=== PATIENT | female | born 1940 | race Caucasian/White ===

== ENCOUNTER 2017-09-05 12:52 | Inpatient (IN) | payer MEDICARE, MEDICAID ==
[2017-09-05 13:16] LABS: #Basophils 0.1 thou/uL (0.0-0.2); #Eosinphils 0.3 thou/uL (0.0-0.7); #Monocytes 0.5 thou/uL (0.11-0.59); #Neutrophils 2.9 thou/uL (1.40-6.50); %Basophils 1.1 % (0.0-1.0); %Eosinophils 4.7 % (0.0-10.0); %Lymphocytes 34.9 % (21.0-51.0); %Monocytes 9.2 % (0.0-10.0); %Neutrophils 50.1 % (42.0-75.0); Hemoglobin 14.9 g/dL (12.0-16.0); Mean Corpuscular HGB CONC 32.8 g/dL (32.0-36.0); Mean Corpuscular Hemoglobin 32.8 pg (27.0-31.0); Mean Platelet Volume 7.8 fL (7.4-10.4); Platelet Count 190 thou/uL (130-400); RBC Distribution Width 12.6 % (11.5-14.5); Red Blood Cell (RBC) Count 4.52 mill/uL (4.20-5.40); White Blood Cell (WBC) Count 5.7 thou/uL (4.8-10.8)
[2017-09-05 13:28] LABS: INR-International Normal Ratio 1.1; PTT 34.4 SEC (22.9-36.1); Prothrombin Time 14.6 SEC (12.0-14.7)
[2017-09-05 13:42] LABS: CKMB 1.7 ng/mL (0-6.6); Troponin I Less than 0.010 ng/mL (< 0.028)
[2017-09-05 13:43] LABS: ALT (SGPT) 16 U/L (8-55); AST (SGOT) 21 U/L (5-34); Alkaline Phosphatase 48 U/L (40-150); Anion Gap 11 mmol/L (10-20); BUN (Urea Nitrogen) 21 mg/dL (9.8-20.1); CK (CPK) 68 U/L (29-168); Calc. Creatinine Clearance 0 mL/min (70-130); Calcium 9.5 mg/dL (7.8-10.44); Carbon Dioxide 27 mmol/L (23-31); Chloride 104 mmol/L (98-107); Estimated GFR-MDRD 52; Globulin 3.3 g/dL (2.4-3.5); Glucose 138 mg/dL (83-110); Potassium 4.9 mmol/L (3.5-5.1); Protein, Total 7.3 g/dL (6.0-8.3); Sodium 137 mmol/L (136-145)
[2017-09-05] MEDS ORDERED: ISOVUE-370 76%-LOCM 1 ML ONE (14:58)
--- NOTE | 2017-09-05 15:41 | CT ---
NONCONTRAST HEAD CT: History: Stroke protocol. Initial left sided facial droop and weakness in the left extremity. Current ly, right sided facial droop and weakness in the extremities. Comparison: 07-19-15 Technique: Noncontrast head CT is performed from skull base to skull vertex. FINDINGS: Exam is limited due to motion degradation. No parenchymal hemorrhage. No extraaxial hematoma. No midl ine shift. Basilar cisterns are patent. Stable atrophy, greatest in the frontal lobes. Cortical chavez white matter differentiation is preserved. Ventricles and sulci are patent and symmetric. Calvarium is intact. Adequate aeration of the sinuses and the mastoid air cells. IMPRESSION: 1. No acute intracranial process. Results of study discussed with Dr. Pond 09-05-17 at 1:13 p.m. POS: [facility]
--- NOTE | 2017-09-05 15:58 | CT ---
EXAM: CT ANGIOGRAM OF THE HEAD CT ANGIOGRAM OF THE NECK 09/05/17 HISTORY: Initial left sided facial droop and weakness in the left extremities, currently on the right side. COMPARISON: None. TECHNIQUE: CT angiogram of the head and neck are performed in the axial plane. Three dimensional reformatted meagan ges are submitted for interpretation. FINDINGS: Cortical chavez-white matter differentiation is preserved. The visualized aerodigestive tract is patent. No mucosal abnormality. Midline fatty raphae of the ton lenny is preserved. Epiglottis has a normal caliber. Pre-epiglottic fat is preserved. Note, there is marked expansion of the hypopharynx with significant air. Findings are of uncertain si gnificance. Symmetric attenuation of the parotid and submandibular glands. Symmetric attenuation of t he sternocleidomastoid muscles. No evidence of lymphadenopathy by size criteria. Upper mediastinum is unremarkable. Ground glass opacities in the lung parenchyma likely represent ayesha ma and chronic change. Cervical spine vertebral body height is maintained. No fracture. CT ANGIOGRAM: The aortic arch has atherosclerotic disease. RIGHT CAROTID: The origin of the right carotid artery has appropriate enhancement and luminal diameter. The right in nominate artery is unremarkable. The right common carotid artery, carotid bifurcation and internal ca rotid artery have an overall appropriate enhancement and luminal diameter. No significant stenosis ba sed upon NASCET criteria. LEFT CAROTID: There is mild to moderate narrowing of the origin of the left carotid artery. The common carotid vidal ry, carotid bifurcation and internal carotid artery have appropriate enhancement and luminal diameter . No significant stenosis based upon NASCET criteria. Both cervical vertebral arteries are patent thr oughout their course in the neck. Right vertebral artery is dominant. Subclavian arteries are unremar kable. CT ANGIOGRAM OF THE HEAD: Distal cervical and internal cranial internal carotid arteries have symmetric enhancement and luminal diameter. No significant stenosis. ANTERIOR CIRCULATION: Appropriate enhancement and luminal diameter of the A1 and M1 segments. Proximal A2 segment and proxi mal MCA branches are essentially symmetric. POSTERIOR CIRCULATION: Both PICA artery origins are unremarkable. Both vertebral arteries supply a normal appearing basilar artery. The left P1 segment has a origin. IMPRESSION: No significant stenosis based upon NASCET criteria. Results of the study discussed with Dr. Pond 09/05/17 at 1:37 p.m. Code CR POS: [facility]
[2017-09-05 17:20] LABS: Troponin I Less than 0.010 ng/mL (< 0.028)
[2017-09-05] MEDS ORDERED: Ondansetron ODT 4 MG TAB SL PRN (19:01)
[2017-09-05] MEDS ORDERED: Acetaminophen 325 MG TAB PO PRN (19:01)
[2017-09-05] MEDS ORDERED: Ondansetron HCl/PF 4 MG/2 ML Vial IVP PRN ×2 (19:01→19:49)
[2017-09-05] MEDS ORDERED: hydrALAZINE 20 MG/ML VIAL SLOW IVP PRN (19:06)
[2017-09-05] MEDS ORDERED: hydrALAZINE 20 MG/ML VIAL SLOW IVP SCH (19:15)
[2017-09-05] MEDS ORDERED: cloNIDine 0.1 MG TAB PO PRN (19:49)
[2017-09-05] MEDS ORDERED: Ondansetron ODT 4 MG TAB PO PRN (19:49)
[2017-09-05 19:50] LABS: Troponin I Less than 0.010 ng/mL (< 0.028)
[2017-09-05] MEDS: Aspirin 81 mg Enteric Coated Tablet PO SCH (21:21)
[2017-09-05] MEDS: Metoprolol Tartrate 100 MG TAB PO SCH (21:21)
[2017-09-05] MEDS: cloNIDine 0.1 MG TAB PO SCH (21:21)
[2017-09-05] MEDS: Apixaban 5 MG TAB PO SCH (21:22)
[2017-09-05] MEDS: hydrALAZINE 10 MG TAB PO SCH (21:22)
[2017-09-05] MEDS: Acetaminophen 500 MG TAB PO PRN (21:22)
[2017-09-05] MEDS: Atorvastatin Calcium 40 MG TAB PO SCH (21:22)
[2017-09-05 21:40] VITALS: BMI 32.2
[2017-09-06] MEDS: Famotidine/PF 20 mg/2ml Vial SLOW IVP SCH ×2 (00:04→10:20)
--- NOTE | 2017-09-06 00:51 | HP ---
DATE OF ADMISSION: 09/05/2017 PRIMARY CARE PROVIDER: Dr. Thomas. CHIEF COMPLAINT: Right facial droop, right arm and left leg weakness. 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 T he patient states she then rested and eventually ate a banana, but noted she has some difficulty with swallowing and speech. The patient noticed weakness of the right upper extremity and questionably l eft lower leg weakness. The patient apparently had similar symptoms on the left side of her body wit hin the last 36 hours resolving spontaneously. The patient did not seek any specific medical attenti on with left-sided weakness; however, EMS personnel were called and patient complained of right-sided weakness. The patient states she had some stumbling of her gait when she attempted to walk across h er room to seek medical help. The patient does admit to history of repetitive falls over the last se veral weeks with bruising of her shoulder and upper extremity. The patient states she has a rolling walker, but does not use it at home. The patient complains of some left-sided headache without visua l disturbance. The patient denied any bowel or bladder incontinence and family does not describe any type of seizure activity. The patient states she had a similar incident occur with TIA-like symptom s approximately 3 months prior to this evaluation and was observed at the [facility]. The patient denies any specific change to her chronic medication regimen and states she takes E liquis for history of atrial fibrillation. The patient denies any travel history, recent head trauma , fever or exposure history. In the emergency room, patient underwent CT imaging of the brain as wel l as CT angiogram of the head and neck showing no focal stenosis or acute infarct. The patient was n oted with labile blood pressures ranging into the low 200 systolic. Initial NIH score was in the 6-7 range and scored 4 by the time of transfer to the stroke unit. PAST MEDICAL HISTORY: 1. Question of prior transient ischemic attack. 2. History of falls. 3. Hypertension, labile. 4. Atrial fibrillation, status post pacemaker placement. 5. History of hypertensive urgency. 6. History of chronic atrial fibrillation on chronic anticoagulation with Eliquis. 7. Sick sinus syndrome. 8. Anxiety/depression. PAST SURGICAL HISTORY: 1. Status post appendectomy. 2. Status post hysterectomy. 3. Status post cholecystectomy. 4. Status post bladder suspension. 5. Status post abdominal hernia repair. 6. Status post pacemaker placement. CURRENT MEDICATIONS: Based on previous admissions, 1. Xanax 0.5 mg p.o. t.i.d. 2. Eliquis 5 mg p.o. b.i.d. 3. Abilify 5 mg p.o. daily. 4. Clonidine 0.1 mg p.o. b.i.d. 5. Multaq 400 mg p.o. b.i.d. 6. Lexapro 10 mg p.o. daily. 7. Hydralazine 10 mg p.o. t.i.d. 8. Hydrochlorothiazide 25 mg p.o. Sunday, Sunday, and Sunday. 9. Bad Axe 10/325 mg 1 tab p.o. q.8 hours p.r.n. pain. 10. Lisinopril 40 mg p.o. b.i.d. 11. Metoprolol tartrate 100 mg p.o. b.i.d. ALLERGIES: AMITRIPTYLINE, AMLODIPINE, CHLORTHALIDONE, AMBIEN, CIPROFLOXACIN, LEVAQUIN, MACROBID, NIF EDIPINE, NORVASC, QUININE, ZOLOFT. FAMILY HISTORY: History of sudden cardiac in her father. Mother with history of hypertension. SOCIAL HISTORY: Patient is and resides in [place], [place]. Accompanied by her granddaughter in the hospital. Lives at home, but admits to multiple falls. No current alcohol, tobacco or illicit drug use REVIEW OF SYSTEMS: The following complete review of systems was negative, unless otherwise mentioned in the HPI or below: Constitutional: Weight loss or gain, ability to conduct usual activities. Sk in: Rash, itching. Eyes: Double vision, pain. ENT/Mouth: Nose bleeding, neck stiffness, pain, te nderness. Cardiovascular: Palpitations, dyspnea on exertion, orthopnea. Respiratory: Shortness of breath, wheezing, cough, hemoptysis, fever or night sweats. Gastrointestinal: Poor appetite, abdom inal pain, heartburn, nausea, vomiting, constipation, or diarrhea. Genitourinary: Urgency, frequenc y, dysuria, nocturia. Musculoskeletal: Pain, swelling. Neurologic/Psychiatric: Anxiety, depressio n. Allergy/Immunologic: Skin rash, bleeding tendency. PHYSICAL EXAMINATION: VITAL SIGNS: Currently, blood pressure 223/123, pulse 61, respiratory rate 15, temperature 97.5 degr ees Fahrenheit, O2 saturation 95% on room air. GENERAL APPEARANCE: This is a 77-year-old female, alert and oriented x3, anxious and respo nsive. HEENT: Pupils are equal, round, and reactive to light and accommodation. Extraocular muscles are in tact. No scleral icterus, no conjunctival injection. Nares patent. OP is clear. Teeth in good rep air. Right facial asymmetry and droop noted. NECK: Supple, no cervical adenopathy, no thyromegaly, no carotid bruits, no JVD appreciated. Cervic al spine with full active and passive range of motion. No meningeal signs appreciated. CHEST: Lungs are clear to auscultation bilaterally. CARDIOVASCULAR: S1, S2 with irregular rate and rhythm. ABDOMEN: Obese, soft, nontender, nondistended. Bowel sounds are positive in all four quadrants. Th ere is no hepatosplenomegaly, no abdominal bruits, no rebound or guarding appreciated. EXTREMITIES: Warm and dry with fair turgor. Bruising noted on the upper extremities. Pulses palpab le distally at the dorsalis pedis, posterior tibial, and popliteal arteries bilaterally. Capillary r efill less than 2 seconds. NEUROLOGIC: Cranial nerves II through XII are grossly intact except for right facial asymmetry. Ton lenny in midline. Gag reflex intact. Dysarthria noted. Right upper extremity weakness noted. Right hand dominant. The patient not observed ambulatory during this exam. PERTINENT LABORATORY AND X-RAY FINDINGS: Sodium 137, potassium 4.9, chloride 104, CO2 of 27, BUN 21, creatinine 1.02 with estimated GFR 52, glucose 138, calcium 9.5. LFTs within normal limits. Tropon in I negative x2. CBC showed a white blood cell count of 5.7, hemoglobin 15, hematocrit 45, MCV 100, platelet count 190 with normal differential. PT 14.6, INR 1.1, PTT 34.4. CT of the brain without c ontrast dated 09/05/2017 showed no acute intracranial process. Her CT angiogram of the head and neck showed no focal stenosis. EKG dated 09/05/2017 by my interpretation shows atrial pacemaker with hea rt rates in the 60s. Normal R-wave progression in the precordial leads. Normal axis. Incomplete ri ght bundle-branch pattern. ASSESSMENT AND PLAN: 1. Acute ischemic left-sided cerebrovascular accident. The patient will be admitted to the stroke u [facility]. We will continue aspirin 81 mg p.o. daily. Consult Neurology Service regarding management give n patient's long-term use of Eliquis prior to this admission. Continue general stroke protocol. A 2 D transthoracic echocardiogram pending. Check fasting lipid profile in the a.m. PT, OT and speech t herapy evaluation. 2. Hypertensive urgency. We will continue hydralazine 10 mg IV every 4 hours for systolic greater t tolbert 170. Resume home antihypertensive regimen to include clonidine 0.1 mg p.o. b.i.d., hydralazine 1 0 mg p.o. t.i.d. and metoprolol tartrate. 3. Chronic kidney disease stage 3. Avoid nephrotoxic agents and contrast media. Repeat creatinine in the a.m. 4. History of falls. PT, OT evaluation with general fall risk precautions. 5. Chronic atrial fibrillation with chronic anticoagulation with Eliquis. Stable rate by telemetry monitoring. Continue rate control measures during the hospital course. Consider holding Eliquis giv en patient's acute presentation. 6. Prophylaxis. Sequential compression devices while in bed. Pepcid 20 mg IV q.12 hours. 7. Code status is FULL. Surrogate medical decision maker is patient's granddaughter.
[2017-09-06 05:52] LABS: Anion Gap 10 mmol/L (10-20); BUN (Urea Nitrogen) 17 mg/dL (9.8-20.1); Calc. Creatinine Clearance 82 mL/min (70-130); Calcium 9.2 mg/dL (7.8-10.44); Carbon Dioxide 27 mmol/L (23-31); Cardiac Risk 3.5 (Less than 4.5); Chloride 104 mmol/L (98-107); Cholesterol 135 mg/dl (< 200 Desired); Estimated GFR-MDRD 67; Glucose 120 mg/dL (83-110); HDL Cholesterol 39 mg/dL (>60 Neg Risk); LDL Cholesterol, Calculated 69 mg/dL; Sodium 137 mmol/L (136-145); Triglycerides 137 mg/dL (Less than 150)
[2017-09-06 05:55] LABS: Eosinophils 6 % (0-10); Hemoglobin 14.4 g/dL (12.0-16.0); Lymphocytes 50 % (21-51); MDiff Complete? YES; Mean Corpuscular HGB CONC 32.3 g/dL (32.0-36.0); Mean Corpuscular Hemoglobin 31.6 pg (27.0-31.0); Mean Platelet Volume 7.3 fL (7.4-10.4); Monocytes 8 % (0-10); Neutrophil 36 % (42-75); PLT Morphology Comment Appears Adequate; Platelet Count 184 thou/uL (130-400); RBC Distribution Width 12.7 % (11.5-14.5); Red Blood Cell (RBC) Count 4.56 mill/uL (4.20-5.40); White Blood Cell (WBC) Count 5.5 thou/uL (4.8-10.8)
[2017-09-06] MEDS ORDERED: ARIPIPRAZOLE 5 MG PO SCH (09:00)
[2017-09-06] MEDS: Escitalopram Oxalate 20 mg Tablet PO SCH (09:14)
[2017-09-06] MEDS: Dronedarone HCl 400 MG TAB PO SCH ×2 (09:15→17:17)
[2017-09-06] MEDS: cloNIDine 0.1 MG TAB PO SCH ×2 (09:15→20:53)
[2017-09-06] MEDS: Apixaban 5 MG TAB PO SCH ×2 (09:15→20:52)
[2017-09-06] MEDS: hydrALAZINE 10 MG TAB PO SCH ×3 (09:16→20:53)
[2017-09-06] MEDS: Metoprolol Tartrate 100 MG TAB PO SCH ×2 (09:16→20:52)
--- NOTE | 2017-09-06 17:13 | RAD ---
RIGHT ANKLE THREE VIEWS: 09/06/17 HISTORY: Right ankle pain, right lower leg pain. FINDINGS/IMPRESSION: The ankle mortise is maintained. No acute fracture or dislocation or bony destruction is seen. There are calcaneal spurs. Degenerative changes are present in the midfoot. POS: [facility]
--- NOTE | 2017-09-06 19:29 | PDOC.PN ---
- Subjective Encounter Start Date: 09/06/17 Encounter Start Time: 19:15 Subjective: f/u for L MCA territorial CVA with R facial droop and R-sided weakness. -: Currently on ASA 81mg daily and Eliquis. No MRI due to pacemaker. -: Still with facial droop but increased strength in R hand - Objective Resuscitation Status: Resuscitation Status FULL:Full Resuscitation MAR Reviewed: Yes Vital Signs & Weight: Vital Signs (12 hours) Temp Pulse Pulse Pulse Resp BP BP 09/06/17 16:28 09/06/17 15:50 61 183/75 H 09/06/17 15:27 98.1 F 63 18 09/06/17 12:31 97.6 F 61 16 09/06/17 11:08 62 65 181/85 H 09/06/17 10:26 09/06/17 09:16 62 190/87 H 09/06/17 09:15 190/87 H 09/06/17 08:59 97.6 F 61 16 09/06/17 08:10 97.1 F L 62 20 09/06/17 08:00 61 59 L 190/87 H BP BP Pulse Ox Pulse Ox Pulse Ox 09/06/17 16:28 139/61 09/06/17 15:50 09/06/17 15:27 183/75 H 92 L 09/06/17 12:31 134/55 L 93 L 09/06/17 11:08 153/78 H 97 97 09/06/17 10:26 150/84 H 09/06/17 09:16 09/06/17 09:15 09/06/17 08:59 93 L 09/06/17 08:10 190/87 H 93 L 09/06/17 08:00 152/89 H 93 L Weight Admit Weight 205 lb 11.2 oz Weight 205 lb 11.2 oz Result Diagrams: 09/06/17 04:48 09/06/17 04:48 Radiology Reviewed by me: Yes (R ankle - no acute fx) EKG Reviewed by me: Yes (Tele - A-paced) Phys Exam - Physical Examination Constitutional: NAD HEENT: PERRLA, oral pharynx no lesions Neck: no JVD, supple Respiratory: no wheezing, clear to auscultation bilateral Cardiovascular: RRR Gastrointestinal: soft, non-tender, no distention, positive bowel sounds Musculoskeletal: no edema, pulses present R facial droop, mild dysarthria, R hand weakness Neurological: normal sensation, moves all 4 limbs Psychiatric: A&O x 3 Skin: normal turgor, cap refill <2 seconds Dx/Plan (1) Acute CVA (cerebrovascular accident) Code(s): I63.9 - CEREBRAL INFARCTION, UNSPECIFIED Status: Acute Comment: L- sided CVA with R-sided weakness, ASA 81mg daily, continue Eliquis (2) Facial droop Code(s): R29.810 - FACIAL WEAKNESS Status: Acute Comment: Persists, follow clinically (3) Dysarthria Code(s): R47.1 - DYSARTHRIA AND ANARTHRIA Status: Acute Comment: Secondary to #1, modified diet (4) Hypertensive urgency Code(s): I16.0 - HYPERTENSIVE URGENCY Status: Chronic Comment: Resolved, continue Metoprolol, Hydralazine, monitor serial BP's (5) CKD (chronic kidney disease), stage III Code(s): N18.3 - CHRONIC KIDNEY DISEASE, STAGE 3 (MODERATE) Status: Chronic Comment: Stable, avoid nephrotoxic meds and contrast media (6) Chronic atrial fibrillation Code(s): I48.2 - CHRONIC ATRIAL FIBRILLATION Status: Chronic Comment: Rate- controlled, continue Eliquis 5mg BID - Plan PT/OT, social media campaign manager, speech therapy, out of bed/ambulate, DVT proph w/SCDs Stable overall -: Continue ASA 81mg daily -: Continue Eliquis 5mg BID -: PT for mobilization, likely will need outpt PT -: Home in am * .
[2017-09-06] MEDS: Aspirin 81 mg Enteric Coated Tablet PO SCH (20:52)
[2017-09-06] MEDS: Famotidine 20 MG TAB PO SCH (20:53)
[2017-09-06] MEDS: Atorvastatin Calcium 40 MG TAB PO SCH (20:53)
--- NOTE | 2017-09-07 01:27 | CON ---
DATE OF CONSULTATION: 09/06/2017 REFERRING PHYSICIAN: Humberto Sorenson DO REASON FOR CONSULTATION: Right facial droop and right upper extremity weakness. HISTORY OF PRESENT ILLNESS: Ms. Henson is a pleasant 77-year-old female with a history o f chronic atrial fibrillation presented with the acute onset of right facial droop and right arm and leg weakness. The patient reports that she woke up yesterday morning and was noted to have right fac ial droop. She also noticed that she was having difficulty with picking things up with the right tolbert d. She also noticed weakness in right arm and right leg. She was having difficulty with walking, wh ich prompted her to call EMS and the patient was brought to the [facility]. She notes that her symptoms are somewhat better today, but she continues to have facial droop and slurred spee ch. She denies any headache, chest pain, palpitation, nausea, vomiting, abdominal pain. PAST MEDICAL HISTORY: Significant for hypertension; chronic atrial fibrillation, status post pacemak er placement and on Eliquis; history of hypertensive urgency; sick sinus syndrome; anxiety; and depre ssion. PAST SURGICAL HISTORY: Significant for appendectomy, hysterectomy, cholecystectomy, bladder suspensi on, abdominal hernia repair, and pacemaker placement. CURRENT MEDICATIONS: 1. Xanax 0.5 mg t.i.d. 2. Eliquis 5 mg b.i.d. 3. Abilify 5 mg daily. 4. Clonidine 0.1 mg b.i.d. 5. Multaq 400 mg b.i.d. 6. Lexapro 10 mg daily. 7. Hydralazine 10 mg t.i.d. 8. Hydrochlorothiazide 25 mg every Sunday, Sunday, Sunday. 9. Moseley 10/325 one tab q.8 hours p.r.n. 10. Lisinopril 40 mg b.i.d. 11. Metoprolol 100 mg b.i.d. ALLERGIES: AMITRIPTYLINE, AMLODIPINE, CHLORTHALIDONE, AMBIEN, CIPROFLOXACIN, LEVAQUIN, MACROBID, NIF EDIPINE, NORVASC, QUININE, AND ZOLOFT. FAMILY HISTORY: Significant for father with sudden cardiac . Mother with history of hypertensi on. SOCIAL HISTORY: She denies smoking, alcohol use, or illicit drug use. REVIEW OF SYSTEMS: As mentioned in HPI, otherwise negative. PHYSICAL EXAMINATION: VITAL SIGNS: Blood pressure of 139/61, pulse of 61, temperature of 98.1, respirations of 18, O2 sat of 92% on room air. GENERAL: Well-developed, well-nourished female in no apparent distress. RESPIRATORY: Clear to auscultation bilaterally. CARDIOVASCULAR: Regular rate and rhythm. NEUROLOGIC: Mental status: The patient is awake, alert, oriented x3. Speech and language: Fluent speech. Cranial nerves: Pupils are 3 mm and reactive. Visual barros are intact. Extraocular muscl es are intact. No nystagmus noted. There is a right facial droop noted. Tongue and uvular are midl ine. Motor exam showed normal tone and bulk with 4/5 strength in the right upper and right lower ext remity. Sensory: Mildly diminished sensation in the right side compared to the left side. Coordina tion: Intact to [id number] and finger tapping bilaterally. LABORATORY DATA: Reviewed, which included CBC; coag panel; CMP; lipid profile, which is significant for total cholesterol 135, LDL of 69, HDL of 39, triglyceride 137, otherwise unremarkable. IMAGING STUDIES: CT head without contrast was reviewed, which showed no acute intracranial abnormali ty. CT angiogram of the head and neck were reviewed, which showed no acute intracranial or extracran ial vascular abnormality. IMPRESSION: 1. Right facial droop, likely lacunar infarct involving the left cerebral hemisphere. 2. Hypertension. 3. Chronic atrial fibrillation. Ms. Henson is a pleasant 77-year-old female, who presented with an episode of right facia l droop and right-sided weakness. Her exam is consistent with an acute ischemic event. This is like ly secondary to her poorly controlled blood pressure. At this time, she is already on Eliquis for ch ronic atrial fibrillation, which I would recommend continuing at the same dose. I will add aspirin 8 1 mg daily for secondary stroke prevention. She will follow up with her event manager as outpatient. Continue PT, OT, speech therapy. Thank you for your consultation.
[2017-09-07] MEDS: Acetaminophen 500 MG TAB PO PRN (07:18)
[2017-09-07] MEDS: Dronedarone HCl 400 MG TAB PO SCH ×2 (08:46→16:02)
[2017-09-07] MEDS: Aripiprazole 10 MG TAB PO SCH (08:47)
[2017-09-07] MEDS: Apixaban 5 MG TAB PO SCH ×2 (08:48→20:35)
[2017-09-07] MEDS: cloNIDine 0.1 MG TAB PO SCH ×2 (08:49→20:36)
[2017-09-07] MEDS: Escitalopram Oxalate 20 mg Tablet PO SCH (08:50)
[2017-09-07] MEDS: Famotidine 20 MG TAB PO SCH ×2 (08:50→20:38)
[2017-09-07] MEDS: hydrALAZINE 10 MG TAB PO SCH ×3 (08:51→20:38)
[2017-09-07] MEDS: Metoprolol Tartrate 100 MG TAB PO SCH ×2 (08:51→20:38)
--- NOTE | 2017-09-07 08:59 | PDOC.PN ---
- Subjective Encounter Start Date: 09/07/17 Encounter Start Time: 08:10 Subjective: f/u for CVA with R facial droop, R-sided weakness. Still with some R - -: sided weakness and facial droop. Tolerating mech soft/nectar thick -: diet. - Objective Resuscitation Status: Resuscitation Status FULL:Full Resuscitation MAR Reviewed: Yes Vital Signs & Weight: Vital Signs (12 hours) Temp Pulse Resp BP BP Pulse Ox 09/07/17 08:51 60 166/68 H 09/07/17 08:49 166/68 H 09/07/17 07:36 98.2 F 60 20 166/68 H 96 09/07/17 07:12 168/68 H 09/07/17 05:13 61 173/74 H 09/07/17 03:26 98.3 F 58 L 18 172/85 H 94 L 09/07/17 00:02 97.9 F 60 18 147/76 H 95 Weight Admit Weight 205 lb 11.2 oz Weight 205 lb 11.2 oz I&O: 09/06/17 09/07/17 09/08/17 06:59 06:59 06:59 Intake Total 300 Balance 300 Result Diagrams: 09/06/17 04:48 09/06/17 04:48 EKG Reviewed by me: Yes (Tele - A-paced) Phys Exam - Physical Examination Constitutional: NAD HEENT: PERRLA, oral pharynx no lesions Neck: no JVD, supple Respiratory: no wheezing, clear to auscultation bilateral Cardiovascular: RRR Gastrointestinal: soft, non-tender, no distention, positive bowel sounds Musculoskeletal: no edema, pulses present mild dysarthria, R facial asymmetry, R-sided weakness Neurological: normal sensation, moves all 4 limbs Psychiatric: A&O x 3 Skin: normal turgor, cap refill <2 seconds Dx/Plan (1) Acute CVA (cerebrovascular accident) Code(s): I63.9 - CEREBRAL INFARCTION, UNSPECIFIED Status: Acute Comment: L- sided CVA with R-sided weakness, ASA 81mg daily, continue Eliquis, SNF/Rehab options given deficits and hx of recent falls (2) Facial droop Code(s): R29.810 - FACIAL WEAKNESS Status: Acute Comment: Persists, follow clinically, Speech therapy following (3) Dysarthria Code(s): R47.1 - DYSARTHRIA AND ANARTHRIA Status: Acute Comment: Secondary to #1, modified diet with mech soft/nectar thick liquids, follow progress (4) Hypertensive urgency Code(s): I16.0 - HYPERTENSIVE URGENCY Status: Chronic Comment: Resolved, continue Metoprolol, Hydralazine, monitor serial BP's (5) CKD (chronic kidney disease), stage III Code(s): N18.3 - CHRONIC KIDNEY DISEASE, STAGE 3 (MODERATE) Status: Chronic Comment: Stable, avoid nephrotoxic meds and contrast media (6) Chronic atrial fibrillation Code(s): I48.2 - CHRONIC ATRIAL FIBRILLATION Status: Chronic Comment: Rate- controlled, continue Eliquis 5mg BID - Plan PT/OT, child welfare social worker, speech therapy, out of bed/ambulate, DVT proph w/SCDs Stable overall -: CM consult for SNF/Rehab options given hx of recent falls, lives alone -: persistent R-sided weakness and lack of transportation -: Continue ASA 81mg daily -: Continue Eliquis 5mg BID * Fall risk precautions * Await SNF/Rehab options
[2017-09-07] MEDS: Aspirin 81 mg Enteric Coated Tablet PO SCH (20:35)
[2017-09-07] MEDS: Atorvastatin Calcium 40 MG TAB PO SCH (20:35)
[2017-09-08] MEDS: Acetaminophen 500 MG TAB PO PRN (01:02)
[2017-09-08 05:33] LABS: Hemoglobin 13.7 g/dL (12.0-16.0); Platelet Count 176 thou/uL (130-400)
[2017-09-08] MEDS: Metoprolol Tartrate 100 MG TAB PO SCH (08:04)
[2017-09-08] MEDS: Escitalopram Oxalate 20 mg Tablet PO SCH (08:04)
[2017-09-08] MEDS: cloNIDine 0.1 MG TAB PO SCH (08:05)
[2017-09-08] MEDS: Apixaban 5 MG TAB PO SCH (08:05)
[2017-09-08] MEDS: hydrALAZINE 10 MG TAB PO SCH (08:05)
[2017-09-08] MEDS: Dronedarone HCl 400 MG TAB PO SCH (08:06)
[2017-09-08] MEDS: Aripiprazole 10 MG TAB PO SCH (08:06)
[2017-09-08] MEDS: Famotidine 20 MG TAB PO SCH (08:07)
[2017-09-08 11:58] VITALS: BP 152/80; TEMP 98.1
--- NOTE | 2017-09-08 19:59 | EKG ---
Test Reason : Blood Pressure : / mmHG Vent. Rate : 066 BPM Atrial Rate : 068 BPM P-R Int : 000 ms QRS Dur : 116 ms QT Int : 450 ms P-R-T Axes : 000 029 -04 degrees QTc Int : 471 ms Electronic atrial pacemaker Incomplete right bundle branch block Prolonged QT Abnormal ECG Confirmed by MIRIAM FROST ([id number]), editor in chief JUSTYNA LUNA ([id number]) on 09/08/2017 7:59:25 PM Referred By: Confirmed By:MIRIAM FROST
--- NOTE | 2017-09-08 20:18 | DIS ---
PRIMARY CARE PHYSICIAN: Isabel Thomas M.D. DATE OF ADMISSION: 09/05/2017 DATE OF DISCHARGE: 09/08/2017 DISCHARGE DIAGNOSES: 1. Acute ischemic cerebrovascular accident. 2. Hypertensive urgency. CONSULTATIONS DURING THIS HOSPITALIZATION: Neurology, Dr. Yani Hardin. CONDITION OF PATIENT ON THE DAY OF DISCHARGE: Stable. I assessed Ms. Henson on the day of dischar . She denies any chest pain or shortness of breath. She has mild numbness over the right side of her face. She denies any motor or sensory deficits. Vital signs are stable. Her blood pressure con tinues to be high. S1 and S2 are heard, regular. Lungs are clear to auscultation bilaterally. Neur ologic examination is nonfocal. DISCHARGE MEDICATIONS: Her lisinopril dose was changed to 20 mg 2 times a day. She has been started on aspirin 81 mg daily. Otherwise, her home medications were resumed, including apixaban 5 mg 2 nickolas es a day, Abilify 5 mg daily, Lipitor 40 mg at bedtime, clonidine 0.1 mg 2 times a day, dronedarone 4 00 mg 2 times a day, Lexapro 10 mg daily, hydralazine 10 mg 3 times a day and Lopressor 100 mg 2 time s a day. HOSPITAL COURSE: Ms. Henson is a pleasant 77-year-old lady who was admitted to [facility] on 09/05/2017 for right facial droop and right-sided weakness, likely secondary to lac unar infarct involving the left cerebral hemisphere. She was also found to be in hypertensive urgenc y. A CT scan of the brain, noncontrast on 09/05/2017 did not show any acute intracranial process. C T angiography on 09/05/2017 did not show any significant stenosis. MRI could not be done due to pace maker. She was seen by Neurology Service. She has been started on aspirin as well as statin. Durin g this hospitalization, she had triglycerides 137, cholesterol 135, LDL cholesterol 69, and HDL luz sterol 39. She continued to improve clinically. Her blood pressure was elevated during this hospitalization. H er MARGO inhibitor was on hold during this hospitalization and is being restarted. She was seen by Therapy Services. She has been accepted for inpatient rehabilitation at [facility]. She is being discharged to [facility] in a stable condition. On the day of discharge, she has creatinine of 0.91, estimated GFR of 60, hemoglobin 13.7, and platel et count 176,000. Many thanks for allowing me to participate in your patient's care. Please feel free to contact me wi th any questions or concerns. DISCHARGE DESTINATION: [facility]. TOTAL AMOUNT OF TIME SPENT COORDINATING THIS DISCHARGE: 33 minutes.
== END 2017-09-08 12:25 | DRG 65 ==
LOC: ERS 12:52 → 2SE 17:14
PROVIDERS: ADMIT Family Medicine; ATTEND Family Medicine
DX: I63.9 Cerebral infarction, unspecified (principal); G81.91 Hemiplegia, unspecified affecting right dominant side; I48.2 Chronic atrial fibrillation; N18.3 Chronic kidney disease, stage 3 (moderate); R29.810 Facial weakness; R47.1 Dysarthria and anarthria; I16.0 Hypertensive urgency; I12.9 Hypertensive chronic kidney disease with stage 1 through stage 4 chronic kidney disease, or unspecified chronic kidney disease; Z95.0 Presence of cardiac pacemaker; Z86.73 Personal history of transient ischemic attack (TIA), and cerebral infarction without residual deficits; Z79.01 Long term (current) use of anticoagulants; F41.9 Anxiety disorder, unspecified; F32.9 Major depressive disorder, single episode, unspecified; R47.81 Slurred speech
CPT/HCPCS: 36415; 36416; 70450; 70496; 70498; 80048; 80053; 80061; 82553; 82565; 84484; 85007; 85014; 85018; 85025; 85027; 85049; 85610; 85730; 93005; 93306; 94760; G8978-GP-CJ; G8979-GP-CI; G8987-GO-CJ; G8988-GO-CI; G8996-GN-CK; G8997-GN-CI; J0360; S0028

== ENCOUNTER 2017-09-21 16:48 | Emergency (ER) | payer MEDICARE, MEDICAID ==
[2017-09-21] MEDS ORDERED: Acetaminophen 500 MG TAB ONE (17:25)
--- NOTE | 2017-09-21 18:15 | RAD ---
THREE VIEWS RIGHT FOOT: 09/21/17 HISTORY: Right foot pain. COMPARISON: None available. FINDINGS: There is osteoarthritis involving the interphalangeal joints with much greater osteoarthritis involvi ng the tarsometatarsal joints with joint space narrowing and subchondral cystic changes. There are pr ominent osteophyte formation seen at the first tarsometatarsal joint. There is suggestion of curvilin ear lucency within the distal aspect anterior process of the talus, but this is only appreciated on t he AP projection and not seen on the oblique or lateral projections and may be artifactual. Mild subc utaneous soft tissue swelling at the dorsal aspect of the foot. Plantar calcaneal enthesophyte is see n. Vascular calcifications seen posterior to the ankle. There is a tiny linear metallic foreign body overlying the plantar subcutaneous soft tissues at the level of the midfoot. IMPRESSION: Osteoarthritis with much greater involving the tarsometatarsal joints. Tiny metallic foreign body in the subcutaneous soft tissues mid portion plantar aspect of the right foot. POS: [facility]
== END 2017-09-21 18:32 | disposition home or self-care (01) ==
LOC: ERS 16:48
DX: M84.371A Stress fracture, right ankle, initial encounter for fracture (principal); M85.80 Other specified disorders of bone density and structure, unspecified site; I10 Essential (primary) hypertension; F41.9 Anxiety disorder, unspecified; F32.9 Major depressive disorder, single episode, unspecified; Z79.899 Other long term (current) drug therapy; Z79.82 Long term (current) use of aspirin; Z86.73 Personal history of transient ischemic attack (TIA), and cerebral infarction without residual deficits

== ENCOUNTER 2017-09-27 11:49 | Observation (INO) | payer MEDICARE, MEDICAID ==
[2017-09-27] MEDS ORDERED: Labetalol HCl 100 MG/20 ML VIAL ONE (12:20)
--- NOTE | 2017-09-27 12:26 | CT ---
CT BRAIN WITHOUT CONTRAST: Date: 09/27/17 HISTORY: Stroke alert. COMPARISON: CT brain dated 09/05/17. FINDINGS: Hypodensity left basal ganglia, similar. Old infarction. No acute territorial infarct or hemorrhage. No midline shift or mass effect. Ventricular size and extraaxial CSF spaces are similar. IMPRESSION: 1. No acute territorial infarct or hemorrhage. Left basal ganglia hypodensity, similar to comparison examination. 2. Mild asymmetrically increased density of the left M3 segment, likely artifactual due to dehydrati on. This was seen in a [address] Palacio notified of findings via telephone at 1200 hours. CODE CR. POS: [facility]
--- NOTE | 2017-09-27 13:05 | CT ---
CT ANGIO NECK AND HEAD PERFORMED WITH INTRAVENOUS CONTRAST ENHANCEMENT WITH 3D RECONSTRUCTIONS: HISTORY: Slurred speech. Last seen normal at 0930 hours. COMPARISON: 09/05/2017 FINDINGS: CTA ANGIO NECK: The lung apices are clear of any infiltrative process. There are atherosclerotic ch anges of the aortic arch. There is a separate origin of the left common carotid artery. The right common carotid artery is tortuous, but no significant stenosis. There is calcified plaque without significant narrowing of the origin of the right internal carotid artery. The external carot id artery is unremarkable. The left carotid system is also very tortuous. No evidence of any stenos is by NASCET criteria of the common, internal, or external carotid arteries. Incidental note is made of what appears to be a left lobe thyroid nodule. The right vertebral is slightly larger than the left. The right has a more significant contribution to the basilar artery. CT ANGIO HEAD: There is some atherosclerotic change in the cavernous portions of both common carotid arteries. The anterior and middle cerebral arteries and their branches appear unremarkable. There is what appears to be an origin of the left posterior communicating artery. The basilar artery is normal in caliber. No signs of any aneurysm. IMPRESSION: 1. No evidence of any significant stenosis of either internal carotid artery by NASCET criteria. 2. No evidence for any significant intracranial areas of stenosis or intraluminal thrombus. Findings telephoned to the emergency room at 1229 hours. CODE CR POS: [facility]
[2017-09-27] MEDS ORDERED: ISOVUE-370 76%-LOCM 1 ML ONE (13:39)
[2017-09-27 14:09] LABS: PTT 38.5 SEC (22.9-36.1)
[2017-09-27 14:11] LABS: #Eosinphils 0.2 thou/uL (0.0-0.7); #Lymphocytes 1.8 thou/uL (1.20-3.40); #Monocytes 0.6 thou/uL (0.11-0.59); #Neutrophils 2.6 thou/uL (1.40-6.50); %Basophils 0.8 % (0.0-1.0); %Eosinophils 3.6 % (0.0-10.0); %Lymphocytes 35.4 % (21.0-51.0); %Monocytes 11.1 % (0.0-10.0); %Neutrophils 49.1 % (42.0-75.0); Hemoglobin 12.9 g/dL (12.0-16.0); Mean Corpuscular HGB CONC 33.5 g/dL (32.0-36.0); Mean Corpuscular Volume 98.7 fl (81.0-99.0); Mean Platelet Volume 7.9 fL (7.4-10.4); Platelet Count 167 thou/uL (130-400); RBC Distribution Width 12.1 % (11.5-14.5); Red Blood Cell (RBC) Count 3.92 mill/uL (4.20-5.40); White Blood Cell (WBC) Count 5.2 thou/uL (4.8-10.8)
[2017-09-27 14:14] LABS: INR-International Normal Ratio 1.4; Prothrombin Time 17.7 SEC (12.0-14.7)
[2017-09-27 14:22] LABS: ALT (SGPT) 19 U/L (8-55); AST (SGOT) 23 U/L (5-34); Albumin 3.5 g/dL (3.4-4.8); Alkaline Phosphatase 62 U/L (40-150); Anion Gap 13 mmol/L (10-20); BUN (Urea Nitrogen) 21 mg/dL (9.8-20.1); Bilirubin, Total 0.8 mg/dL (0.2-1.2); Calc. Creatinine Clearance 0 mL/min (70-130); Calcium 8.8 mg/dL (7.8-10.44); Carbon Dioxide 22 mmol/L (23-31); Chloride 101 mmol/L (98-107); Estimated GFR-MDRD 57; Globulin 3.1 g/dL (2.4-3.5); Glucose 117 mg/dL (83-110); Potassium 4.3 mmol/L (3.5-5.1); Protein, Total 6.6 g/dL (6.0-8.3); Sodium 132 mmol/L (136-145)
[2017-09-27 14:26] LABS: CKMB 1.9 ng/mL (0-6.6); Troponin I Less than 0.010 ng/mL (< 0.028)
[2017-09-27] MEDS ORDERED: Labetalol HCl 100 MG/20 ML VIAL SLOW IVP PRN (17:14)
[2017-09-27] MEDS ORDERED: Acetaminophen 325 MG TAB ONE (18:24)
[2017-09-27 20:25] VITALS: BMI 29.2
[2017-09-27] MEDS ORDERED: Aspirin 81 mg Enteric Coated Tablet PO SCH (21:00)
[2017-09-27] MEDS ORDERED: Atorvastatin Calcium 40 MG TAB PO SCH (21:00)
[2017-09-27] MEDS: Lisinopril 20 MG TAB PO SCH (21:41)
[2017-09-27] MEDS: Apixaban 5 MG TAB PO SCH (21:42)
[2017-09-27] MEDS: hydrALAZINE 10 MG TAB PO SCH (21:42)
[2017-09-27] MEDS: Metoprolol Tartrate 100 MG TAB PO SCH (21:43)
[2017-09-27] MEDS: Dronedarone HCl 400 MG TAB PO SCH (21:45)
[2017-09-28] MEDS: Acetaminophen 325 MG TAB PO PRN ×2 (03:11→08:01)
[2017-09-28] MEDS ORDERED: traZODone HCl 50 MG TAB PO SCH ×2 (03:15→21:00)
[2017-09-28 03:18] VITALS: TEMP 97.9
[2017-09-28 06:57] LABS: Anion Gap 14 mmol/L (10-20); BUN (Urea Nitrogen) 18 mg/dL (9.8-20.1); Calc. Creatinine Clearance 76 mL/min (70-130); Carbon Dioxide 24 mmol/L (23-31); Chloride 105 mmol/L (98-107); Estimated GFR-MDRD 66; Glucose 103 mg/dL (83-110); Potassium 4.5 mmol/L (3.5-5.1); Sodium 138 mmol/L (136-145)
[2017-09-28 06:58] LABS: Cardiac Risk 2.6 (Less than 4.5)
[2017-09-28 07:07] LABS: Eosinophils 3 % (0-10); Hemoglobin 13.3 g/dL (12.0-16.0); Lymphocytes 40 % (21-51); MDiff Complete? YES; Mean Corpuscular HGB CONC 33.2 g/dL (32.0-36.0); Mean Corpuscular Hemoglobin 32.5 pg (27.0-31.0); Mean Corpuscular Volume 97.9 fl (81.0-99.0); Mean Platelet Volume 7.8 fL (7.4-10.4); Monocytes 8 % (0-10); Neutrophil 48 % (42-75); Platelet Count 162 thou/uL (130-400); RBC Distribution Width 12.1 % (11.5-14.5); Red Blood Cell (RBC) Count 4.11 mill/uL (4.20-5.40); White Blood Cell (WBC) Count 4.6 thou/uL (4.8-10.8)
--- NOTE | 2017-09-28 07:48 | HP ---
HISTORY OF PRESENT ILLNESS: The patient is a very pleasant 77-year-old female who was recently disch arged from the hospital on 09/08/2017 for possible stroke, which was most likely secondary to hyperte nsive emergency. The patient had a CT noncontrast that did not show any acute intracranial process. During that admission, she also underwent a CT angiogram on 09/05/2017 that did not show any signifi cant stenosis. Unable to do an MRI last time because of the pacemaker. The patient presented today to the hospital with complaints of slurring of speech and significant hilary vated blood pressure and also left-sided headache. The patient stated that these symptoms she has be en feeling like this today, but feels unwell especially when she takes clonidine. However, the patie nt stated that her blood pressure was really high and the visiting nurse could not give her anything to decrease her blood pressure. At that time, EMS was called and the patient was brought into the spital for further evaluation. The patient underwent a CT head in the ER which indicated no acute territorial infarct or hemorrhage, left basal ganglia hypodensity similar to comparison of previous exam. She then underwent a CT jose ogram which indicated no evidence of any significant stenosis in either internal carotid artery. No evidence of any significant intracranial areas of stenosis or thrombosis. The patient upon my evalua tion did have some speech slurring but not very significant. The patient also states that she has been very depressed recently since she has lost four out of her five kids. PAST MEDICAL HISTORY: 1. Questionable prior TIAs. 2. History of falls and hypertension. 3. Atrial fibrillation, status post pacemaker placement. 4. Hypertensive urgency. 5. Chronic atrial fibrillation, on anticoagulation. 6. Anxiety and depression. PAST SURGICAL HISTORY: Status post appendectomy, hysterectomy, cholecystectomy, bladder suspension, abdominal hernia repair, and pacemaker placement. CURRENT MEDICATIONS: She takes Xanax 0.5 mg t.i.d., Eliquis 5 mg b.i.d., Abilify 5 mg p.o. daily, cl onidine 0.1 mg p.o. b.i.d., Multaq 400 mg p.o. b.i.d., Lexapro 10 mg daily, hydralazine 10 mg p.o. t. i.d., lisinopril 40 mg b.i.d., and Lopressor 100 mg b.i.d. ALLERGIES: She is allergic to AMITRIPTYLINE, AMLODIPINE, CHLORTHALIDONE, AMBIEN, CIPRO, LEVAQUIN, MA CROBID, NIFEDIPINE, NORVASC, QUININE, and ZOLOFT. FAMILY HISTORY: History of sudden cardiac in her father. Her mother has a history of hyperten narciso. SOCIAL HISTORY: The patient is . She lives at home alone and states that she has her daught er around to help her. Denies any alcohol, drugs, or tobacco use. REVIEW OF SYSTEMS: The following complete review of systems was negative, unless otherwise mentioned in the HPI or below: Constitutional: Weight loss or gain, ability to conduct usual activities. Sk in: Rash, itching. Eyes: Double vision, pain. ENT/Mouth: Nose bleeding, neck stiffness, pain, te nderness. Cardiovascular: Palpitations, dyspnea on exertion, orthopnea. Respiratory: Shortness of breath, wheezing, cough, hemoptysis, fever or night sweats. Gastrointestinal: Poor appetite, abdom inal pain, heartburn, nausea, vomiting, constipation, or diarrhea. Genitourinary: Urgency, frequenc y, dysuria, nocturia. Musculoskeletal: Pain, swelling. Neurologic/Psychiatric: Anxiety, depressio n. Allergy/Immunologic: Skin rash, bleeding tendency. All negative except for the ones mentioned i n the HPI. PHYSICAL EXAMINATION: VITAL SIGNS: The patient's blood pressure upon arrival to the ER was at 222/101, currently at 176/72 , heart rate of 60, respirations 19, 94% on room air, and she was afebrile at 98.8. GENERAL: She is awake, alert, oriented x3, does not appear in any distress. HEENT: Mucous membranes appear to be a little bit dry. No lymphadenopathy noted. NEUROLOGIC: Pupils equal and reactive to light. CHEST: Clear to auscultation. No rhonchi or wheezes noted. CARDIOVASCULAR: S1, S2 present. No murmurs, rubs, or gallops. ABDOMEN: Obese. Bowel sounds are present x2. She does have some pain upon palpation to her epigast ronnie area. EXTREMITIES: She does have mild lower extremity edema. NEUROLOGIC: She has got 5/5 bilateral upper extremity and lower extremity strength. Sensation intac t in bilateral upper and lower extremity. Cranial nerves of III-XI are intact. LABORATORY RESULTS: Are as the following, WBCs of 5.2, hemoglobin of 12.9, hematocrit of 38.7, and p latelets of 167. Her chemistry panel, sodium of 132, potassium of 4.3, BUN of 21, creatinine of 0.95 . Troponin x1 is negative. LFTs are normal. ASSESSMENT AND PLAN: The patient is a very pleasant 77-year-old female who came into the hospital fo r stroke-like symptoms. 1. Possible transient ischemic attack. The patient underwent a CT head which was negative. She als o had a CT angiogram, which did not show any acute issues. Unable to do an MRI since the patient has a pacemaker. We will admit to Neurology and check lipid panel. The patient recently had an echocar diogram, I do not think we need to repeat it. We will get Neurology to be consulted; however, I am n ot sure if that is going to make a difference. The patient states that she has been compliant with h er medications and she takes all her blood pressure medications. Her transient ischemic attack could be because of her hypertension. The patient further states that she does not like clonidine; howeve r, since it makes her feel very strange, but she did state that she has been compliant with her medic ations. 2. Hypertensive emergency. I believe her current symptoms could be secondary to her blood pressure since her blood pressure on admission was 222/111. Currently, her blood pressure is more controlled. We will continue her home medications. We will also add p.r.n. blood pressure medications. The pa moise states that again she does not like clonidine, may try a different substitute besides clonidine . 3. Atrial fibrillation, rate controlled. We will continue the patient's Eliquis and Multaq. 4. Anxiety and depression. We will continue the patient's home medications. I believe the patient is depressed and I am not sure if she has enough support around to help her with her daily activities . Maybe on discharge, she may consider home health. 5. Deep venous thrombosis prophylaxis. The patient is already on Eliquis.
[2017-09-28] MEDS: Dronedarone HCl 400 MG TAB PO SCH ×2 (07:54→08:13)
[2017-09-28] MEDS: Apixaban 5 MG TAB PO SCH (07:55)
[2017-09-28] MEDS: hydrALAZINE 10 MG TAB PO SCH (07:55)
[2017-09-28] MEDS: Escitalopram Oxalate 10 mg Tablet PO SCH ×2 (07:55)
[2017-09-28] MEDS: Metoprolol Tartrate 100 MG TAB PO SCH (07:56)
[2017-09-28] MEDS: Lisinopril 20 MG TAB PO SCH (07:56)
[2017-09-28] MEDS ORDERED: hydrALAZINE 20 MG/ML VIAL SLOW IVP PRN (08:40)
[2017-09-28] MEDS ORDERED: hydrALAZINE 25 MG TAB PO SCH (09:00)
[2017-09-28] MEDS ORDERED: Aripiprazole 10 MG TAB PO SCH (09:00)
[2017-09-28] MEDS ORDERED: Metoprolol Tartrate 50 MG TAB PO SCH (09:00)
[2017-09-28] MEDS ORDERED: Aspirin 81 mg Enteric Coated Tablet PO SCH (09:00)
[2017-09-28] MEDS ORDERED: Metoprolol Tartrate 100 MG TAB PO SCH (09:00)
--- NOTE | 2017-09-28 09:10 | PRG ---
DATE OF SERVICE: 09/28/2017 REFERRING PHYSICIAN: Hospitalist Service. SUBJECTIVE: Ms. Henson was concerned about her elevated blood pressure secondary to some recent tr eatment with clonidine. She came in to have a blood pressure addressed. There was some question of whether she had some slurred speech. She reports that when she tries to talk too quickly, her speech gets a bit slurred and this is related to a prior left basal ganglia stroke that occurred in the [facility] t. She had a CTA of the carotids and head, which were both unremarkable. This visit, she is on [facility] with aspirin, apixaban and Lipitor. She does not report any other focal neurolog ic symptoms. Her blood pressure has been stabilized and feels she is at a baseline state without any evidence of an acute neurologic event. She can be followed up as an outpatient.
[2017-09-28] MEDS ORDERED: cloNIDine 0.3mg/24 Hour PATCH TD SCH (10:00)
[2017-09-28 11:46] VITALS: BP 159/87
--- NOTE | 2017-09-28 12:42 | DIS ---
PRIMARY CARE PHYSICIAN: Dr. Isabel Thomas. DATE OF ADMISSION: 09/27/2017 DATE OF DISCHARGE: 09/28/2017 DISCHARGE DIAGNOSES: 1. Hypertensive urgency. 2. Medical noncompliance with blood pressure medications. 3. Paroxysmal atrial fibrillation. 4. Hyperlipidemia. 5. Essential hypertension. 6. Severe obesity. 7. Degenerative joint disease. 8. Chronic kidney disease, stage 3. Transient ischemic attack has been ruled out. CONSULTATIONS: Neurology, Dr. Jarod De Leon. PROCEDURES: None. HISTORY AND PHYSICAL: Ms. Henson is 77-year-old female with a recent admission for TIA with negati ve workup, who presents back with slurred speech and dysarthria. She was found to have an elevated b lood pressure in the 190 systolic and has not been taking her medicines as prescribed. She refused t o take her clonidine orally or transdermally because it causes "fire in her veins" and so apparently was stopped off of that by Dr. Thomas about 4 days prior to admission. She states she has been taking other medications as prescribed. HOSPITAL COURSE: The patient was seen and examined by Dr. Boyce in the afternoon of 09/27/2017, austin e medications were resumed, she was watched overnight. Blood pressure remained in the 190s shortly after admission, but dropped down in the 130s around midn ight. She was back up to 170s in the night to 190s by this morning. Her regular home medications we re resumed and her blood pressure was reported 164/89 and her neurologic symptoms are completely reso lved. CT angiogram and CT scan of the brain negative for acute ischemia or arterial blockage. She was seen by Dr. Jarod De Leon with Neurology, who has essentially maximized on her neurologic medications and was stable for discharge. The patient was subsequently increased on her hydralazine to 50 t.i.d. with 25 mg q.6 hours p.r.n. el evated blood pressure over 170 and discharged home in stable condition with outpatient followup. PHYSICAL EXAMINATION: The patient was seen and examined on the day of discharge. DISCHARGE DISPOSITION: Discussed with the patient at the bedside. DISCHARGE MEDICATIONS: 1. Eliquis 5 mg p.o. b.i.d. 2. Abilify 5 mg p.o. daily. 3. Aspirin 81 mg daily. 4. Lipitor 40 mg p.o. at bedtime. 5. Multaq 400 mg p.o. b.i.d., patient refused on the day of discharge. 6. Lexapro 10 mg daily. 7. Hydralazine 50 mg p.o. t.i.d. scheduled and 25 mg p.o. q.6 hours p.r.n. systolic pressure greater than 170. 8. Lisinopril 20 mg p.o. b.i.d. 9. Metoprolol tartrate 100 mg p.o. b.i.d. 10. Tramadol 50 mg p.o. q.6 hours p.r.n. 11. Trazodone 100 mg p.o. at bedtime. DISCHARGE CONDITION: Stable. DISPOSITION: She is being discharged home via private vehicle. DISCHARGE ACTIVITY: Per cardiopulmonary limits. DISCHARGE DIET: Heart healthy recommended. FOLLOWUP APPOINTMENTS: 1. Dr. Moss next week. 2. Dr. Hinojosa is scheduled in November.
== END 2017-09-28 11:41 | disposition home or self-care (01) ==
LOC: ERS 11:49 → ERHOLD 16:19 → 2SE 19:46
PROVIDERS: ADMIT Internal Medicine; ATTEND Internal Medicine
DX: I16.0 Hypertensive urgency (principal); R47.81 Slurred speech; R47.1 Dysarthria and anarthria; I48.0 Paroxysmal atrial fibrillation; I12.9 Hypertensive chronic kidney disease with stage 1 through stage 4 chronic kidney disease, or unspecified chronic kidney disease; N18.3 Chronic kidney disease, stage 3 (moderate); E78.5 Hyperlipidemia, unspecified; M19.90 Unspecified osteoarthritis, unspecified site; F41.8 Other specified anxiety disorders; E66.01 Morbid (severe) obesity due to excess calories; Z68.29 Body mass index [BMI] 29.0-29.9, adult; Z91.14 Patient's other noncompliance with medication regimen; Z95.0 Presence of cardiac pacemaker; Z79.01 Long term (current) use of anticoagulants; Z79.899 Other long term (current) drug therapy; Z88.8 Allergy status to other drugs, medicaments and biological substances; Z88.2 Allergy status to sulfonamides; Z98.890 Other specified postprocedural states
CPT/HCPCS: 70450; 70496; 70498; 80048; 80053; 80061; 82553; 82962; 84484; 85007; 85025; 85027; 85610; 85730; 93005; 96374; 97116; 97139 ×3; 97535; 99285; G0378; G8978; G8979; G8980; G8987; G8988; G8989; 36415; 36416

== ENCOUNTER 2017-09-28 16:58 | Emergency (ER) | payer MEDICARE, MEDICAID ==
[2017-09-28] MEDS ORDERED: hydrALAZINE 25 MG TAB ONE ×2 (17:49→17:53)
== END 2017-09-28 19:25 | disposition home or self-care (01) ==
LOC: ERS 16:58
DX: I10 Essential (primary) hypertension (principal); Z86.73 Personal history of transient ischemic attack (TIA), and cerebral infarction without residual deficits

== ENCOUNTER 2017-10-02 19:35 | Observation (INO) | payer MEDICARE, MEDICAID ==
--- NOTE | 2017-10-02 20:44 | RAD ---
TWO VIEWS OF THE RIGHT HIP 10/02/17 COMPARISON: None. HISTORY: Fall, trauma, pain. FINDINGS: There is soft tissue swelling and subcutaneous fat stranding lateral to the proximal right femur, gre ater trochanter. This soft tissue swelling and patient body habitus limits detailed assessment on the frogleg lateral view, but no displaced fracture or evidence of dislocation is seen. If the patient is unable to bear weight or symptoms persists, CT examination advised to evaluate for a radio occult fracture. IMPRESSION: Prominent lateral soft tissue swelling with no displaced fracture or dislocation. Please see above di scussion. POS: [facility]
--- NOTE | 2017-10-02 20:51 | CT ---
HEAD CT WITHOUT CONTRAST: 10/02/17 COMPARISON: 09/27/17 HISTORY: Fall from standing, trauma, pain. TECHNIQUE: Serial axial CT imaging at 5 mm intervals from vertex through skull base without contrast. FINDINGS: there is diffuse cerebral volume loss with prominence of the CSF containing spaces, particularly the subdural space bilaterally, right greater than left, unchanged when compared to the 09/27/17 exam. There is no intracranial hemorrhage, midline shift or mass effect. The imaged osseous structures and paranasal sinuses/mastoid air cells demonstrate no acute findings. There is atherosclerotic calcifica tions of the distal vertebral arteries and the cavernous carotid arteries. IMPRESSION: Stable head CT as detailed above. No acute findings. POS: [facility]
--- NOTE | 2017-10-02 21:51 | CT ---
CERVICAL SPINE CT WITHOUT CONTRAST: 10/02/17 COMPARISON: 07/19/15 HISTORY: Fall, trauma, pain. TECHNIQUE: Serial axial CT imaging is obtained at 2.5 mm intervals from the skull base through the lung apices w ithout contrast. Coronal and sagittal reformatted imaging obtained. FINDINGS: The C1 ring appears intact. The occipital condyles, the dens, the C1-2 articulation, the craniocervic al junction, and the cervicothoracic junction demonstrate no acute findings. There is prominent degen erative change at the atlantoaxial interspace. There is no anterolisthesis or retrolisthesis seen and there is no prevertebral soft tissue swelling. There is disc space narrowing and degenerative end plate change present at multiple levels, most prom inent at C4-5, C5-6, and C6-7 levels. There is no evidence for a displaced fracture or dislocation within the cervical spine. There is prom inent multilevel cervical spine facet hypertrophy bilaterally, left greater than right. The imaged lung apices demonstrate no acute findings. IMPRESSION: Multilevel stable degenerative change within the cervical spine. No acute fracture or evidence of dis location is seen. POS: [facility]
[2017-10-02] MEDS ORDERED: Fentanyl 100 MCG/2 ML VIAL ONE (22:07)
[2017-10-02] MEDS ORDERED: Ketorolac Tromethamine 30 MG/ML VIAL ONE (22:07)
[2017-10-02 22:54] LABS: #Basophils 0.1 thou/uL (0.0-0.2); #Eosinphils 0.3 thou/uL (0.0-0.7); #Lymphocytes 2.7 thou/uL (1.20-3.40); #Monocytes 0.7 thou/uL (0.11-0.59); #Neutrophils 3.9 thou/uL (1.40-6.50); %Basophils 1.2 % (0.0-1.0); %Eosinophils 4.2 % (0.0-10.0); %Lymphocytes 34.7 % (21.0-51.0); %Monocytes 9.3 % (0.0-10.0); %Neutrophils 50.6 % (42.0-75.0); Hemoglobin 12.9 g/dL (12.0-16.0); Mean Corpuscular HGB CONC 33.8 g/dL (32.0-36.0); Mean Corpuscular Hemoglobin 33.3 pg (27.0-31.0); Mean Corpuscular Volume 98.7 fl (81.0-99.0); Mean Platelet Volume 7.4 fL (7.4-10.4); Platelet Count 202 thou/uL (130-400); RBC Distribution Width 12.2 % (11.5-14.5); Red Blood Cell (RBC) Count 3.86 mill/uL (4.20-5.40); White Blood Cell (WBC) Count 7.7 thou/uL (4.8-10.8)
[2017-10-02 23:01] LABS: INR-International Normal Ratio 1.3; PTT 35.2 SEC (22.9-36.1)
[2017-10-02 23:16] LABS: Anion Gap 10 mmol/L (10-20); BUN (Urea Nitrogen) 16 mg/dL (9.8-20.1); Calc. Creatinine Clearance 0 mL/min (70-130); Calcium 8.6 mg/dL (7.8-10.44); Carbon Dioxide 25 mmol/L (23-31); Chloride 105 mmol/L (98-107); Estimated GFR-MDRD 62; Glucose 139 mg/dL (83-110); Magnesium 2.1 mg/dL (1.6-2.6); Phosphorus 3.2 mg/dL (2.3-4.7); Potassium 3.5 mmol/L (3.5-5.1); Sodium 136 mmol/L (136-145)
--- NOTE | 2017-10-02 23:35 | HP ---
DATE OF ADMISSION: 10/02/2017 REQUESTING PHYSICIAN: Nelli Mejia MD ATTENDING SURGEON: Ethan Lan MD HISTORY OF PRESENT ILLNESS: The patient is a 77-year-old woman who was at home when she tr ipped in her kitchen and landed on her right side. The patient was having right hip pain and swellin g. She was brought to the emergency department, evaluated, examined and noted to have a large expand ing hematoma on her right greater trochanteric area of her hip. She did not have any fractures, but she had a large firm and very painful hematoma that was complicated by the fact that she is on Eliqui s. At which time, we were asked to admit the patient for pain control and to monitor the hematoma. PHYSICAL EXAMINATION: VITAL SIGNS: Blood pressure 175/96, heart rate 61, respirations 14, oxygen saturation 95% on room ai r, temperature is 98.5. GENERAL: The patient is resting comfortably in bed. She is awake, alert, and oriented x3. Genoveva coma scale is 15. HEENT: Head is normocephalic, atraumatic. Eyes: Extraocular motion intact. PERRLA bilaterally. E ars: Atraumatic without discharge. Nose: Atraumatic without discharge. Oropharynx is clear. NECK: Nontender. Trachea is midline. No JVD. CHEST: Clear to auscultation with good inspiratory and expiratory effort. HEART: Regular rate and rhythm. ABDOMEN: Soft, flat, nontender with active bowel sounds. Pelvis is stable. Right hip shows a large lateral hematoma overlying a greater trochanteric area measuring approximately 12 x 10 cm overlying skin still blanches. EXTREMITIES: Neurovascularly intact distally x4. BACK: Atraumatic and nontender. LABORATORY DATA: Pending. RADIOGRAPHIC FINDINGS: CT of the brain without contrast shows no acute changes. CT of the neck with out contrast shows no acute findings. Radiograph of the right hip shows no fracture or dislocation. ASSESSMENT AND PLAN: 1. Status post ground level fall. 2. Right hip soft tissue hematoma, on Eliquis. 3. Pain secondary to acute trauma. Plan will be to admit the patient to the surgical floor for observation and pain control. Begin phys ical therapy in the morning, ice packs to the site overnight, pain control, gastritis, and mechanical DVT prophylaxis. Evaluation, examination, laboratory and radiographic findings were discussed with Dr. Lan after this dictation.
[2017-10-03] MEDS ORDERED: Cyclobenzaprine 10 MG TAB PO PRN (00:55)
[2017-10-03] MEDS ORDERED: Ondansetron ODT 4 MG TAB PO PRN (00:55)
[2017-10-03] MEDS ORDERED: Dextrose 5% in Water 1,000 ML IV PRN (00:55)
[2017-10-03] MEDS ORDERED: hydrALAZINE 20 MG/ML VIAL SLOW IVP PRN (00:55)
[2017-10-03] MEDS ORDERED: Dextrose 50% Abboject 50 ML SYRINGE SLOW IVP PRN (00:55)
[2017-10-03] MEDS ORDERED: Ibuprofen 600 MG TAB PO PRN (00:55)
[2017-10-03] MEDS ORDERED: Ondansetron HCl/PF 4 MG/2 ML Vial IVP PRN (00:55)
[2017-10-03] MEDS ORDERED: traMADol HCl 50 MG TAB PO PRN (00:55)
[2017-10-03 01:40] VITALS: BMI 30.9
[2017-10-03] MEDS: traMADol HCl 50 MG TAB PO SCH ×3 (02:08→14:03)
[2017-10-03] MEDS: Acetaminophen 500 MG TAB PO SCH ×3 (02:08→14:03)
[2017-10-03 04:33] LABS: #Eosinphils 0.3 thou/uL (0.0-0.7); #Lymphocytes 2.4 thou/uL (1.20-3.40); #Monocytes 0.5 thou/uL (0.11-0.59); #Neutrophils 2.9 thou/uL (1.40-6.50); %Basophils 0.6 % (0.0-1.0); %Eosinophils 5.3 % (0.0-10.0); %Lymphocytes 39.2 % (21.0-51.0); %Monocytes 8.7 % (0.0-10.0); %Neutrophils 46.2 % (42.0-75.0); Hemoglobin 11.6 g/dL (12.0-16.0); Mean Corpuscular HGB CONC 33.9 g/dL (32.0-36.0); Mean Corpuscular Hemoglobin 33.9 pg (27.0-31.0); Mean Corpuscular Volume 99.9 fl (81.0-99.0); Mean Platelet Volume 7.9 fL (7.4-10.4); Platelet Count 179 thou/uL (130-400); RBC Distribution Width 12.3 % (11.5-14.5); Red Blood Cell (RBC) Count 3.43 mill/uL (4.20-5.40); White Blood Cell (WBC) Count 6.2 thou/uL (4.8-10.8)
[2017-10-03] MEDS ORDERED: hydrALAZINE 25 MG TAB PO PRN (04:37)
[2017-10-03] MEDS ORDERED: ALPRAZolam 0.5 MG TAB PO PRN (04:37)
[2017-10-03] MEDS ORDERED: cloNIDine 0.3 MG TAB PO SCH (08:00)
[2017-10-03] MEDS ORDERED: Metoprolol Tartrate 100 MG TAB PO SCH (09:00)
[2017-10-03] MEDS ORDERED: Escitalopram Oxalate 10 mg Tablet PO SCH (09:00)
[2017-10-03] MEDS ORDERED: Lisinopril 20 MG TAB PO SCH (09:00)
[2017-10-03] MEDS ORDERED: Famotidine 20 MG TAB PO SCH (09:00)
[2017-10-03 12:16] VITALS: BP 156/77; TEMP 97.2
[2017-10-03] MEDS ORDERED: traZODone HCl 50 MG TAB PO SCH (21:00)
--- NOTE | 2017-10-04 03:16 | DIS ---
DATE OF ADMISSION: 10/02/2017 DATE OF DISCHARGE: 10/03/2017 ADMISSION DIAGNOSES: 1. Status post ground level fall. 2. Right hip/greater trochanteric hematoma. 3. Acute pain secondary to trauma. 4. History of atrial fibrillation, status post permanent pacemaker on Eliquis. DISCHARGE DIAGNOSES: 1. Status post ground level fall. 2. Right hip/greater trochanteric hematoma. 3. Acute pain secondary to trauma. 4. History of atrial fibrillation, status post permanent pacemaker on Eliquis. CONSULTANTS: None. PROCEDURES: None. HOSPITAL COURSE: This is a 77-year-old female who presented to [facility] status post mechanical fall. She was evaluated in the emergency room and found to have significant pain associated with a l arge hematoma; however, she did not have any fractures. Given the patient's chronic anticoagulation status, the decision was made to admit pain control on observation. The following morning, her pain was controlled via p.o. analgesics. Her hemoglobin and hematocrit were stable, and she was hemodyna mically stable. She was medically cleared for discharge on afternoon of 10/03/2017. Per discussion between the trauma services residents, Dr. Farida Looney and the patient's plug wirer, Dr. Hinojosa, the patient is to abstain from Eliquis use until follow up in his office. She should resume her aust[place] e aspirin approximately 3 days after discharge. DISCHARGE DISPOSITION: Home with home health. DISCHARGE CONDITION: Fair. PHYSICAL EXAMINATION: VITAL SIGNS: Temperature 97.2, pulse 63, respirations 17, O2 sat 97% on room air, blood pressure 156 /77. GENERAL: Well-developed elderly female in no acute distress, resting in bed. PULMONARY: Normal work of breathing, symmetric rise. CARDIOVASCULAR: Regular rate and rhythm. GI: Abdomen soft, nontender, nondistended. MUSCULOSKELETAL: Large right hip and posterior buttock/thigh hematoma. EXTREMITIES: Moves all extremities x4. NEUROLOGIC: No focal deficits noted. DISCHARGE INSTRUCTIONS: Discharge instructions were provided to the patient who vocalized her unders tanding. She is to follow up with home health and home PT. She may use warm compresses to help soft en the hematoma. DISCHARGE MEDICATIONS: Patient was discharged on [id number] Tylenol and ibuprofen as well as U ltram 50 mg 1 tab q.6 hours p.r.n. for pain. She is to hold her Eliquis and not restarted until afte r her followup appointment with her plug wirer. She should start low-dose aspirin 81 mg daily, 3 d ays after discharge from the hospital. She may resume her other home medications as ordered. FOLLOWUP APPOINTMENTS: Patient is to follow up with Dr. Hinojosa in approximately 3-4 weeks. She sh ould follow up with her primary care provider peyad. She does not need to follow up formally with [facility], but may call our office with any questions. This is merely a summary of the patient's hospitalization, more in depth information please see her m edical record in its entirety.
== END 2017-10-03 15:41 | disposition home health service (06) ==
LOC: ERS 19:35 → SURG A 22:20
PROVIDERS: ADMIT Surgery; ATTEND Surgery
DX: S70.01XA Contusion of right hip, initial encounter (principal); G89.11 Acute pain due to trauma; I48.91 Unspecified atrial fibrillation; Z88.2 Allergy status to sulfonamides; Z88.8 Allergy status to other drugs, medicaments and biological substances; Z79.01 Long term (current) use of anticoagulants; W01.0XXA Fall on same level from slipping, tripping and stumbling without subsequent striking against object, initial encounter; Y92.000 Kitchen of unspecified non-institutional (private) residence as the place of occurrence of the external cause; Z95.0 Presence of cardiac pacemaker
CPT/HCPCS: 70450; 72125; 73502; 80048; 83735; 84100; 85025 ×2; 85610; 85730; 93005; 96374; 96375; 97139 ×2; 99285; G0378; G8978; G8979; G8980; 36415; G0390; J0360; J1885; J3010

== ENCOUNTER 2018-01-31 06:27 | Outpatient (CLI) | payer MEDICARE, MEDICAID | END 2018-01-31 06:28 | disposition home or self-care (01) | LOC: BICULT 06:27 | PROVIDERS: ATTEND Internal Medicine Nephrology | DX: N39.0 Urinary tract infection, site not specified (principal); N18.2 Chronic kidney disease, stage 2 (mild); N28.1 Cyst of kidney, acquired | CPT/HCPCS: 76770 ==

== ENCOUNTER 2018-04-29 07:51 | Emergency (ER) | payer MEDICARE, MEDICAID ==
[2018-04-29] MEDS ORDERED: Pantoprazole 40 MG VIAL ONE (08:02)
[2018-04-29] MEDS ORDERED: Lorazepam 2 MG/ML VIAL ONE (08:02)
[2018-04-29 08:29] LABS: #Basophils 0.1 thou/uL (0.0-0.2); #Eosinphils 0.2 thou/uL (0.0-0.7); #Lymphocytes 2.7 thou/uL (1.20-3.40); #Monocytes 0.7 thou/uL (0.11-0.59); #Neutrophils 3.5 thou/uL (1.40-6.50); %Eosinophils 3.2 % (0.0-10.0); %Lymphocytes 37.4 % (21.0-51.0); %Monocytes 9.8 % (0.0-10.0); %Neutrophils 48.6 % (42.0-75.0); Hemoglobin 13.7 g/dL (12.0-16.0); Mean Corpuscular HGB CONC 33.7 g/dL (32.0-36.0); Mean Corpuscular Hemoglobin 33.3 pg (27.0-31.0); Mean Corpuscular Volume 98.8 fL (78.0-98.0); Mean Platelet Volume 7.7 fL (7.4-10.4); Platelet Count 223 thou/uL (130-400); Red Blood Cell (RBC) Count 4.11 mill/uL (4.20-5.40); White Blood Cell (WBC) Count 7.2 thou/uL (4.8-10.8)
[2018-04-29 08:41] LABS: ALT (SGPT) 16 U/L (8-55); AST (SGOT) 22 U/L (5-34); Albumin 3.6 g/dL (3.4-4.8); Alkaline Phosphatase 46 U/L (40-150); Anion Gap 14 mmol/L (10-20); BUN (Urea Nitrogen) 25 mg/dL (9.8-20.1); Bilirubin, Total 0.8 mg/dL (0.2-1.2); CK (CPK) 63 U/L (29-168); Calc. Creatinine Clearance 0 mL/min (70-130); Calcium 9.2 mg/dL (7.8-10.44); Carbon Dioxide 23 mmol/L (23-31); Chloride 103 mmol/L (98-107); Estimated GFR-MDRD 35; Globulin 3.4 g/dL (2.4-3.5); Glucose 105 mg/dL (83-110); Potassium 4.5 mmol/L (3.5-5.1); Sodium 135 mmol/L (136-145)
[2018-04-29 08:46] LABS: CKMB 1.9 ng/mL (0-6.6); Troponin I Less than 0.010 ng/mL (< 0.028)
== END 2018-04-29 11:16 | disposition home or self-care (01) ==
LOC: ERS 07:51
DX: R19.7 Diarrhea, unspecified (principal); R06.02 Shortness of breath; Z86.73 Personal history of transient ischemic attack (TIA), and cerebral infarction without residual deficits
CPT/HCPCS: 80053; 82553; 84484; 85025; 93005; 96361; 96374; 96375; C9113; J2060

== ENCOUNTER 2018-06-06 21:12 | Emergency (ER) | payer MEDICARE, MEDICAID ==
[2018-06-06] MEDS ORDERED: HYDROcodone/Acetaminophen 5/325 mg Tablet ONE (21:36)
[2018-06-06] MEDS ORDERED: Adacel (T-DAP) 0.5 ML SYRINGE ONE (21:36)
--- NOTE | 2018-06-06 22:14 | RAD ---
RIGHT KNEE FOUR VIEWS: 06/06/18 HISTORY: 77-year-old female with history of knee injury from a fall. Total knee arthroplasty with heterogeneous bone demineralization and prominent vascular. Minimal gene ralized soft tissue fullness. No fracture or dislocation. IMPRESSION: No acute fracture or dislocation. POS: [facility]
--- NOTE | 2018-06-06 22:17 | RAD ---
RIGHT ANKLE THREE VIEWS: 06/06/18 HISTORY: 77-year-old female with history of injury from a fall. Medial and anterior soft tissue swelling. No acute fracture or dislocation. There is deformity in the mid foot region evidence for old trauma. IMPRESSION: Soft tissue swelling. Heterogeneous bone demineralization. No acute fracture or dislocation. POS: [facility]
--- NOTE | 2018-06-06 22:19 | RAD ---
RIGHT SHOULDER THREE VIEWS: 06/06/18 HISTORY: 77-year-old female with history of right shoulder injury from a fall. FINDINGS/IMPRESSION: Prominent degenerative changes are noted of the AC joint and glenohumeral joint with some intraosseou s cystic changes in the greater tuberosity. But no fracture or dislocation. POS: [facility]
--- NOTE | 2018-06-06 22:27 | RAD ---
RIGHT HIP TWO VIEWS: 06/06/18 HISTORY: 77-year-old female with history of right hip injury following a fall. COMPARISON: 10/02/17. FINDINGS: Right hip joint arthrosis as well as greater trochanteric enthesophytes. Right AC joint degenerative change. Bone demineralization. No acute fracture or dislocation. IMPRESSION: Arthrosis and degenerative changes with bone demineralization without acute fracture. POS: [facility]
--- NOTE | 2018-06-06 22:44 | RAD ---
RIGHT ELBOW FOUR VIEWS: 06/06/18 HISTORY: 77-year-old female with history of right elbow injury from a fall. There is very severe arthrosis changes with considerable deformity of the elbow joint with some exten sive hypertrophic osteophytosis as well as chondrocalcinosis. There is evidence for elbow joint effus ion. I cannot demonstrate with certainty any acute fracture or dislocation. IMPRESSION: Very severe arthrosis and degenerative changes with marked deformity. Evidence for joint effusion. No convincing evidence for acute fracture. If patient has persistent or worsening pain, followup examin ation in 7 to 10 days should be considered. POS: [facility]
--- NOTE | 2018-06-06 22:49 | RAD ---
RIGHT WRIST THREE VIEWS: 06/06/18 HISTORY: 77-year-old female with history of injury from a fall. There is very markedly severe arthrosis changes of the wrist with marked destructive changes involvin g the carpal bones and considerable resultant deformity. Bone demineralization. No evidence for acute fracture or dislocation. IMPRESSION: Very markedly severe chronic appearing destructive changes involving the entire carpal bone region of the wrist with abnormal radiocarpal and distal radioulnar joints consistent with severe arthrosis. N o evidence for acute fracture or dislocation. Diffuse bone demineralization. This appearance could be consistent with severe longstanding inflammatory arthritis. POS: [facility]
== END 2018-06-06 23:12 | disposition home or self-care (01) ==
LOC: ERS 21:12
DX: S80.11XA Contusion of right lower leg, initial encounter (principal); S50.01XA Contusion of right elbow, initial encounter; I10 Essential (primary) hypertension; Z86.73 Personal history of transient ischemic attack (TIA), and cerebral infarction without residual deficits; W17.89XA Other fall from one level to another, initial encounter
CPT/HCPCS: 90471; 90715

== ENCOUNTER 2018-08-08 17:18 | Emergency (ER) | payer MEDICARE, MEDICAID ==
[2018-08-08 18:16] LABS: #Eosinphils 0.2 thou/uL (0.0-0.7); #Lymphocytes 2.2 thou/uL (1.20-3.40); #Monocytes 0.5 thou/uL (0.11-0.59); #Neutrophils 2.3 thou/uL (1.40-6.50); %Basophils 0.7 % (0.0-1.0); %Eosinophils 4.3 % (0.0-10.0); %Lymphocytes 42.2 % (21.0-51.0); %Neutrophils 42.8 % (42.0-75.0); Hemoglobin 13.6 g/dL (12.0-16.0); Mean Platelet Volume 7.8 fL (7.4-10.4); Platelet Count 193 thou/uL (130-400); RBC Distribution Width 11.5 % (11.5-14.5); White Blood Cell (WBC) Count 5.3 thou/uL (4.8-10.8)
[2018-08-08 18:22] LABS: INR-International Normal Ratio 1.1; PTT 34.2 SEC (22.9-36.1); Prothrombin Time 14.6 SEC (12.0-14.7)
[2018-08-08 18:34] LABS: ALT (SGPT) 10 U/L (8-55); AST (SGOT) 20 U/L (5-34); Albumin 3.9 g/dL (3.4-4.8); Alkaline Phosphatase 51 U/L (40-150); Anion Gap 13 mmol/L (10-20); BUN (Urea Nitrogen) 18 mg/dL (9.8-20.1); Bilirubin, Total 0.8 mg/dL (0.2-1.2); Calc. Creatinine Clearance 0 mL/min (70-130); Calcium 9.4 mg/dL (7.8-10.44); Carbon Dioxide 21 mmol/L (23-31); Chloride 107 mmol/L (98-107); Estimated GFR-MDRD 53; Globulin 3.3 g/dL (2.4-3.5); Glucose 100 mg/dL (83-110); Protein, Total 7.2 g/dL (6.0-8.3); Sodium 137 mmol/L (136-145)
--- NOTE | 2018-08-08 18:36 | RAD ---
THREE VIEWS RIGHT WRIST 08/08/18 COMPARISON: 06/06/18. FINDINGS: There are chronic changes involving the distal radius and ulna as well as the carpal bones. Stable de mineralization. Obvious acute fracture is not appreciated. IMPRESSION: Severe chronic appearing destructive changes involving the entire carpal bone region with abnormal ap pearance of the radiocarpal joint and distal radioulnar joint. Findings are compatible with severe ar throsis. POS: [facility]
--- NOTE | 2018-08-08 18:41 | RAD ---
LEFT KNEE FOUR VIEWS 08/08/18 COMPARISON: 09/26/14 HISTORY: Pain. Injury. FINDINGS: No joint effusion. Uncomplicated arthroplasty. No perihardware lucency. No fracture. IMPRESSION: No fracture. POS: [facility]
--- NOTE | 2018-08-08 18:43 | RAD ---
CHEST ONE VIEW: 08/08/18 COMPARISON: 05/18/15. HISTORY: Pain. Injury. FINDINGS: Atherosclerosis of the aorta. Normal cardiac silhouette. Pulmonary vessels and hilum are normal. Measurement Department Chief Clerk dianne changes, without consolidation or mass. No pneumothorax or acute osseous abnormalities. Stable le ft sided transvenous pacemaker. IMPRESSION: No acute cardiopulmonary process. POS: [facility]
--- NOTE | 2018-08-08 18:44 | RAD ---
FOUR VIEWS RIGHT KNEE: 08/08/18 COMPARISON: 06/06/18 HISTORY: Trauma. Pain. FINDINGS: Uncomplicated right knee arthroplasty. No fractures. Vascular calcifications are noted. No malalignme nt or significant joint effusion. IMPRESSION: No posttraumatic change. POS: [facility]
--- NOTE | 2018-08-08 18:50 | CT ---
HEAD CT WITHOUT CONTRAST 08/08/18 HISTORY: Head injury. Patient on Eliquis. COMPARISON: 10/02/17. FINDINGS: No parenchymal hemorrhage. No extra-axial hematoma. No midline shift. Basilar cisterns are patent. Ag e appropriate atrophy. Cortical chavez-white matter differentiation is preserved. No evidence of hydroc ephalus Remote lacunar infarct with cavitation involving the left nolasco radiata. Calvarium is intact. Adequate aeration of the sinuses and mastoid air cells. IMPRESSION: 1. Age appropriate and essentially stable atrophy, greater along the frontal lobes. 2. Cavitary lacunar infarct in the left nolasco radiata. 3. No acute intracranial process. POS: [facility]
--- NOTE | 2018-08-10 21:35 | EKG ---
Test Reason : Blood Pressure : / mmHG Vent. Rate : 060 BPM Atrial Rate : 060 BPM P-R Int : 000 ms QRS Dur : 084 ms QT Int : 422 ms P-R-T Axes : 000 028 -15 degrees QTc Int : 422 ms Electronic atrial pacemaker Nonspecific T wave abnormality Abnormal ECG Confirmed by DEMARIO RUSSELL ([id number]), fashion editor JUSTYNA LUNA ([id number]) on 08/10/2018 9:34:41 PM Referred By: Confirmed By:DEMARIO RUSSELL
== END 2018-08-08 22:33 | disposition home or self-care (01) ==
LOC: ERS 17:18
DX: S60.212A Contusion of left wrist, initial encounter (principal); S60.211A Contusion of right wrist, initial encounter; S20.219A Contusion of unspecified front wall of thorax, initial encounter; Z86.73 Personal history of transient ischemic attack (TIA), and cerebral infarction without residual deficits; Z79.899 Other long term (current) drug therapy; V43.52XA Car driver injured in collision with other type car in traffic accident, initial encounter
CPT/HCPCS: 36415; 70450; 71045; 80053; 84484; 85025; 85610; 85730; 93005

== ENCOUNTER 2018-10-07 05:12 | Outpatient (CLI) | payer MEDICARE, MEDICAID ==
[2018-10-07 14:32] LABS: #Eosinphils 0.1 thou/uL (0.0-0.7); #Monocytes 0.5 thou/uL (0.11-0.59); #Neutrophils 2.5 thou/uL (1.40-6.50); %Basophils 0.5 % (0.0-1.0); %Eosinophils 2.8 % (0.0-10.0); %Lymphocytes 38.1 % (21.0-51.0); %Monocytes 10.1 % (0.0-10.0); %Neutrophils 48.4 % (42.0-75.0); Hemoglobin 14.4 g/dL (12.0-16.0); Mean Corpuscular HGB CONC 32.9 g/dL (32.0-36.0); Mean Corpuscular Hemoglobin 32.5 pg (27.0-31.0); Mean Platelet Volume 8.2 fL (7.4-10.4); Platelet Count 200 thou/uL (130-400); RBC Distribution Width 11.9 % (11.5-14.5); Red Blood Cell (RBC) Count 4.43 mill/uL (4.20-5.40); White Blood Cell (WBC) Count 5.2 thou/uL (4.8-10.8)
[2018-10-07 14:37] LABS: INR-International Normal Ratio 1.2; PTT 35.1 SEC (22.9-36.1); Prothrombin Time 14.9 SEC (12.0-14.7)
[2018-10-07 14:55] LABS: ALT (SGPT) 18 U/L (8-55); AST (SGOT) 20 U/L (5-34); Albumin 4.1 g/dL (3.4-4.8); Alkaline Phosphatase 58 U/L (40-150); Anion Gap 13 mmol/L (10-20); BUN (Urea Nitrogen) 26 mg/dL (9.8-20.1); Bilirubin, Total 0.7 mg/dL (0.2-1.2); Calc. Creatinine Clearance 0 mL/min (70-130); Calcium 9.7 mg/dL (7.8-10.44); Carbon Dioxide 21 mmol/L (23-31); Chloride 106 mmol/L (98-107); Estimated GFR-MDRD 45; Globulin 3.5 g/dL (2.4-3.5); Glucose 106 mg/dL (83-110); Potassium 4.8 mmol/L (3.5-5.1); Protein, Total 7.6 g/dL (6.0-8.3); Sodium 135 mmol/L (136-145)
== END 2018-10-07 05:13 | disposition home or self-care (01) ==
LOC: LABBT 05:12
PROVIDERS: ATTEND Internal Medicine Cardiovascular Disease
DX: Z01.812 Encounter for preprocedural laboratory examination (principal); R06.02 Shortness of breath
CPT/HCPCS: 80053; 85025; 85610; 85730

== ENCOUNTER 2018-10-11 06:48 | Day surgery (SDC) | payer MEDICARE, MEDICAID ==
[2018-10-07 13:40] VITALS: BMI 30.8
[2018-10-11 08:14] LABS: Cardiac Risk 3.3 (Less than 4.5)
[2018-10-11] MEDS ORDERED: Midazolam HCl 2 mg/2 ml Vial ONE (09:43)
[2018-10-11] MEDS ORDERED: Fentanyl 100 MCG/2 ML VIAL ONE (09:43)
[2018-10-11] MEDS ORDERED: Nitroglycerin 100MG/250ML BOT 250 ML ONE (09:44)
[2018-10-11] MEDS ORDERED: Heparin 10,000 UNITS/1 ML VIAL ONE (09:44)
[2018-10-11] MEDS ORDERED: Verapamil 5 MG/2 ML VIAL ONE (09:44)
[2018-10-11] MEDS ORDERED: Iopamidol 370 76% 100 ML VIAL ONE (10:27)
== END 2018-10-11 13:01 | disposition home or self-care (01) ==
LOC: CCL 06:48
PROVIDERS: ATTEND Internal Medicine Cardiovascular Disease
PROC: 4A023N7 Measurement of Cardiac Sampling and Pressure, Left Heart, Percutaneous Approach (ICD-10-PCS; principal; 2018-10-11)
PROC: B2111ZZ Fluoroscopy of Multiple Coronary Arteries using Low Osmolar Contrast (ICD-10-PCS; 2018-10-11)
DX: I25.10 Atherosclerotic heart disease of native coronary artery without angina pectoris (principal); I10 Essential (primary) hypertension; K21.9 Gastro-esophageal reflux disease without esophagitis; F41.9 Anxiety disorder, unspecified; G47.30 Sleep apnea, unspecified; F32.9 Major depressive disorder, single episode, unspecified; E10.8 Type 1 diabetes mellitus with unspecified complications; Z79.01 Long term (current) use of anticoagulants; Z79.82 Long term (current) use of aspirin; Z79.899 Other long term (current) drug therapy; Z88.1 Allergy status to other antibiotic agents; Z88.2 Allergy status to sulfonamides; Z88.8 Allergy status to other drugs, medicaments and biological substances; Z95.0 Presence of cardiac pacemaker
CPT/HCPCS: 80061; 93458; 99152; C1769; J1644; J2250; J3010; Q9967

== ENCOUNTER 2018-12-20 09:05 | Outpatient (CLI) | payer MEDICARE, MEDICAID ==
[~2018-12-20 09:05] MED LIST: EPINEPHrine 1 MG/ML AMP ONE; Iopamidol 300 61% 50 ML VIAL FS ONE; Lidocaine 1% PF 10 ML AMP ONE; Sodium Chloride 0.9% 50 ML BAG ONE
--- NOTE | 2018-12-20 11:31 | CT ---
EXAM: CT arthrogram right shoulder PROVIDED CLINICAL HISTORY: Shoulder pain COMPARISON: None FINDINGS: There is extravasation of contrast material from the glenohumeral joint into the subacromial subdelto id bursa in the region of the supraspinatus tendon compatible with full-thickness tearing. This appears to represent a fullwidth tear. The components of the rotator cuff appear otherwise intact. Ro tator cuff muscular volume appears preserved with the exception of mild muscular volume loss without fatty infiltration of the supraspinatus. The intra-articular long head biceps tendon appears prominently attenuated. Irregular appearance to t he superior labrum. Mild articular cartilage irregularity involving the central aspects of the glenoid inferiorly. The visualized right lung field appears free of suspicious opacity. No evidence for axillary lymph no de enlargement. Acromioclavicular joint appears unremarkable. IMPRESSION: 1. Evidence for full-thickness, probably fullwidth supraspinatus tendon tear. 2. High-grade partial tearing of the intra-articular long head biceps tendon. 3. Degenerative glenoid chondrosis and degenerative tearing involving the superior labrum.
--- NOTE | 2018-12-20 11:46 | RAD ---
Arthrogram right shoulder HISTORY: Internal derangement. Right shoulder pain. FINDINGS: After explaining the procedure and answering all questions, the anterior aspect of the [facility] t shoulder was prepped and draped in usual sterile fashion. Sterile technique, buffered local anesthesia, fluoroscopic guidance, and an anterior approach were used to carefully advance the tip of a 22-gauge spinal needle to the joint capsule at the level of the humeral head. A total volume of 10 cc liquid mixture containing 1% lidocaine, iodinated contrast, and saline was in stilled into the joint capsule under fluoroscopic control. Contrast immediately extended into the subacromial bursa. Needle was removed. Patient tolerated the procedure well and was transferred to CT in good condition. Fluoroscopy time 0.3 minutes. IMPRESSION: Technically successful right shoulder arthrogram. Full-thickness rotator cuff tear. CT is pending.
== END 2018-12-20 09:06 | disposition home or self-care (01) ==
LOC: RAD 09:05
PROVIDERS: ATTEND Orthopaedic Surgery
DX: M25.511 Pain in right shoulder (principal); M75.101 Unspecified rotator cuff tear or rupture of right shoulder, not specified as traumatic
CPT/HCPCS: 23350; J0171; J2001; Q9967

== ENCOUNTER 2019-01-21 13:11 | Outpatient (CLI) | payer MEDICARE, MEDICAID ==
--- NOTE | 2019-01-21 14:04 | RAD ---
XR Lumbar Spine 2 Or 3 View History: M 47.816 spondylosis of lumbar region Comparison: Radiograph 2015 Findings: Multilevel severe degenerative disc space height loss throughout the lumbar spine. There is abnormal interspinous narrowing sclerosis and subcortical cysts. No significant listhesis. No translation with flexion or extension. Severe vascular calcifications. Impression: No abnormal translation with flexion or extension.
== END 2019-01-21 13:12 | disposition home or self-care (01) ==
LOC: RAD 13:11
PROVIDERS: ATTEND Specialist
DX: M47.816 Spondylosis without myelopathy or radiculopathy, lumbar region (principal)
CPT/HCPCS: 72100

== ENCOUNTER 2019-01-29 06:28 | Emergency (ER) | payer MEDICARE, MEDICAID ==
[2019-01-29] MEDS ORDERED: Ondansetron PF 4 MG/2 ML Vial ONE (07:03)
[2019-01-29 07:08] LABS: #Eosinphils 0.1 thou/uL (0.0-0.7); #Lymphocytes 1.7 thou/uL (1.20-3.40); #Monocytes 0.4 thou/uL (0.11-0.59); %Basophils 0.7 % (0.0-1.0); %Eosinophils 1.9 % (0.0-10.0); %Lymphocytes 39.7 % (21.0-51.0); %Monocytes 9.7 % (0.0-10.0); %Neutrophils 48.1 % (42.0-75.0); Hemoglobin 13.2 g/dL (12.0-16.0); Mean Corpuscular HGB CONC 34.1 g/dL (32.0-36.0); Mean Corpuscular Hemoglobin 32.9 pg (27.0-31.0); Mean Corpuscular Volume 96.6 fL (78.0-98.0); Mean Platelet Volume 8.5 fL (7.4-10.4); Platelet Count 179 thou/uL (130-400); RBC Distribution Width 12.3 % (11.5-14.5); Red Blood Cell (RBC) Count 4.02 mill/uL (4.20-5.40); White Blood Cell (WBC) Count 4.2 thou/uL (4.8-10.8)
--- NOTE | 2019-01-29 07:35 | RAD ---
XR Chest 1 View Portable HISTORY: Chest pain COMPARISON: 08/08/2018 FINDINGS: The heart size is normal. The lungs are well expanded without focal areas of consolidation, pneumothorax or pleural effusions. Left-sided pacemaker device remains in place. Postop changes of left shoulder arthroplasty are again seen. IMPRESSION: No radiographic evidence of acute cardiopulmonary process.
[2019-01-29 07:38] LABS: ALT (SGPT) 21 U/L (8-55); AST (SGOT) 43 U/L (5-34); Alkaline Phosphatase 44 U/L (40-150); Anion Gap 14 mmol/L (10-20); BUN (Urea Nitrogen) 25 mg/dL (9.8-20.1); Bilirubin, Total 0.9 mg/dL (0.2-1.2); Calc. Creatinine Clearance 0 mL/min (70-130); Calcium 9.7 mg/dL (7.8-10.44); Carbon Dioxide 23 mmol/L (23-31); Chloride 104 mmol/L (98-107); Estimated GFR-MDRD 52; Globulin 3.5 g/dL (2.4-3.5); Glucose 110 mg/dL (83-110); Potassium 4.4 mmol/L (3.5-5.1); Protein, Total 7.5 g/dL (6.0-8.3); Sodium 137 mmol/L (136-145)
--- NOTE | 2019-01-29 08:35 | CT ---
CT ABDOMEN AND PELVIS WITH IV CONTRAST: HISTORY: Abdominal pain, nausea and vomiting COMPARISON: None FINDINGS: There is a calcified granuloma in the right lung base. Calcified granulomas are also seen in the live r and spleen. The patient is post cholecystectomy with intra and extrahepatic ductal dilatation likely due to reservoir effect. The common bile duct measures 1 cm in the pancreatic head. The pancre as and adrenal glands appear normal. Bilateral renal cysts are present. No free air, free fluid or lymphadenopathy seen in the abdomen or pelvis. The small bowel loops are n ot abnormally dilated. There is colonic diverticulosis without evidence of diverticulitis. Vascular calcifications are present without evidence of aneurysmal dilatation of the abdominal aorta. There ar e degenerative changes in the spine. The patient is post hysterectomy. A fat-containing left inguinal hernia is present. IMPRESSION: 1. Old granulomatous disease 2. Colonic diverticulosis without evidence of diverticulitis. 3. Bilateral renal cysts
[2019-01-29 08:53] LABS: Bacteria/HPF None Seen HPF (None Seen); Bilirubin Negative (Negative); Blood, Urine Negative (Negative); Clarity Clear (Clear); Glucose, Urine (Dipstick) Normal (Negative); Leukocyte 500 Leu/uL (Negative); Nitrite Negative (Negative); Protein, Urine (Dipstick) Negative (Neg-Trace); RBC/HPF 0-3 HPF (0-3); Squamous Epithelial 0-3 HPF (0-3); Transitional Epithelial 0-3 HPF (None Seen); Urobilinogen Normal mg/dL (Less than 2)
[2019-01-29] MEDS ORDERED: Iopamidol 370 76% 100 ML VIAL ONE (09:35)
== END 2019-01-29 10:18 | disposition home or self-care (01) ==
LOC: ERS 06:28
DX: N39.0 Urinary tract infection, site not specified (principal); R11.2 Nausea with vomiting, unspecified; I10 Essential (primary) hypertension; F41.9 Anxiety disorder, unspecified; Z79.01 Long term (current) use of anticoagulants; Z79.899 Other long term (current) drug therapy; Z86.73 Personal history of transient ischemic attack (TIA), and cerebral infarction without residual deficits
CPT/HCPCS: 71045; 74177; 80053; 81003; 81015; 83690; 84484; 85025; 87086; 93005; 96361; 96374; J2405; Q9967

== ENCOUNTER 2019-05-23 07:01 | Day surgery (SDC) | payer MEDICARE, MEDICAID ==
[2019-05-22 13:31] VITALS: BMI 27.2
[2019-05-23 08:03] VITALS: BP 132/58; TEMP 97
--- NOTE | 2019-05-23 09:41 | RAD ---
LUMBAR MYELOGRAM: INDICATION: Lumbar spondylosis TECHNIQUE: Informed consent was obtained. Preprocedure stave cutter images were performed for guidance purposes. Site overlying the right L4-5interlaminar space was marked. The site was prepped and draped in the [facility] sterile fashion. Buffered 1% lidocaine was administered to the overlying subcutaneous tissues. Under fluoroscopic guidance, a 22-gauge spinal needle was guided down into the thecal sac. There was spontaneous return of normal appearing CSF fluid. Following this 10 cc of Isovue-200 M was injected within the thecal sac. There was fluoroscopic visua lization of internal nerve roots confirming intrathecal location of needle placement. The inner stylette was replaced within the needle and the needle removed. Pressure was held at the bi opsy site until hemostasis was obtained. The biopsy site was then cleansed and bandage. The patient tolerated the injection without difficulty. Total fluoroscopic time was 0.4 minutes. Total exposure was 599.3microGy/cm2. FINDINGS: Severe multilevel spondylosis with prominent levoscoliosis at L3-4 IMPRESSION: Successful lumbar myelogram
--- NOTE | 2019-05-23 09:54 | CT ---
CT LUMBAR MYELOGRAM: INDICATIONS: Lumbar spondylosis COMPARISON: CT lumbar myelogram dated January 29, 2015 TECHNIQUE: Multiple CT images were obtained of the lumbar spine following the intrathecal administration of an I sovue-200 Msolution. Please see the lumbar myelogram for details concerning the injection technique. Axial, coronal, and sagittal reformatted images were constructed from the raw data. FINDINGS: Visualized retroperitoneal and paravertebral soft tissues: There is a stable exophytic right renal cy st extending off the posterior mid right kidney measuring 2 cm. There are moderate vascular calcifications seen involving the visualized vasculature. There is scattered colonic diverticula invo lving the visualized colon. Spinal alignment: There is stable prominent dextroscoliosis centered at L3-4. Spinal instrumentation or postsurgical change: None At L5-S1, there is a broad-based disc osteophyte complex with loss of disc space height and facet hyp ertrophy inducing stable moderate to severe right and worsening severe left neural foraminal narrowing.. Component of vacuum disc phenomenon is seen within portions of the disc herniation protru ding into the left L5-S1 neural foramina. At L4-5, there is a broad-based disc osteophyte complex with facet hypertrophy inducing stable mild c entral canal narrowing with stable moderate to severe central canal narrowing. At L3-4, there is a broad-based disc osteophyte complex with severe left and moderate right facet taylor nt degenerative change inducing moderate to severe left and mild right neural foraminal narrowing which is stable to the prior exam. At L2-3, there is a broad-based disc osteophyte complex with facet hypertrophy inducing stable modera te central canal narrowing with mild right and moderate left neural foraminal narrowing. This appears stable to the prior exam. At L1-L2, there is a broad-based disc osteophyte complex with facet hypertrophy inducing mild central canal narrowing with moderate to severe right and [id number]-[id number] left neural foraminal narrowing. This is stable to the prior exam. At T12-L1, there is a broad-based disc osteophyte complex with facet hypertrophy inducing mild to mod erate right and mild left neural foraminal narrowing. This is stable to the prior exam. IMPRESSION: 1. Worsening left neural foraminal narrowing at L5-S1 due to broad-based disc osteophyte complex, lo ss of disc space height and facet hypertrophy. 2. Stable multilevel neural foraminal narrowing and central canal narrowing at T12-L1 through L4-5. 3. Stable right renal cyst and colonic diverticulosis.
[2019-05-23] MEDS ORDERED: Iopamidol 200 41% 50 ML VIAL FS ONE (11:45)
[2019-05-23] MEDS ORDERED: FLU VACC TS2019-20(65YR UP)/PF 180 MCG/0.5 ML SYRINGE IM ONE (13:45)
== END 2019-05-23 10:00 | disposition home or self-care (01) ==
LOC: RAD 07:01
PROVIDERS: ATTEND Nurse Practitioner Family
DX: M47.816 Spondylosis without myelopathy or radiculopathy, lumbar region (principal); M25.78 Osteophyte, vertebrae; N28.1 Cyst of kidney, acquired; M51.27 Other intervertebral disc displacement, lumbosacral region; K57.30 Diverticulosis of large intestine without perforation or abscess without bleeding; Z79.01 Long term (current) use of anticoagulants; Z79.1 Long term (current) use of non-steroidal anti-inflammatories (NSAID); Z79.82 Long term (current) use of aspirin; Z79.891 Long term (current) use of opiate analgesic; Z79.899 Other long term (current) drug therapy; Z88.1 Allergy status to other antibiotic agents; Z88.2 Allergy status to sulfonamides; Z88.8 Allergy status to other drugs, medicaments and biological substances
CPT/HCPCS: 62304; 72132; 90471; 90662; G0008

== ENCOUNTER 2019-07-02 15:59 | Outpatient (CLI) | payer MEDICARE, MEDICAID ==
[2019-07-02 18:26] LABS: Hemoglobin 13.8 g/dL (12.0-16.0); Mean Corpuscular HGB CONC 31.7 g/dL (32.0-36.0); Mean Corpuscular Hemoglobin 30.9 pg (27.0-31.0); Mean Corpuscular Volume 97.6 fL (78.0-98.0); Mean Platelet Volume 8.9 fL (7.4-10.4); Platelet Count 185 thou/uL (130-400); RBC Distribution Width 11.8 % (11.5-14.5); Red Blood Cell (RBC) Count 4.47 mill/uL (4.20-5.40); White Blood Cell (WBC) Count 4.3 thou/uL (4.8-10.8)
[2019-07-02 19:02] LABS: Anion Gap 13 mmol/L (10-20); BUN (Urea Nitrogen) 27 mg/dL (9.8-20.1); Calc. Creatinine Clearance 0 mL/min (70-130); Calcium 9.8 mg/dL (7.8-10.44); Carbon Dioxide 24 mmol/L (23-31); Chloride 104 mmol/L (98-107); Estimated GFR-MDRD 50; Glucose 82 mg/dL (83-110); Potassium 4.5 mmol/L (3.5-5.1); Sodium 136 mmol/L (136-145)
== END 2019-07-02 16:00 | disposition home or self-care (01) ==
LOC: LABBT 15:59
PROVIDERS: ATTEND Orthopaedic Surgery
DX: Z01.818 Encounter for other preprocedural examination (principal); M75.101 Unspecified rotator cuff tear or rupture of right shoulder, not specified as traumatic; S46.119A Strain of muscle, fascia and tendon of long head of biceps, unspecified arm, initial encounter; S43.491A Other sprain of right shoulder joint, initial encounter
CPT/HCPCS: 80048; 85027; 93005; 93010

== ENCOUNTER 2019-07-03 05:53 | Day surgery (SDC) | payer MEDICARE, MEDICAID ==
[2019-07-02 09:03] VITALS: BMI 28.1
[2019-07-03] MEDS ORDERED: Fentanyl 100 MCG/2 ML VIAL ONE ×2 (06:43→06:46)
[2019-07-03] MEDS ORDERED: Midazolam HCl 2 mg/2 ml Vial ONE (06:45)
[2019-07-03] MEDS ORDERED: EPINEPHrine 1 MG/ML AMP ONE (06:52)
[2019-07-03] MEDS ORDERED: Bupivacaine 0.25% HCL 30 ML VIAL ONE (06:52)
[2019-07-03] MEDS ORDERED: Promethazine HCl 25 MG/ML VIAL IM PRN (07:48)
[2019-07-03] MEDS ORDERED: Ketorolac Tromethamine 30 MG/ML VIAL IVP PRN (07:48)
[2019-07-03] MEDS ORDERED: traMADol HCl 50 MG TAB PO PRN ×2 (07:48)
[2019-07-03] MEDS ORDERED: Ondansetron PF 4 MG/2 ML Vial IVP PRN (07:48)
[2019-07-03] MEDS ORDERED: HYDROcodone/Acetaminophen 10/325 mg Tablet PO PRN ×2 (07:48)
[2019-07-03] MEDS ORDERED: Acetaminophen 325 MG TAB PO PRN (07:48)
[2019-07-03] MEDS ORDERED: Zolpidem Tartrate 5 MG TAB PO PRN (07:48)
[2019-07-03] MEDS ORDERED: Ropivacaine 0.2% 550 ML 550 ML NERVE BLCK SCH (07:48)
[2019-07-03] MEDS ORDERED: Fentanyl 100 MCG/2 ML VIAL IV PRN (07:49)
[2019-07-03] MEDS ORDERED: PHENYLEPHRINE-NS 100 MCG/ML 10 ML SYRINGE ONE (09:34)
[2019-07-03] MEDS ORDERED: ePHEDrine/0.9% NaCl/PF SYRINGE 50 mg/10 ml ONE (09:34)
[2019-07-03] MEDS ORDERED: Ondansetron PF 4 MG/2 ML Vial ONE (09:34)
[2019-07-03] MEDS ORDERED: Glycopyrrolate 0.2 MG/ML 5 ML SYRINGE ONE (09:34)
[2019-07-03] MEDS ORDERED: Rocuronium Bromide 10 MG/ML (10ML VIAL) ONE (09:34)
[2019-07-03] MEDS ORDERED: PROPOFOL 200 MG/20 ML VIAL ONE (09:34)
[2019-07-03] MEDS ORDERED: Ropivacaine 0.5% HCl/PF (150 MG/30 ML VIAL) ONE (09:34)
[2019-07-03] MEDS ORDERED: Ropivacaine 0.2% HCl/PF (40 MG/20 ML VIAL) ONE (09:34)
[2019-07-03] MEDS ORDERED: Dexamethasone 20 MG/5 ML VIAL ONE (09:34)
[2019-07-03] MEDS ORDERED: Lidocaine 1% PF 5 ML VIAL ONE (09:34)
[2019-07-03] MEDS ORDERED: Bupivacaine HCl 0.5%/Epinephrine 1:200,000/PF 30 ml Vial ONE (09:35)
--- NOTE | 2019-07-03 11:06 | OP ---
DATE OF PROCEDURE: 07/03/2019 PREOPERATIVE DIAGNOSES: Large rotator cuff tear of the right shoulder with biceps tendinitis and superior labral tear. 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 PROCEDURES PERFORMED: Arthroscopy of the right shoulder with biceps tenotomy, repair of the superior labrum, and then repair of large rotator cuff tear, both arthroscopically and open. ANESTHESIA: General. TECHNIQUE: The patient was given a supraclavicular block, performed prior to surgery. She was given preoperative IV antibiotics and taken operating room, placed in supine position. Satisfactory general anesthesia was performed. The patient was then placed in the left lateral decubitus position. All bony prominences were well padded. The right upper extremity was placed in 15 pounds of traction. The shoulder joint was then scoped through the usual posterior, anterior, lateral, and superolateral portals. Upon entering the shoulder joint, the patient had significant amount of synovitis. Partial synovectomy was performed. There was significant chondral thinning consistent with moderate arthritis. The biceps tendon was very inflamed and a biceps tenotomy was performed using a 90-degree ArthroWand and a shaver. The superior labrum which was torn was then repaired using 2.9 Arthrex anchors with #2 FiberWire. Two anchors were utilized, which provided good repair of the superior labrum. The subacromial space was entered and the patient had significant amount of synovitis and bursitis. A great deal of time was used to perform a partial synovectomy and bursectomy. The rotator cuff was torn. The entire supraspinatus and portion of the infraspinatus were torn. Initially, the repair was begun using a 4.75 PushLock anchors with the FiberTape. Because of the amount of bleeding and synovitis, the shoulder was then opened and the repair was finished using two anchors medially and two anchors laterally using the FiberTape, and additional #2 FiberWire was used to perform additional repair of the rotator cuff. This provided good repair and good position. The wounds were irrigated. The fascia over the deltoid muscle was closed using 0 Vicryl. Fat and subcutaneous tissue were closed using 0 Vicryl, and skin was closed with 3-0 Rapide. Sterile dressing was applied. The patient was taken out of traction. She was awakened, extubated, and transferred to recovery room in stable condition. ESTIMATED BLOOD LOSS: Minimal. COMPLICATIONS: None. Job ID: [id number]
[2019-07-03] MEDS ORDERED: Ketorolac Tromethamine 30 MG/ML VIAL ONE (13:25)
== END 2019-07-03 14:04 | disposition home or self-care (01) ==
LOC: SDC 05:53
PROVIDERS: ATTEND Orthopaedic Surgery
PROC: 0MM14ZZ Reattachment of Right Shoulder Bursa and Ligament, Percutaneous Endoscopic Approach (ICD-10-PCS; principal; 2019-07-03)
PROC: 0RBJ4ZZ Excision of Right Shoulder Joint, Percutaneous Endoscopic Approach (ICD-10-PCS; 2019-07-03)
PROC: 0LM10ZZ Reattachment of Right Shoulder Tendon, Open Approach (ICD-10-PCS; 2019-07-03)
PROC: 3E0T3BZ Introduction of Anesthetic Agent into Peripheral Nerves and Plexi, Percutaneous Approach (ICD-10-PCS; 2019-07-03)
DX: M75.121 Complete rotator cuff tear or rupture of right shoulder, not specified as traumatic (principal); S43.491A Other sprain of right shoulder joint, initial encounter; M75.21 Bicipital tendinitis, right shoulder; M19.011 Primary osteoarthritis, right shoulder; G89.18 Other acute postprocedural pain; I10 Essential (primary) hypertension; G89.29 Other chronic pain; M54.9 Dorsalgia, unspecified; M19.90 Unspecified osteoarthritis, unspecified site; Z79.01 Long term (current) use of anticoagulants; Z79.899 Other long term (current) drug therapy; Z88.1 Allergy status to other antibiotic agents; Z88.2 Allergy status to sulfonamides; Z88.8 Allergy status to other drugs, medicaments and biological substances; Z95.0 Presence of cardiac pacemaker
CPT/HCPCS: 23412; 29807; 29820; 64416; A4306; C1713; J0171; J0670; J0690; J1100; J1885; J2001; J2250; J2405; J2704; J2795; J3010; S0020

== ENCOUNTER 2019-08-05 09:51 | Outpatient (CLI) | payer MEDICARE, MEDICAID ==
--- NOTE | 2019-08-05 11:12 | CT ---
CT ABDOMEN AND PELVIS WITH ORAL AND IV CONTRAST: Date: 08/05/2019 HISTORY: Generalized abdominal pain. COMPARISON: 01/29/2019. FINDINGS: Calcified granuloma in the right lung base is again seen. Multiple calcified granulomas in the spleen are redemonstrated. The patient is post cholecystectomy with intra and extrahepatic biliary ductal d ilatation likely due to reservoir effect. The common duct is stable, measuring 1.0 cm in diameter in the pancreatic head. The pancreas and adrenal glands appear normal. Bilateral renal cysts are again s een. The small bowel loops are not abnormally dilated. There is colonic diverticulosis without evidence of diverticulitis. There are vascular calcifications without evidence of aneurysmal dilatation of the a bdominal aorta. The patient is post hysterectomy. There are degenerative changes with scoliosis of th e spine. A fat-containing left inguinal hernia is again seen. IMPRESSION: 1. Stable exam. No acute process. 2. Colonic diverticulosis without diverticulitis. 3. Bilateral renal cysts. 4. Old granulomatous disease. POS: [facility]
[2019-08-05] MEDS ORDERED: Iopamidol-370 76% 500 ML 1 ML ONE (13:58)
== END 2019-08-05 09:52 | disposition home or self-care (01) ==
LOC: BICCT 09:51
PROVIDERS: ATTEND Family Medicine
DX: R10.84 Generalized abdominal pain (principal); N28.1 Cyst of kidney, acquired; K57.30 Diverticulosis of large intestine without perforation or abscess without bleeding; D71 Functional disorders of polymorphonuclear neutrophils
CPT/HCPCS: 74177; Q9967

== ENCOUNTER 2020-12-23 09:35 | Outpatient (CLI) | payer MEDICARE, MEDICAID | END 2020-12-23 09:36 | disposition home or self-care (01) | LOC: BICULT 09:35 | PROVIDERS: ATTEND Internal Medicine Nephrology | DX: N18.30 Chronic kidney disease, stage 3 unspecified (principal); N28.1 Cyst of kidney, acquired | CPT/HCPCS: 76770 ==

== ENCOUNTER 2021-02-09 15:28 | Emergency (ER) | payer MEDICARE, MEDICAID ==
[2021-02-09 16:30] LABS: Hemoglobin 9.3 g/dL (12.0-16.0); Mean Corpuscular HGB CONC 31.6 g/dL (32.0-36.0); Mean Corpuscular Hemoglobin 27.2 pg (27.0-31.0); Mean Corpuscular Volume 86.1 fL (78.0-98.0); Mean Platelet Volume 8.9 fL (7.4-10.4); Platelet Count 216 thou/uL (130-400); RBC Distribution Width 14.3 % (11.5-14.5); Red Blood Cell (RBC) Count 3.42 mill/uL (4.20-5.40); White Blood Cell (WBC) Count 4.4 thou/uL (4.8-10.8)
[2021-02-09 16:53] LABS: Eosinophils 3 % (0-10); Lymphocytes 27 % (21-51); MDiff Complete? YES; Monocytes 14 % (0-10); Neutrophil 56 % (42-75); Platelet Morphology Comment Appears Adequate; Polychromasia SLIGHT = 2-3 cells (100X) (0-2/hpf)
[2021-02-09 16:56] LABS: ALT (SGPT) 8 U/L (8-55); AST (SGOT) 18 U/L (5-34); Albumin 3.6 g/dL (3.4-4.8); Alkaline Phosphatase 61 U/L (40-110); Anion Gap 11 mmol/L (10-20); BUN (Urea Nitrogen) 16 mg/dL (9.8-20.1); Bilirubin, Total 0.5 mg/dL (0.2-1.2); Calc. Creatinine Clearance 0 mL/min (70-130); Carbon Dioxide 27 mmol/L (23-31); Chloride 104 mmol/L (98-107); Globulin 3.6 g/dL (2.4-3.5); Glucose 108 mg/dL (83-110); Potassium 3.6 mmol/L (3.5-5.1); Protein, Total 7.2 g/dL (5.8-8.1); Sodium 138 mmol/L (136-145)
[2021-02-09 18:34] LABS: Bilirubin Negative (Negative); Blood, Urine Negative (Negative); Clarity Clear (Clear); Glucose, Urine (Dipstick) Normal (Negative); Ketone, Urine Negative (Negative); Leukocyte Negative Leu/uL (Negative); Nitrite Negative (Negative); Protein, Urine (Dipstick) Negative (Neg-Trace); Specific Gravity, Urine 1.015 (1.002-1.036); Urobilinogen Normal mg/dL (Less than 2)
== END 2021-02-09 20:37 | disposition home or self-care (01) ==
LOC: ERS 15:28
DX: R06.02 Shortness of breath (principal); R07.9 Chest pain, unspecified; R53.81 Other malaise; R53.83 Other fatigue; R35.0 Frequency of micturition; I10 Essential (primary) hypertension; Z86.73 Personal history of transient ischemic attack (TIA), and cerebral infarction without residual deficits; Z95.0 Presence of cardiac pacemaker; Z79.01 Long term (current) use of anticoagulants; Z79.899 Other long term (current) drug therapy
CPT/HCPCS: 36415; 51701; 71045; 80053; 81003; 83880; 84484; 85025; 87086; 93005; 94760

== ENCOUNTER 2021-03-15 13:29 | Inpatient (IN) | payer MEDICARE, MEDICAID ==
[2021-03-15] MEDS ORDERED: Aspirin Chewable 81 MG TAB ONE ×2 (13:48→13:49)
[2021-03-15] MEDS ORDERED: Nitroglycerin 2% Ointment 1 INCH/1 GM Packet ONE (13:49)
[2021-03-15 14:16] LABS: #Eosinphils 0.2 thou/uL (0.0-0.7); #Lymphocytes 1.8 thou/uL (1.20-3.40); #Monocytes 0.5 thou/uL (0.11-0.59); %Basophils 0.3 % (0.0-1.0); %Eosinophils 4.9 % (0.0-10.0); %Lymphocytes 38.8 % (21.0-51.0); %Neutrophils 45.1 % (42.0-75.0); Hemoglobin 8.3 g/dL (12.0-16.0); Mean Corpuscular HGB CONC 31.7 g/dL (32.0-36.0); Mean Corpuscular Hemoglobin 25.5 pg (27.0-31.0); Mean Corpuscular Volume 80.5 fL (78.0-98.0); Mean Platelet Volume 9.7 fL (7.4-10.4); Platelet Count 204 thou/uL (130-400); RBC Distribution Width 15.9 % (11.5-14.5); Red Blood Cell (RBC) Count 3.24 mill/uL (4.20-5.40); White Blood Cell (WBC) Count 4.5 thou/uL (4.8-10.8)
[2021-03-15] MEDS ORDERED: Pantoprazole 40 MG VIAL ONE (14:30)
[2021-03-15 14:31] LABS: ALT (SGPT) 11 U/L (8-55); AST (SGOT) 18 U/L (5-34); Albumin 3.6 g/dL (3.4-4.8); Alkaline Phosphatase 65 U/L (40-110); Anion Gap 13 mmol/L (10-20); BUN (Urea Nitrogen) 12 mg/dL (9.8-20.1); Bilirubin, Total 0.6 mg/dL (0.2-1.2); Calc. Creatinine Clearance 0 mL/min (70-130); Calcium 8.7 mg/dL (7.8-10.44); Carbon Dioxide 28 mmol/L (23-31); Chloride 101 mmol/L (98-107); Globulin 3.5 g/dL (2.4-3.5); Glucose 141 mg/dL (83-110); Potassium 3.8 mmol/L (3.5-5.1); Protein, Total 7.1 g/dL (5.8-8.1); Sodium 138 mmol/L (136-145)
[2021-03-15] MEDS ORDERED: Ondansetron ODT 4 MG TAB PO PRN (17:43)
[2021-03-15] MEDS ORDERED: Ondansetron PF 4 MG/2 ML Vial IVP PRN (17:43)
[2021-03-15 18:18] LABS: Troponin I Less than 0.010 ng/mL (< 0.028)
[2021-03-15 18:56] LABS: Hemoglobin 8.1 g/dL (12.0-16.0); Platelet Count 201 thou/uL (130-400)
[2021-03-15] MEDS ORDERED: GoLYTELY 4,000 ml Bottle PO SCH (19:30)
[2021-03-15 19:53] VITALS: BMI 28.1
[2021-03-15 20:42] LABS: Troponin I Less than 0.010 ng/mL (< 0.028)
[2021-03-15] MEDS: Pantoprazole 40 MG VIAL IVP SCH (21:27)
[2021-03-15] MEDS: Nitroglycerin 2% Ointment 1 INCH/1 GM Packet TOP SCH (21:35)
[2021-03-15] MEDS: Acetaminophen 325 MG TAB PO PRN (21:36)
[2021-03-15] MEDS ORDERED: HYDROcodone/Acetaminophen 5/325 mg Tablet PO SCH (23:03)
[2021-03-16 01:20] LABS: Hemoglobin 8.5 g/dL (12.0-16.0); Platelet Count 227 thou/uL (130-400)
[2021-03-16 05:15] LABS: #Eosinphils 0.2 thou/uL (0.0-0.7); #Lymphocytes 2.1 thou/uL (1.20-3.40); #Monocytes 0.6 thou/uL (0.11-0.59); %Basophils 0.3 % (0.0-1.0); %Eosinophils 4.4 % (0.0-10.0); %Lymphocytes 42.1 % (21.0-51.0); %Monocytes 12.6 % (0.0-10.0); %Neutrophils 40.7 % (42.0-75.0); Hemoglobin 7.9 g/dL (12.0-16.0); Mean Corpuscular HGB CONC 30.5 g/dL (32.0-36.0); Mean Corpuscular Hemoglobin 24.2 pg (27.0-31.0); Mean Corpuscular Volume 79.3 fL (78.0-98.0); Mean Platelet Volume 9.7 fL (7.4-10.4); Platelet Count 193 thou/uL (130-400); RBC Distribution Width 15.9 % (11.5-14.5); Red Blood Cell (RBC) Count 3.26 mill/uL (4.20-5.40)
[2021-03-16 05:24] LABS: Anion Gap 14 mmol/L (10-20); BUN (Urea Nitrogen) 11 mg/dL (9.8-20.1); Calc. Creatinine Clearance 68 mL/min (70-130); Calcium 8.7 mg/dL (7.8-10.44); Carbon Dioxide 26 mmol/L (23-31); Chloride 102 mmol/L (98-107); Glucose 102 mg/dL (83-110); Potassium 3.5 mmol/L (3.5-5.1); Sodium 138 mmol/L (136-145)
[2021-03-16] MEDS: Nitroglycerin 2% Ointment 1 INCH/1 GM Packet TOP SCH ×3 (05:47→21:03)
[2021-03-16 07:28] LABS: SARS-CoV-2 NAA Rapid Test Not Detected (NotDetected)
[2021-03-16] MEDS ORDERED: Fentanyl 100 MCG/2 ML VIAL ONE (10:35)
[2021-03-16] MEDS ORDERED: PROPOFOL 200 MG/20 ML VIAL ONE (10:38)
[2021-03-16] MEDS ORDERED: PACU-Morphine 4MG/ML VIAL SLOW IVP PRN (10:57)
[2021-03-16] MEDS ORDERED: Promethazine HCl 25 MG/ML VIAL IM PRN (10:57)
[2021-03-16] MEDS ORDERED: Ondansetron HCl/PF 4 MG/2 ML Vial IVP PRN (10:57)
[2021-03-16] MEDS ORDERED: Promethazine HCl 25 MG/ML VIAL IVPB PRN (10:57)
[2021-03-16] MEDS ORDERED: Loperamide HCl 2 MG CAP PO PRN (12:40)
[2021-03-16] MEDS ORDERED: Iopamidol 370 76% 100 ML VIAL ONE (14:47)
[2021-03-16] MEDS: ALPRAZolam 0.5 MG TAB PO PRN (15:49)
[2021-03-16] MEDS: Acetaminophen 325 MG TAB PO PRN ×2 (15:49→23:10)
[2021-03-16] MEDS: Pantoprazole 40 MG VIAL IVP SCH ×2 (15:49→21:03)
[2021-03-16] MEDS ORDERED: Atorvastatin Calcium 10 MG TAB PO SCH (21:00)
[2021-03-17] MEDS: ALPRAZolam 0.5 MG TAB PO PRN (00:03)
[2021-03-17 04:51] LABS: #Eosinphils 0.2 thou/uL (0.0-0.7); #Lymphocytes 1.8 thou/uL (1.20-3.40); #Monocytes 0.7 thou/uL (0.11-0.59); #Neutrophils 2.6 thou/uL (1.40-6.50); %Basophils 0.7 % (0.0-1.0); %Eosinophils 3.6 % (0.0-10.0); %Lymphocytes 34.2 % (21.0-51.0); %Monocytes 12.6 % (0.0-10.0); Hemoglobin 7.8 g/dL (12.0-16.0); Mean Corpuscular HGB CONC 30.1 g/dL (32.0-36.0); Mean Corpuscular Hemoglobin 24.2 pg (27.0-31.0); Mean Corpuscular Volume 80.5 fL (78.0-98.0); Mean Platelet Volume 9.5 fL (7.4-10.4); Platelet Count 204 thou/uL (130-400); Red Blood Cell (RBC) Count 3.22 mill/uL (4.20-5.40); White Blood Cell (WBC) Count 5.2 thou/uL (4.8-10.8)
[2021-03-17 05:09] LABS: Anion Gap 12 mmol/L (10-20); BUN (Urea Nitrogen) 7 mg/dL (9.8-20.1); Calc. Creatinine Clearance 70 mL/min (70-130); Calcium 8.5 mg/dL (7.8-10.44); Carbon Dioxide 25 mmol/L (23-31); Chloride 105 mmol/L (98-107); Glucose 96 mg/dL (83-110); Potassium 3.5 mmol/L (3.5-5.1); Sodium 138 mmol/L (136-145)
[2021-03-17] MEDS: Nitroglycerin 2% Ointment 1 INCH/1 GM Packet TOP SCH ×3 (05:41→22:41)
[2021-03-17] MEDS ORDERED: Furosemide 40 MG TAB PO SCH (09:00)
[2021-03-17] MEDS ORDERED: Escitalopram Oxalate 10 mg Tablet PO SCH (09:00)
[2021-03-17] MEDS ORDERED: cefOXitin Sodium/Dextrose 2 GM/50 ML BAG ONE (12:39)
[2021-03-17] MEDS ORDERED: Fentanyl 100 MCG/2 ML VIAL ONE ×3 (13:02→15:28)
[2021-03-17] MEDS ORDERED: SUGAMMADEX SODIUM 200 MG/2 ML VIAL ONE (13:08)
[2021-03-17] MEDS ORDERED: Rocuronium Bromide 10 MG/ML (10ML VIAL) ONE (13:32)
[2021-03-17] MEDS ORDERED: Bupivacaine HCl 0.5%/Epinephrine 1:200,000/PF 30 ml Vial ONE (13:32)
[2021-03-17] MEDS ORDERED: PHENYLEPHRINE-NS 100 MCG/ML 10 ML SYRINGE ONE (13:32)
[2021-03-17] MEDS ORDERED: Lidocaine 1% PF 5 ML VIAL ONE (13:32)
[2021-03-17] MEDS ORDERED: Ondansetron PF 4 MG/2 ML Vial ONE (13:32)
[2021-03-17] MEDS ORDERED: PROPOFOL 200 MG/20 ML VIAL ONE (13:32)
[2021-03-17] MEDS ORDERED: Dexamethasone 20 MG/5 ML VIAL ONE (13:32)
[2021-03-17] MEDS ORDERED: Glycopyrrolate 0.2 MG/ML 5 ML SYRINGE ONE (13:32)
[2021-03-17] MEDS ORDERED: Ondansetron HCl/PF 4 MG/2 ML Vial IVP PRN (15:18)
[2021-03-17] MEDS ORDERED: Promethazine HCl 25 MG/ML VIAL IM PRN (15:18)
[2021-03-17] MEDS ORDERED: Promethazine HCl 25 MG/ML VIAL IVPB PRN (15:18)
[2021-03-17] MEDS ORDERED: HYDROmorphone 0.5 MG/0.5 ML SYRINGE ONE (15:28)
[2021-03-17] MEDS ORDERED: D5 1/2 NS w/20 mEq KCL 1,000 ML ONE (15:40)
[2021-03-17] MEDS ORDERED: hydrALAZINE 20 MG/ML VIAL SLOW IVP PRN (16:30)
[2021-03-17] MEDS: Amlodipine 5 MG TAB PO SCH (18:10)
[2021-03-17] MEDS: Carvedilol 25 MG TAB PO SCH (18:10)
[2021-03-17] MEDS: Lisinopril 20 MG TAB PO SCH (18:10)
[2021-03-17] MEDS: traMADol HCl 50 MG TAB PO PRN (18:11)
[2021-03-17] MEDS: D5 1/2 NS w/20 mEq KCL 1,000 ML IV SCH (18:13)
[2021-03-17] MEDS: Pantoprazole 40 MG VIAL IVP SCH (18:15)
[2021-03-17] MEDS: Famotidine 20 MG TAB PO SCH (21:03)
[2021-03-17] MEDS: Famotidine/PF 20 mg/2ml Vial SLOW IVP SCH (21:03)
[2021-03-17] MEDS: Fentanyl 100 MCG/2 ML VIAL SLOW IVP PRN (21:04)
[2021-03-17] MEDS: cefOXitin 2 GM in Sodium Chloride 0.9% 100 ML IVPB SCH (22:40)
[2021-03-18] MEDS: Fentanyl 100 MCG/2 ML VIAL SLOW IVP PRN ×7 (00:11→23:38)
[2021-03-18] MEDS: traMADol HCl 50 MG TAB PO PRN ×2 (03:27→16:13)
[2021-03-18] MEDS: cefOXitin 2 GM in Sodium Chloride 0.9% 100 ML IVPB SCH (05:58)
[2021-03-18] MEDS: Nitroglycerin 2% Ointment 1 INCH/1 GM Packet TOP SCH ×3 (05:59→23:33)
[2021-03-18] MEDS: D5 1/2 NS w/20 mEq KCL 1,000 ML IV SCH ×4 (06:09→21:16)
[2021-03-18 06:39] LABS: #Lymphocytes 1.1 thou/uL (1.20-3.40); #Monocytes 1.1 thou/uL (0.11-0.59); #Neutrophils 12.2 thou/uL (1.40-6.50); %Basophils 0.1 % (0.0-1.0); %Lymphocytes 7.4 % (21.0-51.0); %Monocytes 7.5 % (0.0-10.0); Mean Corpuscular HGB CONC 30.7 g/dL (32.0-36.0); Mean Corpuscular Hemoglobin 24.5 pg (27.0-31.0); Mean Corpuscular Volume 79.8 fL (78.0-98.0); Mean Platelet Volume 9.2 fL (7.4-10.4); Platelet Count 208 thou/uL (130-400); RBC Distribution Width 15.9 % (11.5-14.5); Red Blood Cell (RBC) Count 3.27 mill/uL (4.20-5.40); White Blood Cell (WBC) Count 14.3 thou/uL (4.8-10.8)
[2021-03-18 06:48] LABS: Anion Gap 13 mmol/L (10-20); BUN (Urea Nitrogen) 10 mg/dL (9.8-20.1); Calc. Creatinine Clearance 67 mL/min (70-130); Calcium 8.4 mg/dL (7.8-10.44); Carbon Dioxide 23 mmol/L (23-31); Chloride 104 mmol/L (98-107); Glucose 193 mg/dL (83-110); Potassium 4.2 mmol/L (3.5-5.1); Sodium 136 mmol/L (136-145)
[2021-03-18] MEDS: Lisinopril 20 MG TAB PO SCH (08:48)
[2021-03-18] MEDS: Amlodipine 5 MG TAB PO SCH (08:48)
[2021-03-18] MEDS: Famotidine 20 MG TAB PO SCH ×2 (08:48→21:03)
[2021-03-18] MEDS: Carvedilol 25 MG TAB PO SCH (08:49)
[2021-03-18] MEDS: Famotidine/PF 20 mg/2ml Vial SLOW IVP SCH ×2 (08:50→21:06)
[2021-03-18] MEDS: Enoxaparin Sodium 40 MG/0.4 ML SYRINGE SC SCH (10:56)
[2021-03-18] MEDS: Ondansetron PF 4 MG/2 ML Vial IVP PRN (17:22)
[2021-03-19] MEDS: Ondansetron PF 4 MG/2 ML Vial IVP PRN ×4 (02:18→22:48)
[2021-03-19] MEDS: Promethazine HCl 25 MG/ML VIAL IM PRN ×3 (04:49→20:55)
[2021-03-19] MEDS: Nitroglycerin 2% Ointment 1 INCH/1 GM Packet TOP SCH ×3 (05:42→20:52)
[2021-03-19] MEDS: Fentanyl 100 MCG/2 ML VIAL SLOW IVP PRN ×5 (05:51→20:53)
[2021-03-19] MEDS: Carvedilol 25 MG TAB PO SCH (09:14)
[2021-03-19] MEDS: Escitalopram Oxalate 10 mg Tablet PO SCH (09:14)
[2021-03-19] MEDS: Amlodipine 5 MG TAB PO SCH (09:14)
[2021-03-19] MEDS: Lisinopril 20 MG TAB PO SCH (09:14)
[2021-03-19] MEDS: Famotidine 20 MG TAB PO SCH ×2 (09:15→21:13)
[2021-03-19] MEDS: Famotidine/PF 20 mg/2ml Vial SLOW IVP SCH ×2 (09:15→20:55)
[2021-03-19] MEDS: Enoxaparin Sodium 40 MG/0.4 ML SYRINGE SC SCH (10:11)
[2021-03-19] MEDS ORDERED: Amlodipine 5 MG TAB PO SCH (14:30)
[2021-03-19] MEDS: D5 1/2 NS w/20 mEq KCL 1,000 ML IV SCH (16:57)
[2021-03-19] MEDS: traMADol HCl 50 MG TAB PO PRN (22:48)
[2021-03-20] MEDS: Fentanyl 100 MCG/2 ML VIAL SLOW IVP PRN ×3 (01:58→15:43)
[2021-03-20] MEDS: Promethazine HCl 25 MG/ML VIAL IM PRN ×2 (01:58→15:15)
[2021-03-20] MEDS: D5 1/2 NS w/20 mEq KCL 1,000 ML IV SCH ×2 (02:00→18:36)
[2021-03-20] MEDS: Nitroglycerin 2% Ointment 1 INCH/1 GM Packet TOP SCH ×3 (05:18→20:24)
[2021-03-20 05:57] LABS: #Lymphocytes 1.6 thou/uL (1.20-3.40); #Monocytes 0.9 thou/uL (0.11-0.59); #Neutrophils 8.5 thou/uL (1.40-6.50); %Basophils 0.1 % (0.0-1.0); %Eosinophils 0.3 % (0.0-10.0); %Lymphocytes 14.3 % (21.0-51.0); %Neutrophils 77.4 % (42.0-75.0); Hemoglobin 7.4 g/dL (12.0-16.0); Mean Corpuscular HGB CONC 29.8 g/dL (32.0-36.0); Mean Corpuscular Volume 80.7 fL (78.0-98.0); Mean Platelet Volume 9.7 fL (7.4-10.4); Platelet Count 240 thou/uL (130-400); RBC Distribution Width 16.2 % (11.5-14.5); Red Blood Cell (RBC) Count 3.09 mill/uL (4.20-5.40)
[2021-03-20 06:09] LABS: Anion Gap 13 mmol/L (10-20); BUN (Urea Nitrogen) 10 mg/dL (9.8-20.1); Calc. Creatinine Clearance 71 mL/min (70-130); Calcium 8.3 mg/dL (7.8-10.44); Carbon Dioxide 24 mmol/L (23-31); Chloride 102 mmol/L (98-107); Glucose 146 mg/dL (83-110); Potassium 4.8 mmol/L (3.5-5.1); Sodium 134 mmol/L (136-145)
[2021-03-20] MEDS: Amlodipine 5 MG TAB PO SCH (10:03)
[2021-03-20] MEDS: Lisinopril 20 MG TAB PO SCH (10:03)
[2021-03-20] MEDS: Famotidine/PF 20 mg/2ml Vial SLOW IVP SCH ×2 (10:04→20:17)
[2021-03-20] MEDS: Famotidine 20 MG TAB PO SCH ×2 (10:04→20:01)
[2021-03-20] MEDS: Carvedilol 25 MG TAB PO SCH (10:04)
[2021-03-20] MEDS: Escitalopram Oxalate 10 mg Tablet PO SCH (10:04)
[2021-03-20] MEDS: Ondansetron PF 4 MG/2 ML Vial IVP PRN ×2 (10:06→20:17)
[2021-03-20] MEDS: Enoxaparin Sodium 40 MG/0.4 ML SYRINGE SC SCH (12:05)
[2021-03-20] MEDS: traMADol HCl 50 MG TAB PO PRN ×2 (13:33→20:16)
[2021-03-21] MEDS: Fentanyl 100 MCG/2 ML VIAL SLOW IVP PRN ×3 (02:18→16:15)
[2021-03-21] MEDS: Nitroglycerin 2% Ointment 1 INCH/1 GM Packet TOP SCH ×2 (07:24→14:13)
[2021-03-21 07:51] LABS: #Eosinphils 0.2 thou/uL (0.0-0.7); #Lymphocytes 1.1 thou/uL (1.20-3.40); #Monocytes 0.8 thou/uL (0.11-0.59); #Neutrophils 5.9 thou/uL (1.40-6.50); %Basophils 0.3 % (0.0-1.0); %Eosinophils 2.3 % (0.0-10.0); %Lymphocytes 13.7 % (21.0-51.0); %Monocytes 10.1 % (0.0-10.0); %Neutrophils 73.7 % (42.0-75.0); Hemoglobin 7.9 g/dL (12.0-16.0); Mean Corpuscular Hemoglobin 24.5 pg (27.0-31.0); Platelet Count 248 thou/uL (130-400); RBC Distribution Width 16.1 % (11.5-14.5); Red Blood Cell (RBC) Count 3.24 mill/uL (4.20-5.40)
[2021-03-21 08:05] LABS: Anion Gap 12 mmol/L (10-20); BUN (Urea Nitrogen) 7 mg/dL (9.8-20.1); Calc. Creatinine Clearance 77 mL/min (70-130); Calcium 8.2 mg/dL (7.8-10.44); Carbon Dioxide 26 mmol/L (23-31); Chloride 102 mmol/L (98-107); Glucose 148 mg/dL (83-110); Potassium 4.5 mmol/L (3.5-5.1); Sodium 135 mmol/L (136-145)
[2021-03-21 09:02] LABS: Hypochromia SLIGHT = 6-15 cells (100X) (0-5/hpf); MDiff Complete? YES; Microcytosis SLIGHT = 6-15 cells (100X) (0-5/hpf); Polychromasia SLIGHT = 2-3 cells (100X) (0-2/hpf)
[2021-03-21] MEDS: Carvedilol 25 MG TAB PO SCH ×2 (09:27→20:03)
[2021-03-21] MEDS: Famotidine 20 MG TAB PO SCH ×2 (09:27→22:09)
[2021-03-21] MEDS: Escitalopram Oxalate 10 mg Tablet PO SCH (09:27)
[2021-03-21] MEDS: Amlodipine 5 MG TAB PO SCH (09:28)
[2021-03-21] MEDS: Lisinopril 20 MG TAB PO SCH (09:28)
[2021-03-21] MEDS: D5 1/2 NS w/20 mEq KCL 1,000 ML IV SCH ×2 (09:52→22:26)
[2021-03-21] MEDS: Famotidine/PF 20 mg/2ml Vial SLOW IVP SCH ×2 (10:04→20:04)
[2021-03-21] MEDS: Enoxaparin Sodium 40 MG/0.4 ML SYRINGE SC SCH (11:49)
[2021-03-21] MEDS ORDERED: Nitroglycerin 2% Ointment 1 INCH/1 GM Packet TOP PRN (14:07)
[2021-03-21] MEDS ORDERED: Chloraseptic Spray 180 ml Bottle PO PRN (16:44)
[2021-03-22] MEDS: Melatonin 3 MG TAB PO PRN ×2 (02:33→20:56)
[2021-03-22 05:54] LABS: #Eosinphils 0.1 thou/uL (0.0-0.7); #Lymphocytes 1.4 thou/uL (1.20-3.40); #Monocytes 1.1 thou/uL (0.11-0.59); #Neutrophils 5.4 thou/uL (1.40-6.50); %Eosinophils 1.8 % (0.0-10.0); %Lymphocytes 17.2 % (21.0-51.0); %Monocytes 13.6 % (0.0-10.0); %Neutrophils 67.3 % (42.0-75.0); Hemoglobin 7.7 g/dL (12.0-16.0); Mean Corpuscular HGB CONC 31.6 g/dL (32.0-36.0); Mean Corpuscular Hemoglobin 24.9 pg (27.0-31.0); Mean Corpuscular Volume 78.9 fL (78.0-98.0); Mean Platelet Volume 9.1 fL (7.4-10.4); Platelet Count 256 thou/uL (130-400); RBC Distribution Width 16.4 % (11.5-14.5); Red Blood Cell (RBC) Count 3.09 mill/uL (4.20-5.40); White Blood Cell (WBC) Count 8.1 thou/uL (4.8-10.8)
[2021-03-22 06:21] LABS: Anion Gap 15 mmol/L (10-20); BUN (Urea Nitrogen) 6 mg/dL (9.8-20.1); Calc. Creatinine Clearance 77 mL/min (70-130); Calcium 8.3 mg/dL (7.8-10.44); Carbon Dioxide 22 mmol/L (23-31); Chloride 103 mmol/L (98-107); Glucose 137 mg/dL (83-110); Potassium 4.1 mmol/L (3.5-5.1); Sodium 136 mmol/L (136-145)
[2021-03-22] MEDS: Lisinopril 20 MG TAB PO SCH (09:07)
[2021-03-22] MEDS: Amlodipine 5 MG TAB PO SCH (09:08)
[2021-03-22] MEDS: Carvedilol 25 MG TAB PO SCH ×2 (09:08→20:52)
[2021-03-22] MEDS: Escitalopram Oxalate 10 mg Tablet PO SCH (09:08)
[2021-03-22] MEDS: Famotidine/PF 20 mg/2ml Vial SLOW IVP SCH ×2 (09:09→22:52)
[2021-03-22] MEDS: Famotidine 20 MG TAB PO SCH ×2 (09:09→20:53)
[2021-03-22] MEDS: Enoxaparin Sodium 40 MG/0.4 ML SYRINGE SC SCH (09:14)
[2021-03-22] MEDS ORDERED: Carvedilol 25 MG TAB PO SCH (10:30)
[2021-03-22] MEDS: D5 1/2 NS w/20 mEq KCL 1,000 ML IV SCH (11:04)
[2021-03-22] MEDS ORDERED: D5 1/2 NS w/20 mEq KCL 1,000 ML IV SCH (16:59)
[2021-03-22] MEDS: traMADol HCl 50 MG TAB PO PRN (18:33)
[2021-03-23 07:04] LABS: Anion Gap 10 mmol/L (10-20); BUN (Urea Nitrogen) 6 mg/dL (9.8-20.1); Calc. Creatinine Clearance 82 mL/min (70-130); Calcium 8.1 mg/dL (7.8-10.44); Carbon Dioxide 24 mmol/L (23-31); Chloride 104 mmol/L (98-107); Glucose 123 mg/dL (83-110); Potassium 3.7 mmol/L (3.5-5.1); Sodium 134 mmol/L (136-145)
[2021-03-23] MEDS: Amlodipine 5 MG TAB PO SCH (08:50)
[2021-03-23] MEDS: Escitalopram Oxalate 10 mg Tablet PO SCH (08:51)
[2021-03-23] MEDS: Famotidine 20 MG TAB PO SCH (08:51)
[2021-03-23] MEDS: Lisinopril 20 MG TAB PO SCH (08:51)
[2021-03-23] MEDS: Carvedilol 25 MG TAB PO SCH (08:51)
[2021-03-23] MEDS: Famotidine/PF 20 mg/2ml Vial SLOW IVP SCH (08:52)
[2021-03-23] MEDS: Enoxaparin Sodium 40 MG/0.4 ML SYRINGE SC SCH (08:53)
[2021-03-23 09:09] LABS: Eosinophils 2 % (0-10); Hemoglobin 7.4 g/dL (12.0-16.0); Hypochromia MODERATE=16-30 cells (100X) (0-5/hpf); Lymphocytes 15 % (21-51); MDiff Complete? YES; Mean Corpuscular HGB CONC 31.2 g/dL (32.0-36.0); Mean Corpuscular Hemoglobin 24.4 pg (27.0-31.0); Mean Corpuscular Volume 78.4 fL (78.0-98.0); Mean Platelet Volume 9.5 fL (7.4-10.4); Microcytosis SLIGHT = 6-15 cells (100X) (0-5/hpf); Monocytes 14 % (0-10); Neutrophil 69 % (42-75); Platelet Count 225 thou/uL (130-400); Platelet Morphology Comment Appears Adequate; Polychromasia SLIGHT = 2-3 cells (100X) (0-2/hpf); RBC Distribution Width 16.3 % (11.5-14.5); White Blood Cell (WBC) Count 6.2 thou/uL (4.8-10.8)
[2021-03-23 15:37] VITALS: BP 148/72; TEMP 98.6
== END 2021-03-23 18:35 | disposition home health service (06) | DRG 330 ==
LOC: ERS 13:29 → ERHOLD 16:54 → 2NO 18:27 → OBSVTOIN 03-17 11:33 → SURG B 03-17 20:20
PROVIDERS: ADMIT Internal Medicine; ATTEND Family Medicine
PROC: 0DJ08ZZ Inspection of Upper Intestinal Tract, Via Natural or Artificial Opening Endoscopic (ICD-10-PCS; 2021-03-16)
PROC: 0DJD8ZZ Inspection of Lower Intestinal Tract, Via Natural or Artificial Opening Endoscopic (ICD-10-PCS; 2021-03-16)
PROC: 0DTF0ZZ Resection of Right Large Intestine, Open Approach (ICD-10-PCS; principal; 2021-03-17)
DX: C18.2 Malignant neoplasm of ascending colon (principal); K92.2 Gastrointestinal hemorrhage, unspecified; D62 Acute posthemorrhagic anemia; I42.8 Other cardiomyopathies; K56.7 Ileus, unspecified; Z20.822 Contact with and (suspected) exposure to COVID-19; R07.9 Chest pain, unspecified; I48.0 Paroxysmal atrial fibrillation; F41.9 Anxiety disorder, unspecified; F32.9 Major depressive disorder, single episode, unspecified; Z66 Do not resuscitate; I25.10 Atherosclerotic heart disease of native coronary artery without angina pectoris; I49.5 Sick sinus syndrome; K21.9 Gastro-esophageal reflux disease without esophagitis; G47.30 Sleep apnea, unspecified; E11.9 Type 2 diabetes mellitus without complications; I11.0 Hypertensive heart disease with heart failure; I50.9 Heart failure, unspecified; Z96.653 Presence of artificial knee joint, bilateral; Z96.611 Presence of right artificial shoulder joint; Z96.612 Presence of left artificial shoulder joint; R13.10 Dysphagia, unspecified; K57.30 Diverticulosis of large intestine without perforation or abscess without bleeding; Z60.2 Problems related to living alone; Z86.73 Personal history of transient ischemic attack (TIA), and cerebral infarction without residual deficits; Z88.1 Allergy status to other antibiotic agents; Z88.8 Allergy status to other drugs, medicaments and biological substances; Z79.01 Long term (current) use of anticoagulants; Z79.82 Long term (current) use of aspirin; Z88.2 Allergy status to sulfonamides; Z90.710 Acquired absence of both cervix and uterus; Z95.0 Presence of cardiac pacemaker; Z90.49 Acquired absence of other specified parts of digestive tract; Z79.899 Other long term (current) drug therapy; Z51.5 Encounter for palliative care; Z90.721 Acquired absence of ovaries, unilateral; Z79.52 Long term (current) use of systemic steroids
CPT/HCPCS: 36415; 36416; 71045; 74177; 80048; 80053; 82274; 83690; 83735; 84484; 85025; 86850; 86900; 86901; 88309; 96374; 96376; C9113; G0378; J0694; J1100; J1170; J1650; J2405; J2550; J2704; J3010; J3480; J3490; Q9967; S0028; U0002; U0003; U0005

== ENCOUNTER 2021-04-19 17:13 | Emergency (ER) | payer MEDICARE, MEDICAID ==
[2021-04-19 17:52] LABS: #Eosinphils 0.2 thou/uL (0.0-0.7); #Lymphocytes 1.8 thou/uL (1.20-3.40); #Monocytes 0.6 thou/uL (0.11-0.59); #Neutrophils 1.9 thou/uL (1.40-6.50); %Basophils 0.6 % (0.0-1.0); %Eosinophils 3.4 % (0.0-10.0); %Lymphocytes 39.8 % (21.0-51.0); %Neutrophils 42.1 % (42.0-75.0); Hemoglobin 8.2 g/dL (12.0-16.0); Mean Corpuscular HGB CONC 30.5 g/dL (32.0-36.0); Mean Corpuscular Hemoglobin 23.9 pg (27.0-31.0); Mean Corpuscular Volume 78.2 fL (78.0-98.0); Platelet Count 253 thou/uL (130-400); RBC Distribution Width 17.6 % (11.5-14.5); Red Blood Cell (RBC) Count 3.43 mill/uL (4.20-5.40); White Blood Cell (WBC) Count 4.4 thou/uL (4.8-10.8)
[2021-04-19 18:04] LABS: INR-International Normal Ratio 1.2; Prothrombin Time 15.4 sec (12.0-14.7)
[2021-04-19 18:05] LABS: PTT 37.6 sec (22.9-36.1)
[2021-04-19 18:18] LABS: ALT (SGPT) 11 U/L (8-55); AST (SGOT) 21 U/L (5-34); Albumin 3.2 g/dL (3.4-4.8); Alkaline Phosphatase 59 U/L (40-110); Anion Gap 10 mmol/L (10-20); BUN (Urea Nitrogen) 8 mg/dL (9.8-20.1); Bilirubin, Total 0.5 mg/dL (0.2-1.2); Calc. Creatinine Clearance 0 mL/min (70-130); Calcium 8.5 mg/dL (7.8-10.44); Carbon Dioxide 24 mmol/L (23-31); Chloride 104 mmol/L (98-107); Globulin 3.7 g/dL (2.4-3.5); Glucose 105 mg/dL (83-110); Potassium 3.4 mmol/L (3.5-5.1); Protein, Total 6.9 g/dL (5.8-8.1); Sodium 135 mmol/L (136-145)
== END 2021-04-19 19:48 | disposition home or self-care (01) ==
LOC: ERS 17:13
DX: D64.9 Anemia, unspecified (principal); I10 Essential (primary) hypertension; Z86.73 Personal history of transient ischemic attack (TIA), and cerebral infarction without residual deficits; Z85.038 Personal history of other malignant neoplasm of large intestine
CPT/HCPCS: 36415; 80053; 85025; 85610; 85730; 86850; 86900; 86901; 99284

== ENCOUNTER 2021-04-24 08:09 | Observation (INO) | payer MEDICARE, MEDICAID ==
[2021-04-24 08:41] LABS: #Eosinphils 0.1 thou/uL (0.0-0.7); #Lymphocytes 1.3 thou/uL (1.20-3.40); #Monocytes 0.5 thou/uL (0.11-0.59); #Neutrophils 1.6 thou/uL (1.40-6.50); %Basophils 0.3 % (0.0-1.0); %Eosinophils 3.1 % (0.0-10.0); %Monocytes 14.4 % (0.0-10.0); %Neutrophils 46.3 % (42.0-75.0); Hemoglobin 8.1 g/dL (12.0-16.0); Mean Corpuscular HGB CONC 29.8 g/dL (32.0-36.0); Mean Corpuscular Hemoglobin 23.2 pg (27.0-31.0); Mean Corpuscular Volume 77.8 fL (78.0-98.0); Mean Platelet Volume 9.4 fL (7.4-10.4); Platelet Count 259 thou/uL (130-400); RBC Distribution Width 18.1 % (11.5-14.5); Red Blood Cell (RBC) Count 3.51 mill/uL (4.20-5.40); White Blood Cell (WBC) Count 3.5 thou/uL (4.8-10.8)
[2021-04-24 08:57] LABS: Anisocytosis SLIGHT = 6-15 cells (100X) (0-5/hpf); Hypochromia SLIGHT = 6-15 cells (100X) (0-5/hpf); MDiff Complete? YES; Poikilocytosis SLIGHT = 6-15 cells (100X) (0-5/hpf)
[2021-04-24 09:01] LABS: ALT (SGPT) 10 U/L (8-55); AST (SGOT) 18 U/L (5-34); Albumin 3.3 g/dL (3.4-4.8); Alkaline Phosphatase 60 U/L (40-110); Anion Gap 9 mmol/L (10-20); BUN (Urea Nitrogen) 7 mg/dL (9.8-20.1); Bilirubin, Total 0.6 mg/dL (0.2-1.2); Calc. Creatinine Clearance 0 mL/min (70-130); Calcium 8.8 mg/dL (7.8-10.44); Carbon Dioxide 28 mmol/L (23-31); Chloride 102 mmol/L (98-107); Globulin 3.6 g/dL (2.4-3.5); Glucose 98 mg/dL (83-110); Potassium 3.6 mmol/L (3.5-5.1); Protein, Total 6.9 g/dL (5.8-8.1); Sodium 135 mmol/L (136-145)
[2021-04-24] MEDS ORDERED: Pantoprazole 40 MG VIAL IVP SCH (10:30)
[2021-04-24 12:03] VITALS: BMI 27.5
[2021-04-24] MEDS ORDERED: Ondansetron PF 4 MG/2 ML Vial IVP PRN (12:39)
[2021-04-24] MEDS ORDERED: Ondansetron ODT 4 MG TAB PO PRN (12:39)
[2021-04-24] MEDS ORDERED: Potassium Chloride 10 MEQ in Dextrose 5 % And 0.9 % NaCl 1,000 ML IV SCH (13:00)
[2021-04-24 13:08] LABS: INR-International Normal Ratio 1.3; Prothrombin Time 15.9 sec (12.0-14.7)
[2021-04-24 13:09] LABS: PTT 36.9 sec (22.9-36.1)
[2021-04-24 13:16] LABS: Hemoglobin 7.7 g/dL (12.0-16.0)
[2021-04-25] MEDS ORDERED: ALPRAZolam 0.5 MG TAB PO SCH (00:15)
[2021-04-25 01:10] LABS: Hemoglobin 9.4 g/dL (12.0-16.0)
[2021-04-25] MEDS ORDERED: hydrALAZINE 20 MG/ML VIAL SLOW IVP SCH (01:18)
[2021-04-25] MEDS: Acetaminophen 325 MG TAB PO PRN ×2 (03:27→08:19)
[2021-04-25 07:20] LABS: #Eosinphils 0.1 thou/uL (0.0-0.7); #Lymphocytes 1.6 thou/uL (1.20-3.40); #Monocytes 0.6 thou/uL (0.11-0.59); #Neutrophils 2.2 thou/uL (1.40-6.50); %Basophils 0.5 % (0.0-1.0); %Eosinophils 3.1 % (0.0-10.0); %Lymphocytes 34.9 % (21.0-51.0); %Monocytes 13.6 % (0.0-10.0); %Neutrophils 47.8 % (42.0-75.0); Hemoglobin 9.7 g/dL (12.0-16.0); Mean Corpuscular HGB CONC 31.8 g/dL (32.0-36.0); Mean Corpuscular Hemoglobin 24.8 pg (27.0-31.0); Mean Corpuscular Volume 78.1 fL (78.0-98.0); Mean Platelet Volume 10.2 fL (7.4-10.4); Platelet Count 246 thou/uL (130-400); RBC Distribution Width 18.1 % (11.5-14.5); White Blood Cell (WBC) Count 4.6 thou/uL (4.8-10.8)
[2021-04-25 07:41] LABS: Anion Gap 11 mmol/L (10-20); BUN (Urea Nitrogen) 6 mg/dL (9.8-20.1); Calc. Creatinine Clearance 84 mL/min (70-130); Calcium 8.5 mg/dL (7.8-10.44); Carbon Dioxide 24 mmol/L (23-31); Chloride 104 mmol/L (98-107); Glucose 118 mg/dL (83-110); Potassium 3.1 mmol/L (3.5-5.1); Sodium 136 mmol/L (136-145)
[2021-04-25] MEDS ORDERED: Amlodipine 5 MG TAB PO SCH (09:00)
[2021-04-25] MEDS ORDERED: Carvedilol 6.25 MG TAB PO SCH (09:00)
[2021-04-25] MEDS ORDERED: Pantoprazole 40 MG VIAL IVP SCH (09:00)
[2021-04-25] MEDS ORDERED: Escitalopram Oxalate 10 mg Tablet PO SCH (09:00)
[2021-04-25] MEDS ORDERED: ALPRAZolam 0.5 MG TAB PO PRN (09:12)
[2021-04-25 11:11] VITALS: BP 152/70; TEMP 98.4
[2021-04-25 11:21] LABS: SARS-CoV-2 PCR by NAA Not Detected (NotDetected)
[2021-04-25] MEDS ORDERED: Potassium Chloride 20 MEQ TAB PO SCH (11:30)
== END 2021-04-25 13:53 | disposition home or self-care (01) ==
LOC: ERS 08:09 → INTOOBSV 10:05 → T4-A 10:05
PROVIDERS: ADMIT Internal Medicine; ATTEND Family Medicine
DX: D53.9 Nutritional anemia, unspecified (principal); D72.819 Decreased white blood cell count, unspecified; E87.6 Hypokalemia; K92.1 Melena; I10 Essential (primary) hypertension; E78.5 Hyperlipidemia, unspecified; G89.29 Other chronic pain; M54.9 Dorsalgia, unspecified; I48.0 Paroxysmal atrial fibrillation; R19.7 Diarrhea, unspecified; R15.9 Full incontinence of feces; Z66 Do not resuscitate; Z85.038 Personal history of other malignant neoplasm of large intestine; Z86.73 Personal history of transient ischemic attack (TIA), and cerebral infarction without residual deficits; Z79.01 Long term (current) use of anticoagulants; Z79.899 Other long term (current) drug therapy; Z88.1 Allergy status to other antibiotic agents; Z90.49 Acquired absence of other specified parts of digestive tract; Z95.0 Presence of cardiac pacemaker; Z20.822 Contact with and (suspected) exposure to COVID-19
CPT/HCPCS: 36430; 80048; 80053; 85014 ×2; 85018 ×2; 85025 ×2; 85610; 85730; 86850 ×2; 86870; 86900; 86901; 86920; 86922; 96374; 97139; 99285; P9016; U0003; U0005; 36415; 82274; 96375; 96376; C9113; G0378; J0360; J3480; J7042; Q0162

== ENCOUNTER 2021-07-15 11:19 | Outpatient (CLI) | payer MEDICARE, MEDICAID ==
[~2021-07-15 11:19] MED LIST changes: -EPINEPHrine 1 MG/ML AMP ONE; -Iopamidol 300 61% 50 ML VIAL FS ONE; +Iopamidol 370 76% 100 ML VIAL ONE; -Lidocaine 1% PF 10 ML AMP ONE; -Sodium Chloride 0.9% 50 ML BAG ONE
== END 2021-07-15 11:20 | disposition home or self-care (01) ==
LOC: CT 11:19
PROVIDERS: ATTEND Family Medicine
DX: R51.9 Headache, unspecified (principal); I65.01 Occlusion and stenosis of right vertebral artery
CPT/HCPCS: 70470; 82565; Q9967

== ENCOUNTER 2021-09-07 13:45 | Emergency (ER) | payer MEDICAID, MEDICARE, OTHER ==
[2021-09-07] MEDS ORDERED: Fentanyl 100 MCG/2 ML VIAL ONE (13:56)
[2021-09-07 14:24] LABS: #Basophils 0.1 thou/uL (0.0-0.2); #Eosinphils 0.1 thou/uL (0.0-0.7); #Lymphocytes 1.5 thou/uL (1.20-3.40); #Monocytes 0.5 thou/uL (0.11-0.59); #Neutrophils 2.2 thou/uL (1.40-6.50); %Basophils 1.5 % (0.0-1.0); %Lymphocytes 34.4 % (21.0-51.0); %Monocytes 11.8 % (0.0-10.0); %Neutrophils 49.3 % (42.0-75.0); Hemoglobin 14.4 g/dL (12.0-16.0); Mean Corpuscular HGB CONC 33.6 g/dL (32.0-36.0); Mean Corpuscular Hemoglobin 34.5 pg (27.0-31.0); Mean Platelet Volume 7.7 fL (7.4-10.4); Platelet Count 174 thou/uL (130-400); RBC Distribution Width 12.1 % (11.5-14.5); Red Blood Cell (RBC) Count 4.16 mill/uL (4.20-5.40); White Blood Cell (WBC) Count 4.5 thou/uL (4.8-10.8)
[2021-09-07 14:37] LABS: INR-International Normal Ratio 1.2; PTT 38.6 sec (22.9-36.1); Prothrombin Time 15.4 sec (12.0-14.7)
[2021-09-07 14:49] LABS: ALT (SGPT) 12 U/L (8-55); AST (SGOT) 20 U/L (5-34); Albumin 3.8 g/dL (3.4-4.8); Alkaline Phosphatase 47 U/L (40-110); Anion Gap 14 mmol/L (10-20); BUN (Urea Nitrogen) 18 mg/dL (9.8-20.1); Bilirubin, Total 1.3 mg/dL (0.2-1.2); Calc. Creatinine Clearance 0 mL/min (70-130); Calcium 9.2 mg/dL (7.8-10.44); Carbon Dioxide 22 mmol/L (23-31); Chloride 106 mmol/L (98-107); Globulin 3.4 g/dL (2.4-3.5); Glucose 115 mg/dL (83-110); Potassium 4.4 mmol/L (3.5-5.1); Protein, Total 7.2 g/dL (5.8-8.1); Sodium 138 mmol/L (136-145)
== END 2021-09-07 17:53 | disposition home or self-care (01) ==
LOC: ERS 13:45
DX: S09.90XA Unspecified injury of head, initial encounter (principal); I49.8 Other specified cardiac arrhythmias; I10 Essential (primary) hypertension; W01.0XXA Fall on same level from slipping, tripping and stumbling without subsequent striking against object, initial encounter; Y93.01 Activity, walking, marching and hiking; Y92.009 Unspecified place in unspecified non-institutional (private) residence as the place of occurrence of the external cause; Z86.73 Personal history of transient ischemic attack (TIA), and cerebral infarction without residual deficits; Z95.0 Presence of cardiac pacemaker; Z85.038 Personal history of other malignant neoplasm of large intestine
CPT/HCPCS: 36415; 70450; 71045; 72192; 80053; 85025; 85610; 85730; 86850; 86900; 86901; 93005; 96374; J3010

== ENCOUNTER 2022-02-01 17:55 | Emergency (ER) | payer MEDICARE, MEDICAID | END 2022-02-01 19:49 | disposition left against medical advice (07) | LOC: ERS 17:55 | DX: Z53.21 Procedure and treatment not carried out due to patient leaving prior to being seen by health care provider (principal) ==

== ENCOUNTER 2022-12-09 13:09 | Inpatient (IN) | payer OTHER, MEDICAID ==
[2022-12-09] MEDS ORDERED: Meclizine HCl 25 MG TAB ONE (13:35)
[2022-12-09 14:44] LABS: #Eosinphils 0.2 thou/uL (0.0-0.7); #Monocytes 0.4 thou/uL (0.11-0.59); #Neutrophils 2.3 thou/uL (1.40-6.50); %Basophils 0.6 % (0.0-1.0); %Lymphocytes 37.9 % (21.0-51.0); %Neutrophils 48.5 % (42.0-75.0); Hemoglobin 14.1 g/dL (12.0-16.0); Mean Corpuscular HGB CONC 33.2 g/dL (32.0-36.0); Mean Corpuscular Hemoglobin 31.7 pg (27.0-31.0); Mean Corpuscular Volume 95.5 fl (78.0-98.0); Platelet Count 156 10x3/uL (130-400); Red Blood Cell (RBC) Count 4.45 mill/uL (4.20-5.40); White Blood Cell (WBC) Count 4.8 10x3/uL (4.8-10.8)
[2022-12-09] MEDS ORDERED: hydrALAZINE 20 MG/ML VIAL ONE (14:54)
[2022-12-09 15:07] LABS: ALT (SGPT) 15 U/L (8-55); AST (SGOT) 22 U/L (5-34); Albumin 3.9 g/dL (3.4-4.8); Alkaline Phosphatase 55 U/L (40-110); Anion Gap 14 mmol/L (10-20); BUN (Urea Nitrogen) 13 mg/dL (9.8-20.1); Bilirubin, Total 0.9 mg/dL (0.2-1.2); CK (CPK) 72 U/L (29-168); Calc. Creatinine Clearance 0 mL/min (70-130); Calcium 9.4 mg/dL (7.8-10.44); Carbon Dioxide 26 mmol/L (23-31); Chloride 100 mmol/L (98-107); Estimated GFR 81; Globulin 3.2 g/dL (2.4-3.5); Glucose 128 mg/dL (83-110); Lipase 17 U/L (8-78); Protein, Total 7.1 g/dL (5.8-8.1); Sodium 136 mmol/L (136-145)
[2022-12-09] MEDS ORDERED: Acetaminophen 500 MG TAB ONE (15:38)
[2022-12-09] MEDS ORDERED: Acetaminophen 500 MG TAB PO PRN (17:01)
[2022-12-09] MEDS ORDERED: Meclizine HCl 25 MG TAB PO PRN (17:02)
[2022-12-09] MEDS ORDERED: Ondansetron ODT 4 MG TAB PO PRN (17:05)
[2022-12-09] MEDS ORDERED: Ondansetron PF 4 MG/2 ML Vial IVP PRN (17:05)
[2022-12-09] MEDS ORDERED: Morphine 2 MG/ML VIAL SLOW IVP PRN (17:09)
[2022-12-09 17:56] LABS: CKMB 2.4 ng/mL (0-6.6)
[2022-12-09] MEDS ORDERED: Aspirin 325 mg Enteric Coated Tablet PO SCH (18:00)
[2022-12-09] MEDS ORDERED: Aspirin 325 MG TAB ONE (18:17)
[2022-12-09 18:29] LABS: Bacteria/HPF None Seen HPF (None Seen); Bilirubin Negative (Negative); Blood, Urine Negative (Negative); CAUTI Indications for Culture Dysuria,urgency,freq; Clarity Clear (Clear); Glucose, Urine (Dipstick) Normal (Negative); Ketone, Urine Negative (Negative); Leukocyte Negative Leu/uL (Negative); Nitrite Negative (Negative); Protein, Urine (Dipstick) Negative (Neg-Trace); RBC/HPF None Seen HPF (0-3); Specific Gravity, Urine 1.006 (1.002-1.036); Squamous Epithelial 0-3 HPF (0-3); Urine Culture Reflex No No; Urobilinogen Normal mg/dL (Less than 2); WBC/HPF 0-3 HPF (0-3); pH, Urine 7.5 (5.0-9.0)
[2022-12-09] MEDS: Apixaban 5 MG TAB PO SCH (22:36)
[2022-12-10] MEDS: traMADol HCl 50 MG TAB PO PRN ×3 (04:19→18:14)
[2022-12-10] MEDS: hydrALAZINE 20 MG/ML VIAL SLOW IVP PRN ×2 (04:24→23:47)
[2022-12-10 04:47] LABS: ALT (SGPT) 15 U/L (8-55); AST (SGOT) 22 U/L (5-34); Albumin 3.7 g/dL (3.4-4.8); Alkaline Phosphatase 51 U/L (40-110); Anion Gap 15 mmol/L (10-20); BUN (Urea Nitrogen) 14 mg/dL (9.8-20.1); Calc. Creatinine Clearance 73 mL/min (70-130); Calcium 9.2 mg/dL (7.8-10.44); Carbon Dioxide 24 mmol/L (23-31); Chloride 106 mmol/L (98-107); Estimated GFR 80; Globulin 3.1 g/dL (2.4-3.5); Glucose 105 mg/dL (83-110); Potassium 3.5 mmol/L (3.5-5.1); Protein, Total 6.8 g/dL (5.8-8.1); Sodium 141 mmol/L (136-145)
[2022-12-10] MEDS ORDERED: Amlodipine 5 MG TAB PO SCH (09:00)
[2022-12-10] MEDS ORDERED: Lisinopril 20 MG TAB PO SCH (09:00)
[2022-12-10] MEDS: Aspirin 81 mg Enteric Coated Tablet PO SCH (09:48)
[2022-12-10] MEDS: Apixaban 5 MG TAB PO SCH ×2 (09:48→20:11)
[2022-12-10] MEDS: Rosuvastatin 20 MG TAB PO SCH (09:49)
[2022-12-10] MEDS: Escitalopram Oxalate 10 mg Tablet PO SCH (09:49)
[2022-12-10] MEDS: Carvedilol 25 MG TAB PO SCH (09:49)
[2022-12-10 13:06] LABS: Troponin I 0.013 ng/mL (< 0.028)
[2022-12-10] MEDS ORDERED: Acetaminophen 500 MG TAB PO PRN (14:15)
[2022-12-10] MEDS: ALPRAZolam 0.5 MG TAB PO PRN (22:37)
[2022-12-11] MEDS: Acetaminophen 325 MG TAB PO PRN ×3 (00:15→14:08)
[2022-12-11 05:06] LABS: ALT (SGPT) 19 U/L (8-55); AST (SGOT) 27 U/L (5-34); Albumin 3.7 g/dL (3.4-4.8); Alkaline Phosphatase 52 U/L (40-110); Anion Gap 14 mmol/L (10-20); BUN (Urea Nitrogen) 14 mg/dL (9.8-20.1); Bilirubin, Total 1.5 mg/dL (0.2-1.2); Calc. Creatinine Clearance 73 mL/min (70-130); Calcium 8.9 mg/dL (7.8-10.44); Carbon Dioxide 22 mmol/L (23-31); Chloride 102 mmol/L (98-107); Estimated GFR 80; Globulin 3.1 g/dL (2.4-3.5); Glucose 128 mg/dL (83-110); Potassium 3.6 mmol/L (3.5-5.1); Protein, Total 6.8 g/dL (5.8-8.1); Sodium 134 mmol/L (136-145)
[2022-12-11] MEDS: Amlodipine 5 MG TAB PO SCH (08:37)
[2022-12-11] MEDS: Apixaban 5 MG TAB PO SCH ×2 (08:37→21:12)
[2022-12-11] MEDS: Aspirin 81 mg Enteric Coated Tablet PO SCH (08:38)
[2022-12-11] MEDS: Carvedilol 25 MG TAB PO SCH (08:38)
[2022-12-11] MEDS: Escitalopram Oxalate 10 mg Tablet PO SCH (08:38)
[2022-12-11] MEDS: Rosuvastatin 20 MG TAB PO SCH (08:38)
[2022-12-11] MEDS: ALPRAZolam 0.5 MG TAB PO PRN (08:40)
[2022-12-11] MEDS: Carvedilol 6.25 MG TAB PO SCH (16:43)
[2022-12-11] MEDS: traMADol HCl 50 MG TAB PO PRN (22:23)
[2022-12-12] MEDS: Acetaminophen 325 MG TAB PO PRN (00:22)
[2022-12-12 07:14] LABS: ALT (SGPT) 13 U/L (8-55); AST (SGOT) 17 U/L (5-34); Albumin 3.5 g/dL (3.4-4.8); Alkaline Phosphatase 45 U/L (40-110); Anion Gap 13 mmol/L (10-20); BUN (Urea Nitrogen) 14 mg/dL (9.8-20.1); Bilirubin, Total 1.5 mg/dL (0.2-1.2); Calc. Creatinine Clearance 72 mL/min (70-130); Calcium 8.8 mg/dL (7.8-10.44); Carbon Dioxide 24 mmol/L (23-31); Chloride 105 mmol/L (98-107); Estimated GFR 78; Globulin 3.1 g/dL (2.4-3.5); Glucose 113 mg/dL (83-110); Potassium 3.8 mmol/L (3.5-5.1); Protein, Total 6.6 g/dL (5.8-8.1); Sodium 138 mmol/L (136-145)
[2022-12-12] MEDS ORDERED: Lidocaine 4% Patch TD SCH (09:00)
[2022-12-12] MEDS: Escitalopram Oxalate 10 mg Tablet PO SCH (09:22)
[2022-12-12] MEDS: Carvedilol 6.25 MG TAB PO SCH (09:22)
[2022-12-12] MEDS: Amlodipine 5 MG TAB PO SCH (09:22)
[2022-12-12] MEDS: Aspirin 81 mg Enteric Coated Tablet PO SCH (09:22)
[2022-12-12] MEDS: Apixaban 5 MG TAB PO SCH (09:22)
[2022-12-12] MEDS: Rosuvastatin 20 MG TAB PO SCH (09:22)
[2022-12-12] MEDS: ALPRAZolam 0.5 MG TAB PO PRN (09:28)
[2022-12-12 11:53] VITALS: BP 145/63; TEMP 98.4
[2022-12-12] MEDS ORDERED: Transdermal Patch Removal TOP SCH (21:00)
== END 2022-12-12 13:22 | DRG 563 ==
LOC: ERS 13:09 → ERHOLD 17:05 → OBSVTOIN 17:06 → 2NO 19:34 → T4-A 12-11 21:07
PROVIDERS: ADMIT Internal Medicine; ATTEND Hospitalist
DX: S52.122A Displaced fracture of head of left radius, initial encounter for closed fracture (principal); I69.351 Hemiplegia and hemiparesis following cerebral infarction affecting right dominant side; I16.0 Hypertensive urgency; I25.10 Atherosclerotic heart disease of native coronary artery without angina pectoris; I10 Essential (primary) hypertension; I48.0 Paroxysmal atrial fibrillation; W19.XXXA Unspecified fall, initial encounter; R53.81 Other malaise; M19.90 Unspecified osteoarthritis, unspecified site; R42 Dizziness and giddiness; Z95.0 Presence of cardiac pacemaker; Z79.01 Long term (current) use of anticoagulants; Z85.038 Personal history of other malignant neoplasm of large intestine; Z92.3 Personal history of irradiation; Z88.8 Allergy status to other drugs, medicaments and biological substances; Z90.49 Acquired absence of other specified parts of digestive tract; Z88.2 Allergy status to sulfonamides; Z88.1 Allergy status to other antibiotic agents; Z79.899 Other long term (current) drug therapy; Z90.710 Acquired absence of both cervix and uterus; Z98.890 Other specified postprocedural states
CPT/HCPCS: 36415; 70450; 71045; 80053; 81001; 82550; 82553; 83690; 83880; 84484; 85025; 93005; 96374; J0360; J2272

== ENCOUNTER 2023-05-12 13:21 | Inpatient (IN) | payer MEDICAID, OTHER ==
[2023-05-12 13:43] LABS: #Eosinphils 0.1 thou/uL (0.0-0.7); #Monocytes 0.4 thou/uL (0.11-0.59); #Neutrophils 1.9 thou/uL (1.40-6.50); %Basophils 0.7 % (0.0-1.0); %Eosinophils 2.4 % (0.0-10.0); %Lymphocytes 40.9 % (21.0-51.0); %Monocytes 10.5 % (0.0-10.0); %Neutrophils 45.5 % (42.0-75.0); Hematocrit 41.5 % (36.0-47.0); Hemoglobin 13.4 g/dL (12.0-16.0); Mean Corpuscular HGB CONC 32.3 g/dL (32.0-36.0); Mean Corpuscular Hemoglobin 31.2 pg (27.0-31.0); Mean Corpuscular Volume 96.7 fl (78.0-98.0); Mean Platelet Volume 10.3 fL (7.4-10.4); Platelet Count 145 10x3/uL (130-400); RBC Distribution Width 13.5 % (11.5-14.5); Red Blood Cell (RBC) Count 4.29 mill/uL (4.20-5.40); White Blood Cell (WBC) Count 4.2 10x3/uL (4.8-10.8)
[2023-05-12 14:07] LABS: ALT (SGPT) 10 U/L (8-55); AST (SGOT) 20 U/L (5-34); Albumin 3.9 g/dL (3.4-4.8); Alkaline Phosphatase 44 U/L (40-110); Anion Gap 12 mmol/L (10-20); BUN (Urea Nitrogen) 11 mg/dL (9.8-20.1); Bilirubin, Total 1.7 mg/dL (0.2-1.2); Calc. Creatinine Clearance 0 mL/min (70-130); Calcium 9.1 mg/dL (7.8-10.44); Carbon Dioxide 25 mmol/L (23-31); Chloride 106 mmol/L (98-107); Estimated GFR 72; Glucose 103 mg/dL (83-110); Lipase 17 U/L (8-78); Potassium 3.9 mmol/L (3.5-5.1); Protein, Total 6.9 g/dL (5.8-8.1); Sodium 139 mmol/L (136-145)
[2023-05-12 14:09] LABS: Troponin I Less than 0.010 ng/mL (< 0.028)
[2023-05-12] MEDS ORDERED: Iopamidol-370 76% 500 ML MDV (1 ML CHARGE) ONE (14:31)
[2023-05-12 16:18] LABS: Bacteria/HPF None Seen HPF (None Seen); Bilirubin Negative (Negative); Blood, Urine Negative (Negative); CAUTI Indications for Culture Alt mental st,lethar; Clarity Clear (Clear); Glucose, Urine (Dipstick) Normal (Negative); Ketone, Urine Negative (Negative); Leukocyte 25 Leu/uL (Negative); Nitrite Negative (Negative); Protein, Urine (Dipstick) Negative (Neg-Trace); RBC/HPF 0-3 HPF (0-3); Specific Gravity, Urine 1.015 (1.002-1.036); Squamous Epithelial None Seen HPF (0-3); Urobilinogen Normal mg/dL (Less than 2); pH, Urine 7.5 (5.0-9.0)
[2023-05-12 16:19] LABS: Urine Culture Reflex No No
[2023-05-12] MEDS ORDERED: Aspirin Chewable 81 MG TAB ONE (16:25)
[2023-05-12] MEDS ORDERED: Furosemide 40 MG/4 ML VIAL ONE (16:31)
[2023-05-12] MEDS ORDERED: Acetaminophen 325 MG TAB PO PRN (17:15)
[2023-05-12] MEDS ORDERED: Ondansetron ODT 4 MG TAB PO PRN (17:15)
[2023-05-12 18:08] LABS: Troponin I Less than 0.010 ng/mL (< 0.028)
[2023-05-12 18:14] LABS: Magnesium 1.9 mg/dL (1.6-2.6)
[2023-05-12 20:20] LABS: Troponin I Less than 0.010 ng/mL (< 0.028)
[2023-05-12] MEDS ORDERED: Famotidine 20 MG TAB PO SCH (21:00)
[2023-05-12 21:02] VITALS: BMI 28.1
[2023-05-12] MEDS: Carvedilol 6.25 MG TAB PO SCH (21:17)
[2023-05-12] MEDS: ALPRAZolam 0.5 MG TAB PO PRN (21:17)
[2023-05-12] MEDS: Atorvastatin Calcium 10 MG TAB PO SCH (21:17)
[2023-05-12] MEDS: Apixaban 5 MG TAB PO SCH (21:17)
[2023-05-13] MEDS: Furosemide 20 MG/2 ML VIAL SLOW IVP SCH ×2 (05:16→13:19)
[2023-05-13 07:30] LABS: #Eosinphils 0.1 thou/uL (0.0-0.7); #Monocytes 0.5 thou/uL (0.11-0.59); #Neutrophils 2.5 thou/uL (1.40-6.50); %Basophils 0.8 % (0.0-1.0); %Eosinophils 2.7 % (0.0-10.0); %Lymphocytes 32.5 % (21.0-51.0); %Monocytes 10.1 % (0.0-10.0); %Neutrophils 53.7 % (42.0-75.0); Hematocrit 44.6 % (36.0-47.0); Hemoglobin 14.5 g/dL (12.0-16.0); Mean Corpuscular HGB CONC 32.5 g/dL (32.0-36.0); Mean Corpuscular Hemoglobin 31.7 pg (27.0-31.0); Mean Corpuscular Volume 97.6 fl (78.0-98.0); Platelet Count 141 10x3/uL (130-400); RBC Distribution Width 13.4 % (11.5-14.5); Red Blood Cell (RBC) Count 4.57 mill/uL (4.20-5.40); White Blood Cell (WBC) Count 4.7 10x3/uL (4.8-10.8)
[2023-05-13 08:01] LABS: Anion Gap 13 mmol/L (10-20); BUN (Urea Nitrogen) 12 mg/dL (9.8-20.1); Calc. Creatinine Clearance 65 mL/min (70-130); Carbon Dioxide 26 mmol/L (23-31); Chloride 101 mmol/L (98-107); Estimated GFR 73; Glucose 101 mg/dL (83-110); Potassium 3.1 mmol/L (3.5-5.1); Sodium 137 mmol/L (136-145)
[2023-05-13] MEDS: Carvedilol 6.25 MG TAB PO SCH (08:38)
[2023-05-13] MEDS: Apixaban 5 MG TAB PO SCH ×2 (08:38→19:56)
[2023-05-13] MEDS: Aspirin Chewable 81 MG TAB PO SCH (08:38)
[2023-05-13] MEDS ORDERED: Potassium Chloride 20 MEQ TAB PO SCH (17:15)
[2023-05-13] MEDS ORDERED: Escitalopram Oxalate 10 mg Tablet PO SCH (17:30)
[2023-05-13] MEDS ORDERED: Carvedilol 6.25 MG TAB PO SCH (18:00)
[2023-05-13] MEDS: ALPRAZolam 0.5 MG TAB PO PRN (19:56)
[2023-05-13] MEDS: Potassium Chloride 20 MEQ TAB PO SCH (19:56)
[2023-05-13] MEDS: Atorvastatin Calcium 10 MG TAB PO SCH (19:56)
[2023-05-14] MEDS: Furosemide 20 MG/2 ML VIAL SLOW IVP SCH ×2 (05:17→14:16)
[2023-05-14 05:48] LABS: Anion Gap 13 mmol/L (10-20); BUN (Urea Nitrogen) 18 mg/dL (9.8-20.1); Calc. Creatinine Clearance 64 mL/min (70-130); Calcium 9.3 mg/dL (7.8-10.44); Carbon Dioxide 25 mmol/L (23-31); Chloride 102 mmol/L (98-107); Estimated GFR 72; Glucose 110 mg/dL (83-110); Potassium 3.6 mmol/L (3.5-5.1); Sodium 136 mmol/L (136-145)
[2023-05-14] MEDS ORDERED: Escitalopram Oxalate 10 mg Tablet PO SCH (09:00)
[2023-05-14] MEDS: Potassium Chloride 20 MEQ TAB PO SCH (09:55)
[2023-05-14] MEDS: Aspirin Chewable 81 MG TAB PO SCH (09:55)
[2023-05-14] MEDS: Carvedilol 6.25 MG TAB PO SCH ×2 (09:55→17:38)
[2023-05-14] MEDS: Apixaban 5 MG TAB PO SCH (09:56)
[2023-05-14 16:26] VITALS: BP 170/79; TEMP 98.4
== END 2023-05-14 17:33 | disposition home or self-care (01) | DRG 291 ==
LOC: ERS 13:21 → INTOOBSV 16:51 → 2NO 16:51 → OBSVTOIN 05-13 17:30
PROVIDERS: ADMIT Internal Medicine; ATTEND Family Medicine
DX: I13.0 Hypertensive heart and chronic kidney disease with heart failure and stage 1 through stage 4 chronic kidney disease, or unspecified chronic kidney disease (principal); I50.33 Acute on chronic diastolic (congestive) heart failure; I48.20 Chronic atrial fibrillation, unspecified; J98.11 Atelectasis; I42.8 Other cardiomyopathies; F41.9 Anxiety disorder, unspecified; F32.A Depression, unspecified; I25.10 Atherosclerotic heart disease of native coronary artery without angina pectoris; I34.0 Nonrheumatic mitral (valve) insufficiency; K52.9 Noninfective gastroenteritis and colitis, unspecified; E87.6 Hypokalemia; N18.30 Chronic kidney disease, stage 3 unspecified; Z86.73 Personal history of transient ischemic attack (TIA), and cerebral infarction without residual deficits; Z88.2 Allergy status to sulfonamides; Z88.1 Allergy status to other antibiotic agents; Z95.0 Presence of cardiac pacemaker; Z88.8 Allergy status to other drugs, medicaments and biological substances; Z79.01 Long term (current) use of anticoagulants; Z79.899 Other long term (current) drug therapy; Z85.038 Personal history of other malignant neoplasm of large intestine; Z90.710 Acquired absence of both cervix and uterus; Z98.890 Other specified postprocedural states; Z90.49 Acquired absence of other specified parts of digestive tract
CPT/HCPCS: 36415; 70450; 71045; 71275; 74177; 80048; 80053; 81001; 83690; 83735; 83880; 84443; 84484; 85025; 93005; 96374; 96376; G0378; J1940; Q9967

== ENCOUNTER 2023-08-30 15:27 | Outpatient (CLI) | payer OTHER | END 2023-08-30 15:28 | disposition home or self-care (01) | LOC: BICRAD 15:27 | PROVIDERS: ATTEND Family Medicine | DX: M25.551 Pain in right hip (principal); M41.9 Scoliosis, unspecified; M47.816 Spondylosis without myelopathy or radiculopathy, lumbar region; M47.817 Spondylosis without myelopathy or radiculopathy, lumbosacral region; M16.11 Unilateral primary osteoarthritis, right hip; M76.9 Unspecified enthesopathy, lower limb, excluding foot | CPT/HCPCS: 72100 ==

== ENCOUNTER 2023-12-25 02:22 | Inpatient (IN) | payer OTHER ==
[2023-12-25 03:13] LABS: #Basophils 0.03 10x3/uL (0.0-0.2); %Basophils 0.5 % (0.0-1.0); %Eosinophils 3.4 % (0.0-10.0); %Lymphocytes 38.1 % (21.0-51.0); %Monocytes 11.5 % (0.0-10.0); %Neutrophils 46.5 % (42.0-75.0); Hemoglobin 10.7 g/dL (12.0-16.0); Mean Corpuscular HGB CONC 33.4 g/dL (32.0-36.0); Mean Corpuscular Hemoglobin 31.4 pg (27.0-31.0); Mean Corpuscular Volume 93.8 fL (78.0-98.0); Mean Platelet Volume 10.3 fL (7.4-10.4); Platelet Count 145 10x3/uL (130-400); RBC Distribution Width 14.4 % (11.5-14.5); Red Blood Cell (RBC) Count 3.41 mill/uL (4.20-5.40)
[2023-12-25 03:23] LABS: INR-International Normal Ratio 1.5; PTT 36.4 sec (22.9-36.1); Prothrombin Time 17.7 sec (12.0-14.7)
[2023-12-25 03:30] LABS: ALT (SGPT) 15 U/L (8-55); AST (SGOT) 23 U/L (5-34); Albumin 3.4 g/dL (3.4-4.8); Alkaline Phosphatase 42 U/L (40-110); Anion Gap 11 mmol/L (10-20); BUN (Urea Nitrogen) 20 mg/dL (9.8-20.1); Bilirubin, Total 1.3 mg/dL (0.2-1.2); Calc. Creatinine Clearance 0 mL/min (70-130); Calcium 8.8 mg/dL (7.8-10.44); Carbon Dioxide 24 mmol/L (23-31); Chloride 106 mmol/L (98-107); Estimated GFR 44; Globulin 2.6 g/dL (2.4-3.5); Glucose 115 mg/dL (83-110); Potassium 3.1 mmol/L (3.5-5.1); Sodium 138 mmol/L (136-145)
[2023-12-25] MEDS ORDERED: Potassium Chloride 20 MEQ TAB ONE (03:44)
[2023-12-25] MEDS ORDERED: fentaNYL 50 mcg/mL 1 mL Vial ONE ×2 (04:06→05:06)
[2023-12-25] MEDS ORDERED: Ondansetron PF 4 MG/2 ML Vial IVP PRN (06:03)
[2023-12-25] MEDS ORDERED: Promethazine HCl 25 MG/ML VIAL IM PRN (06:03)
[2023-12-25] MEDS: Sodium Chloride 0.9% 1,000 ML IV SCH ×2 (07:39→08:57)
[2023-12-25 08:38] VITALS: BMI 28.1
[2023-12-25] MEDS: Famotidine 20 MG TAB PO SCH (08:55)
[2023-12-25] MEDS: Morphine 4 MG/ML VIAL SLOW IVP PRN (08:56)
[2023-12-25] MEDS ORDERED: Iopamidol-370 76% 500 ML MDV (1 ML CHARGE) ONE (14:57)
[2023-12-25 21:01] LABS: Hematocrit 26.4 % (36.0-47.0); Hemoglobin 8.5 g/dL (12.0-16.0)
[2023-12-26 05:20] LABS: #Basophils Less than 0.03 10x3/uL (0.0-0.2); %Basophils 0.5 % (0.0-1.0); %Eosinophils 5.4 % (0.0-10.0); %Lymphocytes 39.9 % (21.0-51.0); %Monocytes 12.9 % (0.0-10.0); %Neutrophils 41.1 % (42.0-75.0); Hematocrit 25.5 % (36.0-47.0); Hemoglobin 8.3 g/dL (12.0-16.0); Mean Corpuscular HGB CONC 32.5 g/dL (32.0-36.0); Mean Corpuscular Hemoglobin 32.9 pg (27.0-31.0); Mean Corpuscular Volume 101.2 fL (78.0-98.0); Mean Platelet Volume 10.1 fL (7.4-10.4); Platelet Count 121 10x3/uL (130-400); RBC Distribution Width 14.8 % (11.5-14.5); Red Blood Cell (RBC) Count 2.52 mill/uL (4.20-5.40)
[2023-12-26 05:37] LABS: Anion Gap 6 mmol/L (10-20); BUN (Urea Nitrogen) 10 mg/dL (9.8-20.1); Calc. Creatinine Clearance 69 mL/min (70-130); Carbon Dioxide 24 mmol/L (23-31); Chloride 109 mmol/L (98-107); Estimated GFR 76; Glucose 147 mg/dL (83-110); Potassium 3.2 mmol/L (3.5-5.1); Sodium 136 mmol/L (136-145)
[2023-12-26] MEDS ORDERED: Electrolyte Replacement Protocol 1 EACH FS SCH (08:07)
[2023-12-26] MEDS: Potassium Bicarbonate/Cit Ac 20 MEQ TAB PO SCH (08:24)
[2023-12-26] MEDS: ALPRAZolam 0.5 MG TAB PO PRN (17:07)
[2023-12-26] MEDS: Carvedilol 6.25 MG TAB PO SCH (17:07)
[2023-12-26] MEDS ORDERED: Simvastatin 20 MG TAB PO SCH (21:00)
[2023-12-26] MEDS: Apixaban 5 MG TAB PO SCH (21:02)
[2023-12-26] MEDS: Atorvastatin Calcium 10 MG TAB PO SCH (21:03)
[2023-12-27] MEDS: Acetaminophen 325 MG TAB PO PRN (03:35)
[2023-12-27] MEDS: Escitalopram Oxalate 10 mg Tablet PO SCH (09:28)
[2023-12-27] MEDS: Losartan 25 MG TAB PO SCH (09:29)
[2023-12-27] MEDS: Furosemide 40 MG TAB PO SCH (09:29)
[2023-12-28 12:01] VITALS: BP 147/75; TEMP 98
== END 2023-12-28 16:19 | disposition home or self-care (01) | DRG 605 ==
LOC: ERS 02:22 → SURG A 06:46
PROVIDERS: ADMIT Specialist; ATTEND Specialist
DX: S70.11XA Contusion of right thigh, initial encounter (principal); I48.91 Unspecified atrial fibrillation; I10 Essential (primary) hypertension; F32.A Depression, unspecified; S70.12XA Contusion of left thigh, initial encounter; W19.XXXA Unspecified fall, initial encounter; Z95.0 Presence of cardiac pacemaker; Z98.890 Other specified postprocedural states; Z90.49 Acquired absence of other specified parts of digestive tract; Z88.2 Allergy status to sulfonamides; Z88.1 Allergy status to other antibiotic agents; Z88.8 Allergy status to other drugs, medicaments and biological substances; Z79.899 Other long term (current) drug therapy
CPT/HCPCS: 36415; 72193; 80048; 80053; 85025; 85610; 85730; 96374; 96376; G0390; J2270; J2272; J3010; J7030; Q9967

== ENCOUNTER 2024-04-09 09:25 | Outpatient (CLI) | payer MEDICARE | END 2024-04-09 09:26 | disposition home or self-care (01) | LOC: LABBT 09:25 | PROVIDERS: ATTEND Internal Medicine Cardiovascular Disease | DX: Z01.810 Encounter for preprocedural cardiovascular examination (principal); I48.19 Other persistent atrial fibrillation; Z91.81 History of falling | CPT/HCPCS: 86922; 93005; 93010 ==

== ENCOUNTER 2024-04-09 09:30 | Inpatient (IN) | payer MEDICARE ==
[2024-04-09 09:53] VITALS: BMI 31.7
[2024-04-09 11:27] LABS: ALT (SGPT) 17 U/L (8-55); AST (SGOT) 26 U/L (5-34); Albumin 3.6 g/dL (3.4-4.8); Alkaline Phosphatase 31 U/L (40-110); Anion Gap 12 mmol/L (10-20); BUN (Urea Nitrogen) 14 mg/dL (9.8-20.1); Bilirubin, Total 2.2 mg/dL (0.2-1.2); Calc. Creatinine Clearance 0 mL/min (70-130); Calcium 9.2 mg/dL (7.8-10.44); Carbon Dioxide 32 mmol/L (23-31); Chloride 98 mmol/L (98-107); Estimated GFR 74; Globulin 3.2 g/dL (2.4-3.5); Glucose 110 mg/dL (83-110); Potassium 3.5 mmol/L (3.5-5.1); Protein, Total 6.8 g/dL (5.8-8.1); Sodium 138 mmol/L (136-145)
[2024-04-09 11:34] LABS: INR-International Normal Ratio 1.5
[2024-04-09 11:47] LABS: #Basophils 0.03 10x3/uL (0.0-0.2); %Basophils 0.7 % (0.0-1.0); %Eosinophils 3.4 % (0.0-10.0); %Lymphocytes 41.3 % (21.0-51.0); %Monocytes 11.1 % (0.0-10.0); %Neutrophils 43.3 % (42.0-75.0); Hematocrit 47.6 % (36.0-47.0); Hemoglobin 15.2 g/dL (12.0-16.0); Mean Corpuscular HGB CONC 31.9 g/dL (32.0-36.0); Mean Corpuscular Hemoglobin 31.7 pg (27.0-31.0); Mean Corpuscular Volume 99.4 fL (78.0-98.0); Mean Platelet Volume 10.5 fL (7.4-10.4); Platelet Adequacy Comment Platelets Decreased; Platelet Count 116 10x3/uL (130-400); RBC Distribution Width 13.3 % (11.5-14.5); RBC Morphology Within Normal Limits; Red Blood Cell (RBC) Count 4.79 mill/uL (4.20-5.40)
[2024-04-14] MEDS ORDERED: Heparin 10,000 UNITS/ 10 ML VIAL ONE (07:16)
[2024-04-14] MEDS ORDERED: Protamine Sulfate 50 MG/5 ML VIAL ONE (07:16)
[2024-04-14] MEDS ORDERED: CEFAZOLIN 2 GM VIAL ONE (08:01)
[2024-04-14] MEDS ORDERED: Ondansetron PF 4 MG/2 ML Vial ONE (09:16)
[2024-04-14] MEDS ORDERED: PROPOFOL 200 MG/20 ML VIAL ONE (09:16)
[2024-04-14] MEDS ORDERED: Rocuronium Bromide 10 MG/ML (10ML VIAL) ONE (09:16)
[2024-04-14] MEDS ORDERED: Lidocaine 1% PF 5 ML VIAL ONE (09:16)
[2024-04-14] MEDS ORDERED: Iopamidol 370 76% 100 ML VIAL ONE (10:30)
[2024-04-14] MEDS ORDERED: fentaNYL 50 mcg/mL 1 mL Vial ONE (10:30)
[2024-04-14] MEDS ORDERED: SUGAMMADEX SODIUM 200 MG/2 ML VIAL ONE (10:30)
[2024-04-14] MEDS ORDERED: Labetalol HCl 100 MG/20 ML VIAL ONE (10:56)
== END 2024-04-14 16:15 | disposition home or self-care (01) | DRG 274 ==
LOC: SURG A 04-14 07:10 → EDSTATUS 04-14 09:30
PROVIDERS: ADMIT Internal Medicine Cardiovascular Disease; ATTEND Internal Medicine Cardiovascular Disease
PROC: 02L73DK Occlusion of Left Atrial Appendage with Intraluminal Device, Percutaneous Approach (ICD-10-PCS; principal; 2024-04-14)
PROC: B24BZZ4 Ultrasonography of Heart with Aorta, Transesophageal (ICD-10-PCS; 2024-04-14)
DX: I48.19 Other persistent atrial fibrillation (principal); Z00.6 Encounter for examination for normal comparison and control in clinical research program; I25.10 Atherosclerotic heart disease of native coronary artery without angina pectoris; I42.9 Cardiomyopathy, unspecified; I10 Essential (primary) hypertension; F32.A Depression, unspecified; E11.9 Type 2 diabetes mellitus without complications; Z86.73 Personal history of transient ischemic attack (TIA), and cerebral infarction without residual deficits; Z79.899 Other long term (current) drug therapy; Z88.8 Allergy status to other drugs, medicaments and biological substances; Z88.1 Allergy status to other antibiotic agents; Z79.01 Long term (current) use of anticoagulants; Z95.0 Presence of cardiac pacemaker; Z98.890 Other specified postprocedural states
CPT/HCPCS: 33340; 80053; 85025; 85347; 85610; 85730; 86850; 86900; 86901; 86922; 93306; 93355; C1759; C1760; C1889; C1894; J1644; J2405; J2704; J2720; J3010; Q9967

== ENCOUNTER 2024-05-26 14:05 | Outpatient (CLI) | payer MEDICARE ==
[2024-05-26 16:43] LABS: INR-International Normal Ratio 1.2; PTT 32.9 sec (22.9-36.1); Prothrombin Time 14.7 sec (12.0-14.7)
[2024-05-26 16:46] LABS: Anion Gap 10 mmol/L (10-20); BUN (Urea Nitrogen) 12 mg/dL (9.8-20.1); Calc. Creatinine Clearance 0 mL/min (70-130); Calcium 9.1 mg/dL (7.8-10.44); Carbon Dioxide 33 mmol/L (23-31); Chloride 101 mmol/L (98-107); Estimated GFR 73; Glucose 117 mg/dL (83-110); Sodium 141 mmol/L (136-145)
[2024-05-26 17:01] LABS: Mean Corpuscular HGB CONC 32.8 g/dL (32.0-36.0)
[2024-05-26 17:02] LABS: #Basophils 0.04 10x3/uL (0.0-0.2); %Basophils 0.9 % (0.0-1.0); %Eosinophils 3.7 % (0.0-10.0); %Lymphocytes 39.9 % (21.0-51.0); %Monocytes 11.7 % (0.0-10.0); %Neutrophils 43.6 % (42.0-75.0); Hematocrit 47.2 % (36.0-47.0); Hemoglobin 15.5 g/dL (12.0-16.0); Mean Corpuscular Volume 100.4 fL (78.0-98.0); Mean Platelet Volume 10.6 fL (7.4-10.4); Platelet Count 132 10x3/uL (130-400); RBC Distribution Width 14.6 % (11.5-14.5)
== END 2024-05-26 14:06 | disposition home or self-care (01) ==
LOC: LABBT 14:05
PROVIDERS: ATTEND Internal Medicine Cardiovascular Disease
DX: Z01.812 Encounter for preprocedural laboratory examination (principal); I48.19 Other persistent atrial fibrillation
CPT/HCPCS: 80048; 85025; 85610; 85730

== ENCOUNTER 2024-05-30 05:37 | Day surgery (SDC) | payer MEDICARE ==
[2024-05-26 15:17] VITALS: BMI 28.1
== END 2024-05-30 09:15 | disposition home or self-care (01) ==
LOC: SDC 05:37
PROVIDERS: ATTEND Internal Medicine Cardiovascular Disease
PROC: B24BZZ4 Ultrasonography of Heart with Aorta, Transesophageal (ICD-10-PCS; principal; 2024-05-30)
DX: I48.19 Other persistent atrial fibrillation (principal); I10 Essential (primary) hypertension; I25.10 Atherosclerotic heart disease of native coronary artery without angina pectoris; E78.5 Hyperlipidemia, unspecified; E11.9 Type 2 diabetes mellitus without complications; F41.9 Anxiety disorder, unspecified; F32.A Depression, unspecified; K21.9 Gastro-esophageal reflux disease without esophagitis; G47.30 Sleep apnea, unspecified; Z95.818 Presence of other cardiac implants and grafts; Z96.653 Presence of artificial knee joint, bilateral; Z86.73 Personal history of transient ischemic attack (TIA), and cerebral infarction without residual deficits; Z88.1 Allergy status to other antibiotic agents; Z88.2 Allergy status to sulfonamides; Z88.8 Allergy status to other drugs, medicaments and biological substances; Z79.02 Long term (current) use of antithrombotics/antiplatelets; Z79.899 Other long term (current) drug therapy
CPT/HCPCS: 93312

== ENCOUNTER 2025-03-02 14:59 | Outpatient (CLI) | payer MEDICARE | END 2025-03-02 15:00 | disposition home or self-care (01) | LOC: CT 14:59 | PROVIDERS: ATTEND Family Medicine | DX: G96.00 Cerebrospinal fluid leak, unspecified (principal); I25.2 Old myocardial infarction | CPT/HCPCS: 70450 ==